=== PATIENT | female | born 1935 | race Caucasian/White ===

== ENCOUNTER 2016-12-13 10:31 | Inpatient (IN) | payer OTHER ==
[2016-12-13 10:45] VITALS: BMI 16.1
--- NOTE | 2016-12-13 10:49 | PDOC ---
History of Present Illness - General Chief Complaint: Shortness of Breath Stated Complaint: RESPIRATORY (PCP SENT) Time Seen by Provider: 12/13/16 10:48 - History of Present Illness Initial Comments: 81 year old female with PMH of HTN, HLD, chronic UTI, and emphysema (on 3L NC nightly for the pat 2 years) presenting with two weeks of worsening SOB and occasional confusion. Patient was in the intake for PFTs earlier today when she had a measured pulse ox of 82 on RA. She was not endorsing any SOB at the time but was sent to the ED for further workup after placing her on 2 L NC with return of saturation to 97%. She admits to a previous desat to 80s at her primary care visit a few weeks back as well. She has a chronic cough that is occasionally productive of yellow sputum and has not changed in quality recently. Per her daughter at bedside, she has also been more confused as of late. Denies fevers, chills, nausea, vomiting, diarrhea, or other sick symptoms. 12/13/16 12:44 Past History - Past Medical History Allergies/Adverse Reactions: Allergies Allergy/AdvReac Type Severity Reaction Status Date / Time levofloxacin [From Levaquin] Allergy Verified 12/13/16 10:45 prednisone AdvReac Verified 12/13/16 10:45 Home Medications: Ambulatory Orders Albuterol Sulfate [Proair Respiclick] 90 mcg IH BID 12/13/16 Aspirin [ASA -] 81 mg PO DAILY 12/13/16 Budesonide/Formeterol Fumarate [SYMBICORT 160/4.5mcg -] 1 inh PO BID 12/13/16 Calcium Carbonate/Vitamin D3 [Calcium 500-Vit D3 600 Tablet] 1 each PO DAILY Escitalopram Oxalate [Lexapro -] 15 mg PO DAILY 12/13/16 Hydrochlorothiazide [Hctz -] 12.5 mg PO BID 12/13/16 Ibandronate Sodium 150 mg PO MONTHLY 12/13/16 Magnesium 250 mg PO DAILY 12/13/16 Montelukast Na [Singulair -] 10 mg PO DAILY 12/13/16 Multivit-Min/Iron Fum/Folic AC [Ukxne-Qpqeekj-Thhphjdb Tablet] 1 tab PO DAILY Cancer: Yes (cervical 1973) COPD: Yes (emphysema) HTN: Yes - Surgical History Abdominal Surgery: (urinary track sx) - Suicide/Smoking/Psychosocial Hx Smoking History: Current every day smoker Number of Cigarettes Smoked Daily: 5 Information on smoking cessation initiated: Yes 'Breaking Loose' booklet given: 12/13/16 Hx Alcohol Use: No Drug/Substance Use Hx: No Substance Use Type: None Review of Systems - Review of Systems Constitutional: No: Chills, Diaphoresis, Fever HEENTM: No: Blurred Vision, Recent change in vision Respiratory: No: Cough, Orthopnea, Shortness of Breath Cardiac (ROS): No: Chest Pain ABD/GI: No: Diarrhea, Nausea, Poor Appetite : No: Dysuria, Discharge, Frequency Musculoskeletal: No: Back Pain Integumentary: No: Bruising, Change in Color Neurological: No: Headache, Numbness, Paresthesia *Physical Exam - Vital Signs Last Vital Signs Temp Pulse Resp BP Pulse Ox 98.2 F 80 19 133/74 82 L 12/13/16 10:42 12/13/16 10:42 12/13/16 10:42 12/13/16 10:42 12/13/16 10:42 - Physical Exam General Appearance: Yes: Nourished, Appropriately Dressed. No: Apparent Distress HEENT: positive: EOMI, Normal ENT Inspection, Normal Voice Neck: positive: Trachea midline, Normal Thyroid, Supple. negative: Tender, Rigid Respiratory/Chest: positive: Wheezing. negative: Chest Tender, Lungs Clear, Normal Breath Sounds, Respiratory Distress, Accessory Muscle Use Cardiovascular: positive: Regular Rhythm, Regular Rate, S1, S2, Murmur, Systolic Murmur (Midsystolic murmur) Gastrointestinal/Abdominal: positive: Normal Bowel Sounds, Flat, Soft. 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 Given her 110 (elevated WBC, hyponatremia, and age) point PSI score we will admit the patient with IV antibiotic therapy including azithromycin and ceftriaxone for CAP. Her UA also returned positive for WBCs but she has history of chronic UTI. She is asymptomatic for UTI but will be treated with ceftriaxone for her PNA. 12/13/16 14:30 *DC/Admit/Observation/Transfer Diagnosis at time of Disposition: Hypoxia Pneumonia Qualifiers: Pneumonia type: due to unspecified organism Laterality: left Lung location: lower lobe of lung Qualified Code(s): J18.1 - Lobar pneumonia, unspecified organism; J18.1 - Lobar pneumonia, unspecified organism; J18.1 - Lobar pneumonia , unspecified organism Urinary tract infection Qualifiers: Urinary tract infection type: site unspecified Hematuria presence: without hematuria Qualified Code(s): N39.0 - Urinary tract infection, site not specified ; N39.0 - Urinary tract infection, site not specified - Discharge Dispostion Disposition: HOME Admit: Yes - Referrals Referrals: Jay Salcedo [Primary Care Provider] -
[2016-12-13] MEDS ORDERED: ALBUTEROL SO4 2.5/IPRATROPIUM 0.5 INH SOL 3 ML VIAL.NEB. NEB ONE ×2 (11:24→11:34)
[2016-12-13 11:32] LABS: MCH 30.5 pg (25.7-33.7); MCHC 34.3 g/dl (32.0-36.0); MEAN CELL VOLUME 89.1 fl (80-96); MEAN PLT VOLUME 6.1 fl (7.5-11.1); PLATELET COUNT 255 K/MM3 (134-434); RDW 13.3 % (11.6-15.6); WHITE BLOOD COUNT 12.6 K/mm3 (4.0-10.0)
[2016-12-13 11:40] LABS: VENOUS PH 7.38 (7.32-7.42)
[2016-12-13 11:41] LABS: VENOUS BLOOD GAS HCO3 39.7 meq/L (19-25)
[2016-12-13 11:53] LABS: ALBUMIN 3.3 g/dl (3.4-5.0); ANION GAP 10 (8-16); CALCIUM 8.8 mg/dL (8.5-10.1); CO2 36 mmol/L (21-32); CREATININE 0.4 mg/dL (0.55-1.02); GLUCOSE,RANDOM 96 mg/dL (74-106); SGOT/AST 16 U/L (15-37); SGPT/ALT 21 U/L (12-78)
[2016-12-13 11:57] LABS: ALK PHOS 52 U/L (45-117); BILIRUBIN,TOTAL 0.6 mg/dL (0.2-1.0); CPK 40 IU/L (26-192); TOT PROT 6.9 g/dl (6.4-8.2); TROPONIN I < 0.02 ng/ml (0.00-0.05)
[2016-12-13 12:18] LABS: URINE APPEARANCE CLOUDY; URINE BILIRUBIN NEGATIVE (NEGATIVE); URINE BLOOD 1+ (NEGATIVE); URINE COLOR YELLOW; URINE GLUCOSE (UA) NEGATIVE (NEGATIVE); URINE KETONE NEGATIVE (NEGATIVE); URINE NITRITE NEGATIVE (NEGATIVE); URINE PROTEIN NEGATIVE (NEGATIVE); URINE UROBILINOGEN NEGATIVE mg/dL (0.2-1.0)
[2016-12-13 12:22] LABS: URINE MUCUS RARE; URINE RBC 1 /hpf (0-3); URINE WBC 143 /hpf (3-5)
[2016-12-13] MEDS ORDERED: AZITHROMYCIN IVPB 500 MG in DEXTROSE 5%-WATER - 250 ML IVPB ONE (12:47)
[2016-12-13] MEDS ORDERED: CEFTRIAXONE 50 ML ONE (12:49)
[2016-12-13] MEDS ORDERED: AZITHROMYCIN IVPB 250 ML IVPB ONE (12:49)
--- NOTE | 2016-12-13 12:53 | PDOC ---
Attending Attestation - Resident Resident Name: Jefe Dukes - ED Attending Attestation I have performed the following: I have examined & evaluated the patient, The case was reviewed & discussed with the resident, I agree w/resident's findings & plan, Exceptions are as noted - HPI HPI: 12/13/16 12:53 81 F with h/o HTN, emphysema on 2L home O2 at night, presenting to ER with SOB and hypoxia. Pt was at her pulm clinic appointment today for PFTs when she was found to be hypoxic to the 70s. Pt reports worsening SOB over the past several weeks. She denies orthopnea but states that she will occasionally have episodes of difficulty catching her breath. Pt denies F/C but endorses chronic nonproductive cough. She denies chest pain but reports L upper back pain. Pt states that she only uses oxygen at night time and not during the day. However, she was told by her PMD that she may need to start using daytime O2 as well. Pt denies leg swelling, denies calf pain, denies recent immobilization/travel, no h/o DVT/PE. - Physicial Exam PE: 12/13/16 13:00 "GENERAL: Awake, alert, and fully oriented, in no acute distress HEAD: No signs of trauma EYES: PERRLA, EOMI, sclera anicteric, conjunctiva clear ENT: Auricles normal inspection, hearing grossly normal, nares patent, oropharynx clear without exudates. Moist mucosa NECK: Nontender, no stepoffs, Normal ROM, supple, no lymphadenopathy, JVD, or masses LUNGS: LLL wheezes, no rales or rhonchi HEART: Regular rate and rhythm, normal S1 and S2, no murmurs, rubs or gallops ABDOMEN: Soft, nontender, normoactive bowel sounds. No guarding, no rebound. No masses EXTREMITIES: Normal range of motion, no edema. No clubbing or cyanosis. No cords, erythema, or tenderness NEUROLOGICAL: Cranial nerves II through XII intact. 5/5 strength and sensation in all extremities, Normal speech, normal gait SKIN: Warm, Dry, normal turgor, no rashes or lesions noted. " - Medical Decision Making 12/13/16 13:00 81 F with hypoxia and SOB. Exam concerning for LLL PNA. Possible worsening of pt 's chronic emphysema. No clinical signs/symptoms of DVT. EKG nonischemic and pt with no chest pain, making ACS unlikely. - Labs, trop - CXR 12/13/16 19:00 CXR shows PNA. Pt covered for CAP with ceftriaxone/azithro. Admit to hospitalist.
--- NOTE | 2016-12-13 14:52 | EKG ---
Test Reason : Blood Pressure : / mmHG Vent. Rate : 086 BPM Atrial Rate : 086 BPM P-R Int : 164 ms QRS Dur : 078 ms QT Int : 352 ms P-R-T Axes : 075 098 076 degrees QTc Int : 421 ms NORMAL SINUS RHYTHM LEFT ATRIAL ENLARGEMENT ANTEROLATERAL INFARCT , AGE UNDETERMINED ABNORMAL ECG WHEN COMPARED WITH ECG OF 21-MAY-2007 04:42, NO SIGNIFICANT CHANGE WAS FOUND Confirmed by ESTELLE SPRING MD ([id number]) on 12/13/2016 2:51:52 PM Referred By: Confirmed By:ESTELLE SPRING MD
--- NOTE | 2016-12-13 18:24 | HP ---
Admitting History and Physical - Primary Care Physician PCP: Merry Santiago - Admission History of Present Illness: 81 F with h/o HTN, emphysema on 2L home O2 at night, presenting to ER with SOB and hypoxia. Pt was at her pulm clinic appointment today for PFTs when she was found to be hypoxic to the 70s. Pt reports worsening SOB over the past several weeks. She denies orthopnea but states that she will occasionally have episodes of difficulty catching her breath. Pt states that she only uses oxygen at night time and not during the day. However, she was told by her PMD that she may need to start using daytime O2 as well. - Past Medical History Cardiovascular: Yes: HTN Pulmonary: Yes: COPD - Smoking History Smoking history: Current every day smoker Aproximately how many cigarettes per day: 5 - Alcohol/Substance Use Hx Alcohol Use: No Home Medications - Allergies Allergies/Adverse Reactions: Allergies Allergy/AdvReac Type Severity Reaction Status Date / Time levofloxacin [From Levaquin] Allergy Verified 12/13/16 10:45 prednisone AdvReac Verified 12/13/16 10:45 - Home Medications Home Medications: Ambulatory Orders Albuterol Sulfate [Proair Respiclick] 90 mcg IH BID 12/13/16 Aspirin [ASA -] 81 mg PO DAILY 12/13/16 Budesonide/Formeterol Fumarate [SYMBICORT 160/4.5mcg -] 1 inh PO BID 12/13/16 Calcium Carbonate/Vitamin D3 [Calcium 500-Vit D3 600 Tablet] 1 each PO DAILY Escitalopram Oxalate [Lexapro -] 15 mg PO DAILY 12/13/16 Hydrochlorothiazide [Hctz -] 12.5 mg PO BID 12/13/16 Magnesium 1 tab PO DAILY 12/13/16 Montelukast Na [Singulair -] 10 mg PO DAILY 12/13/16 Multivit-Min/Iron Fum/Folic AC [Recba-Ubccmsc-Zgpsevko Tablet] 1 tab PO DAILY Ramipril 2.5 mg PO DAILY 12/14/16 Amoxicillin/Potassium Clav [Augmentin 875-125 Tablet] 1 each PO BID #14 tablet 12/16/16 Physical Examination Vital Signs: Vital Signs Temperature 98.0 F 12/13/16 16:24 Pulse Rate 86 12/13/16 16:24 Respiratory Rate 16 12/13/16 16:24 Blood Pressure 91/54 12/13/16 16:24 O2 Sat by Pulse Oximetry (%) 91 L 12/13/16 16:24 Constitutional: Yes: No Distress HENT: Yes: Atraumatic Neck: Yes: Supple Cardiovascular: Yes: Regular Rate and Rhythm Respiratory: Yes: Rhonchi Gastrointestinal: Yes: Normal Bowel Sounds Extremities: Yes: WNL Neurological: Yes: Alert, Oriented Problem List - Problems (1) Hypoxia Assessment/Plan: on oxygen nc Code(s): R09.02 - HYPOXEMIA (2) PNA (pneumonia) Assessment/Plan: on iv abx Code(s): J18.9 - PNEUMONIA, UNSPECIFIED ORGANISM Qualifiers: Pneumonia type: due to unspecified organism Laterality: left Lung location: lower lobe of lung Qualified Code(s): J18.1 - Lobar pneumonia, unspecified organism; J18.1 - Lobar pneumonia, unspecified organism; J18.1 - Lobar pneumonia, unspecified organism (3) UTI (urinary tract infection) Assessment/Plan: uc pending on abx Code(s): N39.0 - URINARY TRACT INFECTION, SITE NOT SPECIFIED Qualifiers: Urinary tract infection type: site unspecified Hematuria presence: without hematuria Qualified Code(s): N39.0 - Urinary tract infection, site not specified; N39.0 - Urinary tract infection, site not specified; R31.9 - Hematuria, unspecified; R31.9 - Hematuria, unspecified (4) COPD (chronic obstructive pulmonary disease) Assessment/Plan: active smoker on home O2 duo neb Code(s): J44.9 - CHRONIC OBSTRUCTIVE PULMONARY DISEASE, UNSPECIFIED Assessment/Plan Laboratory Tests 12/13/16 12/13/16 12/13/16 11:24 11:24 11:24 WBC 12.6 H RBC 4.28 Hgb 13.1 Hct 38.1 MCV 89.1 MCH 30.5 MCHC 34.3 RDW 13.3 Plt Count 255 MPV 6.1 L VBG pH POC VBG pCO2 POC VBG pO2 Mixed VBG HCO3 Sodium 128 L Potassium 3.9 Chloride 82 L Carbon Dioxide 36 H Anion Gap 10 BUN 14 Creatinine 0.4 L Creat Clearance w eGFR > 60 Random Glucose 96 Calcium 8.8 Total Bilirubin 0.6 AST 16 ALT 21 Alkaline Phosphatase 52 Creatine Kinase 40 Cancelled Troponin I < 0.02 Cancelled B-Natriuretic Peptide 342.23 Cancelled Total Protein 6.9 Albumin 3.3 L Urine Color Urine Appearance Urine pH Ur Specific [place] Urine Protein Urine Glucose (UA) Urine Ketones Urine Blood Urine Nitrite Urine Bilirubin Urine Urobilinogen Ur Leukocyte Esterase Urine RBC Urine WBC Ur Epithelial Cells Urine Mucus 12/13/16 12/13/16 11:35 12:09 WBC RBC Hgb Hct MCV MCH MCHC RDW Plt Count MPV VBG pH 7.38 POC VBG pCO2 69.1 H* POC VBG pO2 25.0 L Mixed VBG HCO3 39.7 H Sodium Potassium Chloride Carbon Dioxide Anion Gap BUN Creatinine Creat Clearance w eGFR Random Glucose Calcium Total Bilirubin AST ALT Alkaline Phosphatase Creatine Kinase Troponin I B-Natriuretic Peptide Total Protein Albumin Urine Color Yellow Urine Appearance Cloudy Urine pH 7.0 Ur Specific [place] 1.015 Urine Protein Negative Urine Glucose (UA) Negative Urine Ketones Negative Urine Blood 1+ H Urine Nitrite Negative Urine Bilirubin Negative Urine Urobilinogen Negative Ur Leukocyte Esterase 3+ H Urine RBC 1 Urine WBC 143 Ur Epithelial Cells Rare Urine Mucus Rare Active Medications Generic Name Dose Route Start Last Admin Trade Name Freq PRN Reason Stop Dose Admin Acetaminophen 650 mg 12/13/16 18:35 Tylenol - PO Q6H PRN FEVER OR PAIN Aspirin 81 mg 12/14/16 10:00 Asa - PO DAILY [facility] Budesonide/Formoterol Fumarate 1 puff 12/13/16 22:00 Symbicort 160/4.5mcg - IH BID [facility] Escitalopram Oxalate 15 mg 12/14/16 10:00 Lexapro - PO DAILY [facility] Hydrochlorothiazide 12.5 mg 12/13/16 22:00 Hctz - PO BID [facility] Azithromycin 500 mg/ Dextrose 250 mls @ 250 mls/hr 12/14/16 10:00 IVPB DAILY [facility] CEFTRIAXONE 1 G/50 ML PREMIX 50 mls @ 200 mls/hr 12/14/16 10:00 Ceftriaxone 1 Gm-D5w Bag IVPB 12/14/16 11:59 DAILY [facility] Sodium Chloride 1,000 mls @ 75 mls/hr 12/13/16 19:15 12/13/16 19:11 Normal Saline - IV 75 mls/hr ASDIR [facility] Administration Montelukast Sodium 10 mg 12/14/16 10:00 Singulair - PO DAILY [facility] Multivitamins/Minerals/Vitamin C 1 tab 12/14/16 10:00 Tab-A-Vit - PO DAILY [facility] Non-Formulary Medication 90 mcg 12/13/16 22:00 Albuterol Sulfate [Proair Respiclick] IH BID [facility]
[2016-12-13] MEDS ORDERED: ACETAMINOPHEN 325 MG TABLET (FP) PO PRN (18:35)
[2016-12-13] MEDS: SODIUM CHLORIDE 1,000 ML IV SCH (19:11)
[2016-12-13 19:56] LABS: URINE LEUK ESTERASE 3+ (NEGATIVE)
[2016-12-13] MEDS: BUDESONIDE/FORMETEROL FUMARATE 160/4.5 mcg INHALER IH SCH (21:38)
[2016-12-13] MEDS: HYDROCHLOROTHIAZIDE 12.5 MG CAPSULE (FP) PO SCH (21:47)
[2016-12-13] MEDS ORDERED: ALBUTEROL SULFATE 90 MCG IH PRN (22:00)
[2016-12-14] MEDS ORDERED: PIPERACILLIN/TAZOB 3.375 GM 50 ML IVPB SCH (02:00)
[2016-12-14] MEDS: PIPERACILLIN/TAZOB 3.375 GM 50 ML IVPB SCH ×3 (02:23→17:33)
[2016-12-14 06:44] LABS: BASOPHIL 0.3 % (0-2.0); EOSINOPHIL 1.2 % (0-4.5); MCH 30.2 pg (25.7-33.7); MCHC 33.7 g/dl (32.0-36.0); MEAN CELL VOLUME 89.8 fl (80-96); MEAN PLT VOLUME 6.4 fl (7.5-11.1); NEUTROPHILS 62.1 % (42.8-82.8); PLATELET COUNT 258 K/MM3 (134-434); RDW 13.2 % (11.6-15.6); WHITE BLOOD COUNT 7.9 K/mm3 (4.0-10.0)
[2016-12-14] MEDS ORDERED: PT OWN MED DRAWER 7, Y5N ONE ×3 (06:44→21:49)
[2016-12-14 07:16] LABS: ALBUMIN 3.1 g/dl (3.4-5.0); ALK PHOS 53 U/L (45-117); ANION GAP 9 (8-16); BILIRUBIN,TOTAL 0.6 mg/dL (0.2-1.0); CALCIUM 8.4 mg/dL (8.5-10.1); CO2 37 mmol/L (21-32); CREATININE 0.4 mg/dL (0.55-1.02); GLUCOSE,RANDOM 87 mg/dL (74-106); SGOT/AST 15 U/L (15-37); SGPT/ALT 19 U/L (12-78); TOT PROT 6.4 g/dl (6.4-8.2)
[2016-12-14] MEDS: SODIUM CHLORIDE 1,000 ML IV SCH (08:24)
[2016-12-14] MEDS ORDERED: CEFTRIAXONE 1 G/50 ML PREMIX 50 ML IVPB SCH (10:00)
[2016-12-14] MEDS ORDERED: MONTELUKAST NA 10 MG TABLET PO SCH (10:00)
[2016-12-14] MEDS: AZITHROMYCIN IVPB 500 MG in DEXTROSE 5%-WATER - 250 ML IVPB SCH (10:23)
[2016-12-14] MEDS: ESCITALOPRAM OXALATE 10 MG TABLET (FP) PO SCH (10:23)
[2016-12-14] MEDS: ASPIRIN 81 MG CHEWABLE TABLETS PO SCH (10:23)
[2016-12-14] MEDS: HYDROCHLOROTHIAZIDE 12.5 MG CAPSULE (FP) PO SCH ×2 (10:23→21:51)
[2016-12-14] MEDS: MULTIVITAMINS (DAILY MVI) TABLET (FP) PO SCH (10:23)
[2016-12-14] MEDS: BUDESONIDE/FORMETEROL FUMARATE 160/4.5 mcg INHALER IH SCH ×2 (10:30→21:50)
[2016-12-14] MEDS: POLYETHYLENE GLYCOL 3350 119 GM BTL PO SCH (13:14)
--- NOTE | 2016-12-14 14:53 | PN ---
Progress Note, Physician History of Present Illness: doing well - Current Medication List Current Medications: Active Medications Acetaminophen (Tylenol -) 650 mg PO Q6H PRN PRN Reason: FEVER OR PAIN Aspirin (Asa -) 81 mg PO DAILY [facility] Last Admin: 12/14/16 10:23 Dose: 81 mg Budesonide/Formoterol Fumarate (Symbicort 160/4.5mcg -) 1 puff IH BID [facility] Last Admin: 12/14/16 10:30 Dose: 1 puff Escitalopram Oxalate (Lexapro -) 15 mg PO DAILY [facility] Last Admin: 12/14/16 10:23 Dose: 15 mg Hydrochlorothiazide (Hctz -) 12.5 mg PO BID [facility] Last Admin: 12/14/16 10:23 Dose: 12.5 mg Azithromycin 500 mg/ Dextrose 250 mls @ 250 mls/hr IVPB DAILY [facility] Last Admin: 12/14/16 10:23 Dose: 250 mls/hr Sodium Chloride (Normal Saline -) 1,000 mls @ 75 mls/hr IV ASDIR [facility] Last Admin: 12/14/16 08:24 Dose: 75 mls/hr Piperacillin/Tazobactam/Dextrose (Zosyn 3.375gm Ivpb (Premix)) 50 mls @ 100 mls /hr IVPB Q8H-IV [facility] PRN Reason: Protocol Last Admin: 12/14/16 10:23 Dose: 100 mls/hr Montelukast Sodium (Singulair -) 10 mg PO [facility] Multivitamins/Minerals/Vitamin C (Tab-A-Vit -) 1 tab PO DAILY [facility] Last Admin: 12/14/16 10:23 Dose: 1 tab Pt's Own Med ( Albuterol Sulfate [ Proair Respiclick] 90 Mcg) 90 mcg IH Q4H PRN Last Admin: 12/14/16 08:23 Dose: 90 mcg Polyethylene Glycol (Miralax (For Daily Use) -) 17 gm PO DAILY [facility] Last Admin: 12/14/16 13:14 Dose: 17 gm Ramipril (Altace -) 2.5 mg PO DAILY [facility] - Objective Vital Signs: Vital Signs Temperature 97.9 F 12/14/16 08:00 Pulse Rate 78 12/14/16 08:00 Respiratory Rate 18 12/14/16 08:00 Blood Pressure 157/83 12/14/16 08:00 O2 Sat by Pulse Oximetry (%) 98 12/14/16 09:00 Constitutional: Yes: No Distress HENT: Yes: Atraumatic Neck: Yes: Supple Cardiovascular: Yes: Regular Rate and Rhythm Respiratory: Yes: CTA Bilaterally, Rhonchi Gastrointestinal: Yes: Normal Bowel Sounds Extremities: Yes: WNL Neurological: Yes: Alert, Oriented Labs: CBC, BMP 12/14/16 05:40 12/14/16 05:40 Problem List - Problems (1) Hypoxia Assessment/Plan: on oxygen nc Code(s): R09.02 - HYPOXEMIA (2) PNA (pneumonia) Assessment/Plan: on iv abx Code(s): J18.9 - PNEUMONIA, UNSPECIFIED ORGANISM Qualifiers: Pneumonia type: due to unspecified organism Laterality: left Lung location: lower lobe of lung Qualified Code(s): J18.1 - Lobar pneumonia, unspecified organism; J18.1 - Lobar pneumonia, unspecified organism; J18.1 - Lobar pneumonia, unspecified organism (3) UTI (urinary tract infection) Assessment/Plan: pending will repeat as contaminated Code(s): N39.0 - URINARY TRACT INFECTION, SITE NOT SPECIFIED Qualifiers: Urinary tract infection type: site unspecified Hematuria presence: without hematuria Qualified Code(s): N39.0 - Urinary tract infection, site not specified; N39.0 - Urinary tract infection, site not specified; R31.9 - Hematuria, unspecified; R31.9 - Hematuria, unspecified
--- NOTE | 2016-12-14 16:01 | CON.PULM ---
Consult Consult Specialty:: PULMONARY Referred by:: PMD Reason for Consultation:: SOB/COUGH/SPUTUM/HYPOXEMIA - History of Present Illness Chief Complaint: SOB History of Present Illness: 81 year old female with PMH of HTN, HLD, chronic UTI, and emphysema (on 3L NC nightly for the pat 2 years) presenting with two weeks of worsening SOB and occasional confusion. Patient was in the intake for PFTs earlier today when she had a measured pulse ox of 82 on RA. She was not endorsing any SOB at the time but was sent to the ED for further workup after placing her on 2 L NC with return of saturation to 97%. She admits to a previous desat to 80s at her primary care visit a few weeks back as well. She has a chronic cough that is occasionally productive of yellow sputum and has not changed in quality recently. Per her daughter at bedside, she has also been more confused as of late. Denies fevers, chills, nausea, vomiting, diarrhea, or other sick symptoms. 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 No: AFIB Pulmonary: Yes: COPD, O2 Dependent. No: Previously Intubated Gastrointestinal: No: Ascites Hepatobiliary: No: Cirrhosis Renal/: No: Renal Failure ...: No Heme/Onc: No: Anemia Infectious Disease: No: AIDS Psych: No: Addictions Musculoskeletal: No: Bursitis Rheumatology: No: Fibromyalgia ENT: No: Allergic Rhinitis Endocrine: No: Diabetes Mellitus - Alcohol/Substance Use Hx Alcohol Use: No - Smoking History Smoking history: Current every day smoker Aproximately how many cigarettes per day: 5 Home Medications - Allergies Allergies/Adverse Reactions: Allergies Allergy/AdvReac Type Severity Reaction Status Date / Time levofloxacin [From Levaquin] Allergy Verified 12/13/16 10:45 prednisone AdvReac Verified 12/13/16 10:45 - Home Medications Home Medications: Ambulatory Orders Albuterol Sulfate [Proair Respiclick] 90 mcg IH BID 12/13/16 Aspirin [ASA -] 81 mg PO DAILY 12/13/16 Budesonide/Formeterol Fumarate [SYMBICORT 160/4.5mcg -] 1 inh PO BID 12/13/16 Calcium Carbonate/Vitamin D3 [Calcium 500-Vit D3 600 Tablet] 1 each PO DAILY Escitalopram Oxalate [Lexapro -] 15 mg PO DAILY 12/13/16 Hydrochlorothiazide [Hctz -] 12.5 mg PO BID 12/13/16 Magnesium 1 tab PO DAILY 12/13/16 Montelukast Na [Singulair -] 10 mg PO DAILY 12/13/16 Multivit-Min/Iron Fum/Folic AC [Kptcc-Tncidfz-Qcnkeakx Tablet] 1 tab PO DAILY Ramipril 2.5 mg PO DAILY 12/14/16 Family Disease History - Family Disease History Family History: Unremarkable Review of Systems - Review of Systems Cardiovascular: reports: No Symptoms Respiratory: reports: Cough, Exercise Intolerance, SOB, SOB on Exertion. denies : Hemoptysis, Orthopnea, Wheezing Gastrointestinal: reports: No Symptoms Physical Exam Vital Sings: Vital Signs Temperature 98.4 F 12/14/16 15:39 Pulse Rate 79 12/14/16 15:39 Respiratory Rate 18 12/14/16 15:39 Blood Pressure 126/58 12/14/16 15:39 O2 Sat by Pulse Oximetry (%) 98 12/14/16 09:00 Constitutional: Yes: Calm Eyes: Yes: EOM Intact HENT: Yes: Normocephalic Neck: Yes: Trachea Midline Cardiovascular: Yes: S1, S2 Gastrointestinal: Yes: Soft Edema: No Neurological: Yes: Alert Labs: CBC, BMP 12/14/16 05:40 12/14/16 05:40 REST REVIEWED Imaging - Results Chest X-ray: Report Reviewed, Image Reviewed Problem List - Problems (1) Hypoxia Code(s): R09.02 - HYPOXEMIA (2) PNA (pneumonia) Code(s): J18.9 - PNEUMONIA, UNSPECIFIED ORGANISM Qualifiers: Pneumonia type: due to unspecified organism Laterality: left Lung location: lower lobe of lung Qualified Code(s): J18.1 - Lobar pneumonia, unspecified organism; J18.1 - Lobar pneumonia, unspecified organism; J18.1 - Lobar pneumonia, unspecified organism (3) UTI (urinary tract infection) Code(s): N39.0 - URINARY TRACT INFECTION, SITE NOT SPECIFIED Qualifiers: Urinary tract infection type: site unspecified Hematuria presence: without hematuria Qualified Code(s): N39.0 - Urinary tract infection, site not specified; N39.0 - Urinary tract infection, site not specified; R31.9 - Hematuria, unspecified; R31.9 - Hematuria, unspecified Assessment/Plan A/E COPD CHRONIC O2 USE ACTIVE SMOKER ICS/LABA/ISAAC/LAMA/ANTIBIOTICS/O2/DALIRESP AVOID SYSTEMIC STEROIDS DUE TO PREVIOUS ANXIETY-DEPRESSIVE EPISODE REQUIRING HOSPITALIZATION WILL FOLLOW Nydia ESCOBAR MD
--- NOTE | 2016-12-14 17:11 | CON.ID ---
Consult Consult Specialty:: infectious diseases Reason for Consultation:: copd exaceberation,pneumonia - History of Present Illness Chief Complaint: sob History of Present Illness: 81 year old female with PMH of HTN, HLD, chronic UTI, and emphysema on nasal cannula presenting with two weeks of worsening SOB and occasional confusion. She came in for PFTs earlier today when she had a measured pulse ox of 82 on RA. was sent to the ED for further workup after placing her on 2 L NC with return of saturation to 97%. according to her daughter her desating has been going for quite some time and she mentions that since summer she has seen her mother detoriate her night oxygen use has been constant for quite a few years she is thin as is her body status according to the patient he color of sputum has changed from yellow to greenish to yellow patient has a known history of mvp - History Source History Provided By: Patient, Family Member Limitations to Obtaining History: Other (forgetfulness) - Past Medical History [employer]: No: Alzheimer's Cardio/Vascular: Yes: HTN. No: AFIB Pulmonary: Yes: COPD, O2 Dependent. No: Previously Intubated Gastrointestinal: No: Ascites Hepatobiliary: No: Cirrhosis Renal/: No: Renal Failure ...: No Infectious Disease: No: AIDS Psych: No: Addictions Musculoskeletal: No: Bursitis Rheumatology: No: Fibromyalgia ENT: No: Allergic Rhinitis Endocrine: No: Diabetes Mellitus - Alcohol/Substance Use Hx Alcohol Use: No - Smoking History Smoking history: Current every day smoker Aproximately how many cigarettes per day: 5 Home Medications - Allergies Allergies/Adverse Reactions: Allergies Allergy/AdvReac Type Severity Reaction Status Date / Time levofloxacin [From Levaquin] Allergy Verified 12/13/16 10:45 prednisone AdvReac Verified 12/13/16 10:45 - Home Medications Home Medications: Ambulatory Orders Albuterol Sulfate [Proair Respiclick] 90 mcg IH BID 12/13/16 Aspirin [ASA -] 81 mg PO DAILY 12/13/16 Budesonide/Formeterol Fumarate [SYMBICORT 160/4.5mcg -] 1 inh PO BID 12/13/16 Calcium Carbonate/Vitamin D3 [Calcium 500-Vit D3 600 Tablet] 1 each PO DAILY Escitalopram Oxalate [Lexapro -] 15 mg PO DAILY 12/13/16 Hydrochlorothiazide [Hctz -] 12.5 mg PO BID 12/13/16 Magnesium 1 tab PO DAILY 12/13/16 Montelukast Na [Singulair -] 10 mg PO DAILY 12/13/16 Multivit-Min/Iron Fum/Folic AC [Jlatn-Vrnybbv-Vwugbzpm Tablet] 1 tab PO DAILY Ramipril 2.5 mg PO DAILY 12/14/16 Review of Systems - Review of Systems Constitutional: reports: No Symptoms Eyes: reports: No Symptoms HENT: reports: No Symptoms Neck: reports: No Symptoms Cardiovascular: reports: No Symptoms Respiratory: reports: Cough, SOB, Other Gastrointestinal: reports: No Symptoms Genitourinary: reports: No Symptoms Musculoskeletal: reports: No Symptoms Integumentary: reports: No Symptoms Neurological: reports: No Symptoms Endocrine: reports: No Symptoms Hematology/Lymphatic: reports: No Symptoms Psychiatric: reports: No Symptoms Physical Exam Vital Signs: Vital Signs Temperature 98.4 F 12/14/16 15:39 Pulse Rate 79 12/14/16 15:39 Respiratory Rate 18 12/14/16 15:39 Blood Pressure 126/58 12/14/16 15:39 O2 Sat by Pulse Oximetry (%) 98 12/14/16 09:00 Constitutional: Yes: Thin Eyes: Yes: Conjunctiva Clear HENT: Yes: Atraumatic Neck: Yes: Supple, Trachea Midline Cardiovascular: Yes: Regular Rate and Rhythm Respiratory: Yes: On Nasal O2, Poor Air Entry, Other (decreased air entry at the bases) Gastrointestinal: Yes: Normal Bowel Sounds, Soft Musculoskeletal: Yes: WNL Extremities: Yes: WNL Neurological: Yes: Alert, Oriented Psychiatric: Yes: Alert, Oriented Labs: CBC, BMP 12/14/16 05:40 12/14/16 05:40 Imaging - Results Chest X-ray: Report Reviewed, Image Reviewed Assessment/Plan Problem List - Problems (1) Hypoxia Code(s): R09.02 - HYPOXEMIA (2) PNA (pneumonia) Code(s): J18.9 - PNEUMONIA, UNSPECIFIED ORGANISM Qualifiers: Pneumonia type: due to unspecified organism Laterality: left Lung location: lower lobe of lung Qualified Code(s): J18.1 - Lobar pneumonia, unspecified organism; J18.1 - Lobar pneumonia, unspecified organism; J18.1 - Lobar pneumonia, unspecified organism (3) UTI (urinary tract infection) Code(s): N39.0 - URINARY TRACT INFECTION, SITE NOT SPECIFIED Qualifiers: Urinary tract infection type: site unspecified Hematuria presence: without hematuria Qualified Code(s): N39.0 - Urinary tract infection, site not specified; N39.0 - Urinary tract infection, site not specified; R31.9 - Hematuria, unspecified; R31.9 - Hematuria, unspecified plan will continue zosyn nutrition incentive rosina pul rest as per primary sputum culture
[2016-12-14] MEDS: TIOTROPIUM BROMIDE 18 MCG/INH (DEVICE W/ 5 CAPSULES) IH SCH (18:45)
[2016-12-14] MEDS: MONTELUKAST NA 10 MG TABLET PO SCH (21:51)
[2016-12-15] MEDS: ALBUTEROL SO4 0.083% IH SOL 2.5 MG/3 ML VIAL.NEB. NEB SCH ×3 (00:03→22:20)
[2016-12-15] MEDS: PIPERACILLIN/TAZOB 3.375 GM 50 ML IVPB SCH ×3 (02:18→19:00)
[2016-12-15] MEDS ORDERED: PT OWN MED DRAWER 7, Y5N ONE ×4 (10:41→21:50)
[2016-12-15] MEDS: AZITHROMYCIN IVPB 500 MG in DEXTROSE 5%-WATER - 250 ML IVPB SCH (10:46)
[2016-12-15] MEDS: HYDROCHLOROTHIAZIDE 12.5 MG CAPSULE (FP) PO SCH ×2 (11:23→21:39)
[2016-12-15] MEDS: RAMIPRIL 2.5 MG CAPSULE (FP) PO SCH (11:23)
[2016-12-15] MEDS: ESCITALOPRAM OXALATE 10 MG TABLET (FP) PO SCH (11:23)
[2016-12-15] MEDS: MULTIVITAMINS (DAILY MVI) TABLET (FP) PO SCH (11:23)
[2016-12-15] MEDS: ROFLUMILAST 500 MCG TABLET PO SCH (11:24)
[2016-12-15] MEDS: ASPIRIN 81 MG CHEWABLE TABLETS PO SCH (11:24)
[2016-12-15] MEDS: BUDESONIDE/FORMETEROL FUMARATE 160/4.5 mcg INHALER IH SCH ×2 (11:25→21:39)
[2016-12-15] MEDS: TIOTROPIUM BROMIDE 18 MCG/INH (DEVICE W/ 5 CAPSULES) IH SCH (11:25)
[2016-12-15] MEDS: POLYETHYLENE GLYCOL 3350 119 GM BTL PO SCH (11:25)
--- NOTE | 2016-12-15 13:01 | PN ---
Progress Note (short form) - Note Progress Note: PULMONARY VSS/AFEBRILE ANICTERIC DIMINISHED B/L BREATH SOUNDS S1S2 BS+ NO EDEMA LABS/MEDS/NOTES/IMAGES/MICRO REVIEWED (1) Hypoxia Code(s): R09.02 - HYPOXEMIA (2) PNA (pneumonia) Code(s): J18.9 - PNEUMONIA, UNSPECIFIED ORGANISM Qualifiers: Pneumonia type: due to unspecified organism Laterality: left Lung location: lower lobe of lung Qualified Code(s): J18.1 - Lobar pneumonia, unspecified organism; J18.1 - Lobar pneumonia, unspecified organism; J18.1 - Lobar pneumonia, unspecified organism (3) UTI (urinary tract infection) Code(s): N39.0 - URINARY TRACT INFECTION, SITE NOT SPECIFIED Qualifiers: Urinary tract infection type: site unspecified Hematuria presence: without hematuria Qualified Code(s): N39.0 - Urinary tract infection, site not specified; N39.0 - Urinary tract infection, site not specified; R31.9 - Hematuria, unspecified; R31.9 - Hematuria, unspecified A/E COPD LEFT LOWEWR LOBE INFILTRATE CHRONIC O2 USE ACTIVE SMOKER ICS/LABA/ISAAC/LAMA/ANTIBIOTICS/O2/DALIRESP AVOID SYSTEMIC STEROIDS DUE TO PREVIOUS ANXIETY-DEPRESSIVE EPISODE REQUIRING HOSPITALIZATION WILL ORDER CT CHEST/ECHO Nydia ESCOBAR MD Problem List - Problems (1) Hypoxia Code(s): R09.02 - HYPOXEMIA (2) PNA (pneumonia) Code(s): J18.9 - PNEUMONIA, UNSPECIFIED ORGANISM Qualifiers: Pneumonia type: due to unspecified organism Laterality: left Lung location: lower lobe of lung Qualified Code(s): J18.1 - Lobar pneumonia, unspecified organism; J18.1 - Lobar pneumonia, unspecified organism; J18.1 - Lobar pneumonia, unspecified organism (3) UTI (urinary tract infection) Code(s): N39.0 - URINARY TRACT INFECTION, SITE NOT SPECIFIED Qualifiers: Urinary tract infection type: site unspecified Hematuria presence: without hematuria Qualified Code(s): N39.0 - Urinary tract infection, site not specified; N39.0 - Urinary tract infection, site not specified; R31.9 - Hematuria, unspecified; R31.9 - Hematuria, unspecified
--- NOTE | 2016-12-15 16:44 | PN ---
Progress Note, Physician History of Present Illness: feeling better family in room discussed with them - Current Medication List Current Medications: Active Medications Acetaminophen (Tylenol -) 650 mg PO Q6H PRN PRN Reason: FEVER OR PAIN Albuterol Sulfate (Ventolin 0.083% Nebulizer Soln -) 1 amp NEB Q8H [facility] Last Admin: 12/15/16 13:50 Dose: Not Given Aspirin (Asa -) 81 mg PO DAILY [facility] Last Admin: 12/15/16 11:24 Dose: 81 mg Budesonide/Formoterol Fumarate (Symbicort 160/4.5mcg -) 1 puff IH BID [facility] Last Admin: 12/15/16 11:25 Dose: 1 puff Escitalopram Oxalate (Lexapro -) 15 mg PO DAILY [facility] Last Admin: 12/15/16 11:23 Dose: 15 mg Hydrochlorothiazide (Hctz -) 12.5 mg PO BID [facility] Last Admin: 12/15/16 11:23 Dose: 12.5 mg Azithromycin 500 mg/ Dextrose 250 mls @ 250 mls/hr IVPB DAILY [facility] Last Admin: 12/15/16 10:46 Dose: 250 mls/hr Piperacillin/Tazobactam/Dextrose (Zosyn 3.375gm Ivpb (Premix)) 50 mls @ 100 mls /hr IVPB Q8H-IV [facility] PRN Reason: Protocol Last Admin: 12/15/16 11:26 Dose: 100 mls/hr Montelukast Sodium (Singulair -) 10 mg PO HS [facility] Last Admin: 12/14/16 21:51 Dose: 10 mg Multivitamins/Minerals/Vitamin C (Tab-A-Vit -) 1 tab PO DAILY [facility] Last Admin: 12/15/16 11:23 Dose: 1 tab Pt's Own Med ( Albuterol Sulfate [ Proair Respiclick] 90 Mcg) 90 mcg IH Q4H PRN Last Admin: 12/14/16 08:23 Dose: 90 mcg Polyethylene Glycol (Miralax (For Daily Use) -) 17 gm PO DAILY [facility] Last Admin: 12/15/16 11:25 Dose: 17 gm Ramipril (Altace -) 2.5 mg PO DAILY [facility] Last Admin: 12/15/16 11:23 Dose: 2.5 mg Roflumilast (Daliresp -) 500 mcg PO DAILY [facility] Last Admin: 12/15/16 11:24 Dose: 500 mcg Tiotropium [place] (Spiriva -) 1 puff IH DAILY [facility] Last Admin: 12/15/16 11:25 Dose: 1 puff - Objective Vital Signs: Vital Signs Temperature 97.5 F L 12/15/16 15:32 Pulse Rate 77 12/15/16 15:32 Respiratory Rate 20 12/15/16 06:00 Blood Pressure 115/65 12/15/16 15:32 O2 Sat by Pulse Oximetry (%) 96 12/15/16 09:00 Constitutional: Yes: No Distress, Calm, Thin Cardiovascular: Yes: Regular Rate and Rhythm Respiratory: Yes: On Nasal O2, Rhonchi, Other (poor entry on both lower lobes) Gastrointestinal: Yes: Normal Bowel Sounds, Soft Musculoskeletal: Yes: WNL Extremities: Yes: WNL Neurological: Yes: Alert, Oriented Psychiatric: Yes: Alert Labs: CBC, BMP 12/14/16 05:40 12/14/16 05:40 - ....Imaging Cat Scan: Report Reviewed, Image Reviewed Assessment/Plan Problem List - Problems (1) Hypoxia Code(s): R09.02 - HYPOXEMIA (2) PNA (pneumonia) Code(s): J18.9 - PNEUMONIA, UNSPECIFIED ORGANISM Qualifiers: Pneumonia type: due to unspecified organism Laterality: left Lung location: lower lobe of lung Qualified Code(s): J18.1 - Lobar pneumonia, unspecified organism; J18.1 - Lobar pneumonia, unspecified organism; J18.1 - Lobar pneumonia, unspecified organism (3) UTI (urinary tract infection) Code(s): N39.0 - URINARY TRACT INFECTION, SITE NOT SPECIFIED Qualifiers: Urinary tract infection type: site unspecified Hematuria presence: without hematuria Qualified Code(s): N39.0 - Urinary tract infection, site not specified; N39.0 - Urinary tract infection, site not specified; R31.9 - Hematuria, unspecified; R31.9 - Hematuria, unspecified plan continue abx await for sputum cx await for all other cx rest as per pul/primary incentive rosina
--- NOTE | 2016-12-15 17:38 | PN ---
Progress Note, Physician History of Present Illness: doing well - Current Medication List Current Medications: Active Medications Acetaminophen (Tylenol -) 650 mg PO Q6H PRN PRN Reason: FEVER OR PAIN Albuterol Sulfate (Ventolin 0.083% Nebulizer Soln -) 1 amp NEB Q8H [facility] Last Admin: 12/15/16 13:50 Dose: Not Given Aspirin (Asa -) 81 mg PO DAILY [facility] Last Admin: 12/15/16 11:24 Dose: 81 mg Budesonide/Formoterol Fumarate (Symbicort 160/4.5mcg -) 1 puff IH BID [facility] Last Admin: 12/15/16 11:25 Dose: 1 puff Escitalopram Oxalate (Lexapro -) 15 mg PO DAILY [facility] Last Admin: 12/15/16 11:23 Dose: 15 mg Hydrochlorothiazide (Hctz -) 12.5 mg PO BID [facility] Last Admin: 12/15/16 11:23 Dose: 12.5 mg Azithromycin 500 mg/ Dextrose 250 mls @ 250 mls/hr IVPB DAILY [facility] Last Admin: 12/15/16 10:46 Dose: 250 mls/hr Piperacillin/Tazobactam/Dextrose (Zosyn 3.375gm Ivpb (Premix)) 50 mls @ 100 mls /hr IVPB Q8H-IV [facility] PRN Reason: Protocol Last Admin: 12/15/16 11:26 Dose: 100 mls/hr Montelukast Sodium (Singulair -) 10 mg PO HS [facility] Last Admin: 12/14/16 21:51 Dose: 10 mg Multivitamins/Minerals/Vitamin C (Tab-A-Vit -) 1 tab PO DAILY [facility] Last Admin: 12/15/16 11:23 Dose: 1 tab Pt's Own Med ( Albuterol Sulfate [ Proair Respiclick] 90 Mcg) 90 mcg IH Q4H PR[facility] Last Admin: 12/14/16 08:23 Dose: 90 mcg Polyethylene Glycol (Miralax (For Daily Use) -) 17 gm PO DAILY [facility] Last Admin: 12/15/16 11:25 Dose: 17 gm Ramipril (Altace -) 2.5 mg PO DAILY [facility] Last Admin: 12/15/16 11:23 Dose: 2.5 mg Roflumilast (Daliresp -) 500 mcg PO DAILY [facility] Last Admin: 12/15/16 11:24 Dose: 500 mcg Tiotropium [place] (Spiriva -) 1 puff IH DAILY [facility] Last Admin: 12/15/16 11:25 Dose: 1 puff - Objective Vital Signs: Vital Signs Temperature 97.5 F L 12/15/16 15:32 Pulse Rate 77 12/15/16 15:32 Respiratory Rate 20 12/15/16 06:00 Blood Pressure 115/65 12/15/16 15:32 O2 Sat by Pulse Oximetry (%) 96 12/15/16 09:00 HENT: Yes: WNL Cardiovascular: Yes: Regular Rate and Rhythm Respiratory: Yes: CTA Bilaterally Gastrointestinal: Yes: Normal Bowel Sounds Extremities: Yes: WNL Neurological: Yes: Alert, Oriented Labs: CBC, BMP 12/14/16 05:40 12/14/16 05:40 Problem List - Problems (1) Hypoxia Assessment/Plan: on oxygen nc Code(s): R09.02 - HYPOXEMIA (2) PNA (pneumonia) Assessment/Plan: on iv abx Code(s): J18.9 - PNEUMONIA, UNSPECIFIED ORGANISM Qualifiers: Pneumonia type: due to unspecified organism Laterality: left Lung location: lower lobe of lung Qualified Code(s): J18.1 - Lobar pneumonia, unspecified organism; J18.1 - Lobar pneumonia, unspecified organism; J18.1 - Lobar pneumonia, unspecified organism (3) UTI (urinary tract infection) Assessment/Plan: pending Code(s): N39.0 - URINARY TRACT INFECTION, SITE NOT SPECIFIED Qualifiers: Urinary tract infection type: site unspecified Hematuria presence: without hematuria Qualified Code(s): N39.0 - Urinary tract infection, site not specified; N39.0 - Urinary tract infection, site not specified; R31.9 - Hematuria, unspecified; R31.9 - Hematuria, unspecified Assessment/Plan
[2016-12-15] MEDS: MONTELUKAST NA 10 MG TABLET PO SCH (21:39)
[2016-12-15] MEDS: NICOTINE 21 MG/24 HOURS TOPICAL PATCH TD SCH (21:40)
[2016-12-16] MEDS: PIPERACILLIN/TAZOB 3.375 GM 50 ML IVPB SCH ×3 (02:38→17:26)
[2016-12-16] MEDS: ALBUTEROL SO4 0.083% IH SOL 2.5 MG/3 ML VIAL.NEB. NEB SCH ×2 (06:05→14:01)
[2016-12-16 08:51] LABS: FREE T4 1.34 ng/dl (0.76-1.46); THYROID STIMULATING HORMONE 1.06 uIU/ml (0.358-3.74)
[2016-12-16] MEDS ORDERED: PT OWN MED DRAWER 7, Y5N ONE (09:39)
[2016-12-16] MEDS: ROFLUMILAST 500 MCG TABLET PO SCH (09:44)
[2016-12-16] MEDS: RAMIPRIL 2.5 MG CAPSULE (FP) PO SCH (09:44)
[2016-12-16] MEDS: ESCITALOPRAM OXALATE 10 MG TABLET (FP) PO SCH (09:44)
[2016-12-16] MEDS: TIOTROPIUM BROMIDE 18 MCG/INH (DEVICE W/ 5 CAPSULES) IH SCH (09:44)
[2016-12-16] MEDS: MULTIVITAMINS (DAILY MVI) TABLET (FP) PO SCH (09:44)
[2016-12-16] MEDS: HYDROCHLOROTHIAZIDE 12.5 MG CAPSULE (FP) PO SCH (09:45)
[2016-12-16] MEDS: BUDESONIDE/FORMETEROL FUMARATE 160/4.5 mcg INHALER IH SCH (09:46)
[2016-12-16] MEDS: NICOTINE 21 MG/24 HOURS TOPICAL PATCH TD SCH (09:46)
[2016-12-16] MEDS: ASPIRIN 81 MG CHEWABLE TABLETS PO SCH (09:46)
[2016-12-16] MEDS: POLYETHYLENE GLYCOL 3350 119 GM BTL PO SCH (09:47)
[2016-12-16] MEDS: AZITHROMYCIN IVPB 500 MG in DEXTROSE 5%-WATER - 250 ML IVPB SCH (10:54)
--- NOTE | 2016-12-16 13:02 | PN ---
Progress Note, Physician History of Present Illness: pulmonary alert,oob-chair comfortable,-resp distress - Current Medication List Current Medications: Active Medications Acetaminophen (Tylenol -) 650 mg PO Q6H PRN PRN Reason: FEVER OR PAIN Albuterol Sulfate (Ventolin 0.083% Nebulizer Soln -) 1 amp NEB TIDR [facility] Last Admin: 12/16/16 06:05 Dose: Not Given Aspirin (Asa -) 81 mg PO DAILY [facility] Last Admin: 12/16/16 09:46 Dose: 81 mg Budesonide/Formoterol Fumarate (Symbicort 160/4.5mcg -) 1 puff IH BID [facility] Last Admin: 12/16/16 09:46 Dose: 1 puff Escitalopram Oxalate (Lexapro -) 15 mg PO DAILY [facility] Last Admin: 12/16/16 09:44 Dose: 15 mg Hydrochlorothiazide (Hctz -) 12.5 mg PO BID [facility] Last Admin: 12/16/16 09:45 Dose: 12.5 mg Azithromycin 500 mg/ Dextrose 250 mls @ 250 mls/hr IVPB DAILY [facility] Last Admin: 12/16/16 10:54 Dose: 250 mls/hr Piperacillin/Tazobactam/Dextrose (Zosyn 3.375gm Ivpb (Premix)) 50 mls @ 100 mls /hr IVPB Q8H-IV [facility] PRN Reason: Protocol Last Admin: 12/16/16 09:46 Dose: 100 mls/hr Montelukast Sodium (Singulair -) 10 mg PO HS [facility] Last Admin: 12/15/16 21:39 Dose: 10 mg Multivitamins/Minerals/Vitamin C (Tab-A-Vit -) 1 tab PO DAILY [facility] Last Admin: 12/16/16 09:44 Dose: 1 tab Nicotine (Nicoderm Patch -) 21 mg TD DAILY [facility] Last Admin: 12/16/16 09:46 Dose: 21 mg Pt's Own Med ( Albuterol Sulfate [ Proair Respiclick] 90 Mcg) 90 mcg IH Q4H PRN Last Admin: 12/14/16 08:23 Dose: 90 mcg Polyethylene Glycol (Miralax (For Daily Use) -) 17 gm PO DAILY [facility] Last Admin: 12/16/16 09:47 Dose: Not Given Ramipril (Altace -) 2.5 mg PO DAILY [facility] Last Admin: 12/16/16 09:44 Dose: 2.5 mg Roflumilast (Daliresp -) 500 mcg PO DAILY [facility] Last Admin: 12/16/16 09:44 Dose: 500 mcg Tiotropium [place] [employer] (Spiriva -) 1 puff IH DAILY [facility] Last Admin: 12/16/16 09:44 Dose: 1 puff - Objective Vital Signs: Vital Signs Temperature 97.5 F L 12/16/16 08:00 Pulse Rate 90 12/16/16 08:00 Respiratory Rate 20 12/16/16 08:00 Blood Pressure 106/45 12/16/16 08:00 O2 Sat by Pulse Oximetry (%) 96 12/16/16 09:00 Constitutional: Yes: Calm, Thin Eyes: Yes: WNL HENT: Yes: WNL Neck: Yes: WNL Cardiovascular: Yes: Regular Rate and Rhythm, S1, S2 Respiratory: Yes: Diminished Gastrointestinal: Yes: Normal Bowel Sounds, Soft Extremities: Yes: WNL Edema: No Labs: CBC, BMP - ....Imaging Cat Scan: Report Reviewed, Image Reviewed Assessment/Plan A/E COPD LEFT LOWEWR LOBE INFILTRATE CHRONIC O2 USE ACTIVE SMOKER LLL ATELECTASIS ICS/LABA/ISAAC/LAMA/ANTIBIOTICS/O2/DALIRESP F/U CT CHEST OUTPATIENT DR MONGE Problem List - Problems (1) Hypoxia Code(s): R09.02 - HYPOXEMIA (2) PNA (pneumonia) Code(s): J18.9 - PNEUMONIA, UNSPECIFIED ORGANISM Qualifiers: Pneumonia type: due to unspecified organism Laterality: left Lung location: lower lobe of lung Qualified Code(s): J18.1 - Lobar pneumonia, unspecified organism; J18.1 - Lobar pneumonia, unspecified organism; J18.1 - Lobar pneumonia, unspecified organism (3) UTI (urinary tract infection) Code(s): N39.0 - URINARY TRACT INFECTION, SITE NOT SPECIFIED Qualifiers: Urinary tract infection type: site unspecified Hematuria presence: without hematuria Qualified Code(s): N39.0 - Urinary tract infection, site not specified; N39.0 - Urinary tract infection, site not specified; R31.9 - Hematuria, unspecified; R31.9 - Hematuria, unspecified
--- NOTE | 2016-12-16 15:56 | PN ---
Progress Note, Physician History of Present Illness: starting to feel much better doing well daughter in the room - Current Medication List Current Medications: Active Medications Acetaminophen (Tylenol -) 650 mg PO Q6H PRN PRN Reason: FEVER OR PAIN Albuterol Sulfate (Ventolin 0.083% Nebulizer Soln -) 1 amp NEB TIDR [facility] Last Admin: 12/16/16 14:01 Dose: Not Given Aspirin (Asa -) 81 mg PO DAILY [facility] Last Admin: 12/16/16 09:46 Dose: 81 mg Budesonide/Formoterol Fumarate (Symbicort 160/4.5mcg -) 1 puff IH BID [facility] Last Admin: 12/16/16 09:46 Dose: 1 puff Escitalopram Oxalate (Lexapro -) 15 mg PO DAILY [facility] Last Admin: 12/16/16 09:44 Dose: 15 mg Hydrochlorothiazide (Hctz -) 12.5 mg PO BID [facility] Last Admin: 12/16/16 09:45 Dose: 12.5 mg Azithromycin 500 mg/ Dextrose 250 mls @ 250 mls/hr IVPB DAILY [facility] Last Admin: 12/16/16 10:54 Dose: 250 mls/hr Piperacillin/Tazobactam/Dextrose (Zosyn 3.375gm Ivpb (Premix)) 50 mls @ 100 mls /hr IVPB Q8H-IV [facility] PRN Reason: Protocol Last Admin: 12/16/16 09:46 Dose: 100 mls/hr Montelukast Sodium (Singulair -) 10 mg PO HS [facility] Last Admin: 12/15/16 21:39 Dose: 10 mg Multivitamins/Minerals/Vitamin C (Tab-A-Vit -) 1 tab PO DAILY [facility] Last Admin: 12/16/16 09:44 Dose: 1 tab Nicotine (Nicoderm Patch -) 21 mg TD DAILY [facility] Last Admin: 12/16/16 09:46 Dose: 21 mg Pt's Own Med ( Albuterol Sulfate [ Proair Respiclick] 90 Mcg) 90 mcg IH Q4H PRN Last Admin: 12/14/16 08:23 Dose: 90 mcg Polyethylene Glycol (Miralax (For Daily Use) -) 17 gm PO DAILY [facility] Last Admin: 12/16/16 09:47 Dose: Not Given Ramipril (Altace -) 2.5 mg PO DAILY [facility] Last Admin: 12/16/16 09:44 Dose: 2.5 mg Roflumilast (Daliresp -) 500 mcg PO DAILY [facility] Last Admin: 12/16/16 09:44 Dose: 500 mcg Tiotropium [place] (Spiriva -) 1 puff IH DAILY [facility] Last Admin: 12/16/16 09:44 Dose: 1 puff - Objective Vital Signs: Vital Signs Temperature 97.5 F L 12/16/16 08:00 Pulse Rate 90 12/16/16 08:00 Respiratory Rate 20 12/16/16 08:00 Blood Pressure 106/45 12/16/16 08:00 O2 Sat by Pulse Oximetry (%) 96 12/16/16 09:00 Constitutional: Yes: No Distress, Calm, Thin Cardiovascular: Yes: Regular Rate and Rhythm Respiratory: Yes: Regular, CTA Bilaterally Gastrointestinal: Yes: Normal Bowel Sounds, Soft Musculoskeletal: Yes: WNL Extremities: Yes: WNL Neurological: Yes: Alert, Oriented Psychiatric: Yes: Alert, Oriented Labs: CBC, BMP 12/14/16 05:40 12/14/16 05:40 Assessment/Plan Problem List - Problems (1) Hypoxia Code(s): R09.02 - HYPOXEMIA (2) PNA (pneumonia) Code(s): J18.9 - PNEUMONIA, UNSPECIFIED ORGANISM Qualifiers: Pneumonia type: due to unspecified organism Laterality: left Lung location: lower lobe of lung Qualified Code(s): J18.1 - Lobar pneumonia, unspecified organism; J18.1 - Lobar pneumonia, unspecified organism; J18.1 - Lobar pneumonia, unspecified organism (3) UTI (urinary tract infection) Code(s): N39.0 - URINARY TRACT INFECTION, SITE NOT SPECIFIED Qualifiers: Urinary tract infection type: site unspecified Hematuria presence: without hematuria Qualified Code(s): N39.0 - Urinary tract infection, site not specified; N39.0 - Urinary tract infection, site not specified; R31.9 - Hematuria, unspecified; R31.9 - Hematuria, unspecified plan continue abx sputum cx noted can switch to oral augmentin 875 mg twice a day for 7 more days on discharge continue incentive rosina rest as per primary
[2016-12-16 16:12] VITALS: BP 100/60; TEMP 97.9
--- NOTE | 2016-12-16 16:33 | DS ---
Physical Examination Vital Signs: Vital Signs Temperature 97.9 F 12/16/16 16:11 Pulse Rate 83 12/16/16 16:11 Respiratory Rate 20 12/16/16 16:11 Blood Pressure 100/60 12/16/16 16:11 O2 Sat by Pulse Oximetry (%) 96 12/16/16 09:00 Constitutional: Yes: Calm HENT: Yes: Atraumatic Neck: Yes: Supple Cardiovascular: Yes: Regular Rate and Rhythm Respiratory: Yes: CTA Bilaterally Gastrointestinal: Yes: Normal Bowel Sounds Extremities: Yes: WNL Neurological: Yes: Alert, Oriented Labs: CBC, BMP 12/14/16 05:40 12/14/16 05:40 Discharge Summary Reason For Visit: HYPOXIA,PNUMONIA Current Active Problems Hypoxia (Acute) PNA (pneumonia) (Acute) UTI (urinary tract infection) (Acute) - Instructions Diet, Activity, Other Instructions: follow up pmd/ pulmonary 1 week Referrals: Bunny Bartholomew MD [Staff Physician] - Jay Salcedo [Primary Care Provider] - - Home Medications Comprehensive Discharge Medication List: Ambulatory Orders Albuterol Sulfate [Proair Respiclick] 90 mcg IH BID 12/13/16 Aspirin [ASA -] 81 mg PO DAILY 12/13/16 Budesonide/Formeterol Fumarate [SYMBICORT 160/4.5mcg -] 1 inh PO BID 12/13/16 Calcium Carbonate/Vitamin D3 [Calcium 500-Vit D3 600 Tablet] 1 each PO DAILY Escitalopram Oxalate [Lexapro -] 15 mg PO DAILY 12/13/16 Hydrochlorothiazide [Hctz -] 12.5 mg PO BID 12/13/16 Magnesium 1 tab PO DAILY 12/13/16 Montelukast Na [Singulair -] 10 mg PO DAILY 12/13/16 Multivit-Min/Iron Fum/Folic AC [Xnmyt-Hvstmca-Nxwwvrxw Tablet] 1 tab PO DAILY Ramipril 2.5 mg PO DAILY 12/14/16 Amoxicillin/Potassium Clav [Augmentin 875-125 Tablet] 1 each PO BID #14 tablet 12/16/16 dc home pt is on home O2 copd/emphysema wants togo home abx ordered family will bring oxygen tank for transportation
[2016-12-16 18:43] VITALS: PULSE 79
== END 2016-12-16 19:54 | disposition home or self-care (01) | DRG 190 ==
LOC: JER 10:31 → JERBED 13:13 → J6S 19:25
PROVIDERS: ADMIT Internal Medicine; ATTEND Internal Medicine
DX: J44.0 Chronic obstructive pulmonary disease with (acute) lower respiratory infection (principal); J18.9 Pneumonia, unspecified organism; N39.0 Urinary tract infection, site not specified; J98.11 Atelectasis; J44.1 Chronic obstructive pulmonary disease with (acute) exacerbation; R09.02 Hypoxemia; F17.210 Nicotine dependence, cigarettes, uncomplicated; I10 Essential (primary) hypertension; E78.5 Hyperlipidemia, unspecified; R06.02 Shortness of breath
CPT/HCPCS: 36415; 71020-TC; 71250-TC; 80053; 81003; 81015; 82550; 82803; 83036; 83880; 84439; 84443; 84481; 84484; 85025; 85027; 87070; 87077; 87086; 87205; 93005; 93010; 93306-TC; 94010; 94640; 94761; 99284-25

== ENCOUNTER 2017-07-07 11:56 | Inpatient (IN) | payer OTHER ==
--- NOTE | 2017-07-07 12:41 | PDOC ---
History of Present Illness - General History Source: Patient Exam Limitations: No Limitations - History of Present Illness Initial Comments: 07/07/17 13:22 The patient is an 82 year old female with a significant PMH of emphysema (on 3L home O2 nightly), HTN, hyperlipidemia, and chronic UTIs who presents to the emergency department with shortness of breath and palpitations begin with associated palpitations over baseline this morning and checked her finger SPO2 and found it to be lower than usual. She reports checking her O2 sat because of her symptoms and at the request of her daughter who has directed her to intermittently check her levels. The patient reports calling her daughter who prompted her to go to the ER. At presentation, the patients O2 sat was 79 on room air. The patient notes she uses her home O2 primarily at night and as needed during the day. She also notes some RLE swelling and intermittent cough. The patient denies chest pain, headache and dizziness. Denies fever, chills, nausea, vomit, diarrhea and constipation. Denies dysuria, frequency, urgency and hematuria. Allergies: NKA Past surgical history: Urinary tract surgery. Social history: Current everyday smoker. No reported alcohol or drug use. PCP: Dr. Rodney Pulmonology: Dr. Bartholomew <Ranulfo Mancini - Last Filed: 07/07/17 15:43> - General History Source: Patient Exam Limitations: No Limitations <Bessie Porter - Last Filed: 07/07/17 18:32> - General Stated Complaint: WEAKNESS Time Seen by Provider: 07/07/17 12:35 Past History <Ranulfo Mancini - Last Filed: 07/07/17 15:43> - Past Medical History Cancer: Yes (cervical 1973) COPD: Yes (emphysema) HTN: Yes - Surgical History Abdominal Surgery: (urinary track sx) - Suicide/Smoking/Psychosocial Hx Smoking History: Current every day smoker Number of Cigarettes Smoked Daily: 5 'Breaking Loose' booklet given: 12/13/16 Hx Alcohol Use: No Drug/Substance Use Hx: No Substance Use Type: None <Bessie Porter - Last Filed: 07/07/17 18:32> - Past Medical History Allergies/Adverse Reactions: Allergies Allergy/AdvReac Type Severity Reaction Status Date / Time levofloxacin [From Levaquin] Allergy Verified 12/13/16 10:45 prednisone AdvReac Verified 12/13/16 10:45 Home Medications: Ambulatory Orders Albuterol Sulfate [Proair Respiclick] 90 mcg IH BID 12/13/16 Aspirin [ASA -] 81 mg PO Q2D 12/13/16 Budesonide/Formeterol Fumarate [SYMBICORT 160/4.5mcg -] 1 inh PO BID 12/13/16 Calcium Carbonate/Vitamin D3 [Calcium 500-Vit D3 600 Tablet] 1 each PO DAILY Escitalopram Oxalate [Lexapro -] 15 mg PO DAILY 12/13/16 Hydrochlorothiazide [Hctz -] 12.5 mg PO BID 12/13/16 Magnesium 1 tab PO TID 12/13/16 Montelukast Na [Singulair -] 10 mg PO DAILY 12/13/16 Multivit-Min/Iron Fum/Folic AC [Mkupn-Xstiyle-Drgvfwjx Tablet] 1 tab PO DAILY Ramipril 2.5 mg PO DAILY 12/14/16 Nicotine Patch [Nicoderm Patch -] 21 mg TD DAILY #14 patch 12/16/16 Roflumilast [Daliresp -] 500 mcg PO DAILY #30 tablet 12/16/16 Tiotropium [place] [Spiriva] 1 inh IH DAILY #1 inh 12/16/16 Roflumilast [Daliresp] 500 mcg PO DAILY 07/07/17 Tiotropium [place] [Spiriva] 1 inh IH DAILY 07/07/17 Review of Systems - Review of Systems Able to Perform ROS?: Yes Comments:: 07/07/17 13:23 GENERAL/CONSTITUTIONAL: No fever or chills. No weakness. HEAD, EYES, EARS, NOSE AND THROAT: No change in vision. No ear pain or discharge. No sore throat. CARDIOVASCULAR: (+) Palpitations. No chest pain or shortness of breath. RESPIRATORY: (+) Shortness of breath. No wheezing or hemoptysis. GASTROINTESTINAL: No nausea, vomiting, diarrhea or constipation. GENITOURINARY: No dysuria, frequency, or change in urination. MUSCULOSKELETAL: No joint or muscle swelling or pain. No neck or back pain. SKIN: No rash NEUROLOGIC: No headache, vertigo, loss of consciousness, or change in strength/ sensation. ENDOCRINE: No increased thirst. No abnormal weight change. HEMATOLOGIC/LYMPHATIC: No anemia, easy bleeding, or history of blood clots. ALLERGIC/IMMUNOLOGIC: No hives or skin allergy. <Ranulfo Mancini - Last Filed: 07/07/17 15:43> *Physical Exam - Vital Signs Last Vital Signs Temp Pulse Resp BP Pulse Ox 98.0 F 91 H 18 156/94 79 L 07/07/17 11:56 07/07/17 11:56 07/07/17 11:56 07/07/17 11:56 07/07/17 11:56 - Physical Exam Comments: 07/07/17 14:22 GENERAL: (+) Cachectic. Awake, alert, in no acute distress HEAD: No signs of trauma EYES: PERRLA, EOMI, sclera anicteric, conjunctiva clear ENT: Auricles normal inspection, hearing grossly normal, nares patent, oropharynx clear without exudates. Moist mucosa NECK: Normal ROM, supple, no lymphadenopathy, JVD, or masses LUNGS: Breath sounds equal, clear to auscultation bilaterally. No wheezes, and no crackles HEART: (+) Tachycardia. Regular rhythm, normal S1 and S2, no murmurs, rubs or gallops ABDOMEN: Soft, nontender, normoactive bowel sounds. No guarding, no rebound. No masses EXTREMITIES: (+) RLE edema. Normal range of motion. No clubbing or cyanosis. No cords, erythema, or tenderness NEUROLOGICAL: Cranial nerves II through XII grossly intact. Normal speech. SKIN: Warm, Dry, normal turgor, no rashes or lesions noted. <Ranulfo Mancini - Last Filed: 07/07/17 15:43> ED Treatment Course - LABORATORY CBC & Chemistry Diagram: 07/07/17 12:44 07/07/17 12:44 <Ranulfo Mancini - Last Filed: 07/07/17 15:43> - LABORATORY CBC & Chemistry Diagram: 07/07/17 12:44 07/07/17 12:44 <Bessie Porter - Last Filed: 07/07/17 18:32> Medical Decision Making - Medical Decision Making 07/07/17 14:14 Ms Casillas is an 82-year-old female presents emergency department with a complaint of palpitations, generalized weakness. She has a history of COPD, uses O2 at night, history of hypertension. Patient states she was in her usual state of health. She felt somehow palpitations today, generalized weakness, and a feeling that she needed to check her pulse ox. When she did so, she noted that her pulse oximetry was low She denies chest pain She does report having an intermittent cough Exam: Pt is cachectic tachycardia, no murmur Lungs are clear to auscultation No abd tenderness RLE edema DD: Arrhythmia, PE, hyperthyroidism, dehydration Will do: Labs, CT, IV hydration Duplex Laboratory Tests 07/07/17 07/07/17 07/07/17 12:44 12:44 12:44 WBC 7.9 Hgb 13.0 Hct 39.2 Plt Count 248 INR 1.06 Sodium 131 L Potassium 4.1 Chloride 87 L Carbon Dioxide 36 H Anion Gap 8 BUN 9 Creatinine 0.5 L Random Glucose 83 Creatine Kinase 49 Troponin I < 0.02 B-Natriuretic Peptide 667.35 H TSH 07/07/17 13:29 WBC Hgb Hct Plt Count INR Sodium Potassium Chloride Carbon Dioxide Anion Gap BUN Creatinine Random Glucose Creatine Kinase Troponin I B-Natriuretic Peptide TSH 0.60 07/07/17 18:31 CTA negative for PE Will place on telemetry No wheezing noted, pt will not be given nebs (also, HR is elevated) Clinical impression: palpitations, initial presentation Severe COPD, initial presentation <Bessie Porter - Last Filed: 07/07/17 18:32> *DC/Admit/Observation/Transfer - Attestations Scribe Attestion: 07/07/17 13:23 Documentation prepared by Ranulfo Mancini, acting as medical cash poster for Bessie Porter MD. <Ranulfo Mancini - Last Filed: 07/07/17 15:43> - Discharge Dispostion Decision to Admit order: Yes <Bessie Porter - Last Filed: 07/07/17 18:32> Diagnosis at time of Disposition: Palpitations COPD (chronic obstructive pulmonary disease) Qualifiers: COPD type: unspecified COPD Qualified Code(s): J44.9 - Chronic obstructive pulmonary disease, unspecified - Discharge Dispostion Condition at time of disposition: Stable
[2017-07-07] MEDS ORDERED: SODIUM CHLORIDE 1,000 ML IV STA (13:04)
[2017-07-07 13:33] LABS: BASO % 0.2 % (0-2.0); EOS % 2.1 % (0-4.5); HEMATOCRIT 39.2 % (32.4-45.2); LYMPH % 22.2 % (8-40); MCH 29.5 pg (25.7-33.7); MCHC 33.3 g/dl (32.0-36.0); MEAN CELL VOLUME 88.5 fl (80-96); MEAN PLT VOLUME 6.3 fl (7.5-11.1); MONO % 7.7 % (3.8-10.2); NEUT % 67.8 % (42.8-82.8); PLATELET COUNT 248 K/MM3 (134-434); RBC 4.43 M/mm3 (3.60-5.2); RDW 13.9 % (11.6-15.6); WHITE BLOOD COUNT 7.9 K/mm3 (4.0-10.0)
[2017-07-07 13:53] LABS: INR 1.06 (0.82-1.09)
[2017-07-07 14:00] LABS: ALBUMIN 3.6 g/dl (3.4-5.0); ANION GAP 8 (8-16); BILIRUBIN,TOTAL 0.6 mg/dL (0.2-1.0); BLOOD UREA NITROGEN 9 mg/dL (7-18); CHLORIDE 87 mmol/L (98-107); CO2 36 mmol/L (21-32); CREATININE 0.5 mg/dL (0.55-1.02); GLUCOSE,RANDOM 83 mg/dL (74-106); POTASSIUM 4.1 mmol/L (3.5-5.1); SGOT/AST 22 U/L (15-37); SGPT/ALT 21 U/L (12-78); SODIUM 131 mmol/L (136-145); TOT PROT 7.3 g/dl (6.4-8.2)
[2017-07-07 14:02] LABS: ALK PHOS 55 U/L (45-117); N-TERMINAL BNP 667.35 pg/ml (5-450)
--- NOTE | 2017-07-07 14:02 | EKG ---
Test Reason : Blood Pressure : / mmHG Vent. Rate : 095 BPM Atrial Rate : 095 BPM P-R Int : 160 ms QRS Dur : 072 ms QT Int : 346 ms P-R-T Axes : 073 093 072 degrees QTc Int : 434 ms POOR DATA QUALITY, INTERPRETATION MAY BE ADVERSELY AFFECTED NORMAL SINUS RHYTHM WITH SINUS ARRHYTHMIA POSSIBLE LEFT ATRIAL ENLARGEMENT RIGHTWARD AXIS T WAVE ABNORMALITY, CONSIDER ANTERIOR ISCHEMIA ABNORMAL ECG WHEN COMPARED WITH ECG OF 13-DEC-2016 11:26, NO SIGNIFICANT CHANGE WAS FOUND Confirmed by JUAN DO MD ([id number]) on 07/07/2017 2:01:47 PM Referred By: Confirmed By:JUAN DO MD
--- NOTE | 2017-07-07 18:06 | HP ---
CHIEF COMPLAINT: shortness of breath, palpitations, generalized weakness PCP: Dr. Rodney, PCP Dr. Gillis, pulmonary Dr. Mack, cardiology HISTORY OF PRESENT ILLNESS: Patient is an 82 year old female with a significant past medical history of COPD , emphysema (home oxygen dependent), bronchitis, chronic UTIs, hysterectomy, cataract surgery, ureteral repair, mild cognitive impairment, hypertension, orthostatic hypotension and hyperlipidemia. Patient presents to the ED today with c/o of shortness of breath and palpitations that started earlier this morning. Patient is home oxygen dependent and wears 3 liters of nasal cannula at night and as needed during the day. In the ED her oxygen saturation on room air was noted to be 79% and she was placed on 3 liters of nasal cannula. A vascular study is negative for a DVT. Chest CTA negative for PE but findings consistent with emphysema, chronic bronchitis and bilateral hydronephrosis. EKG shows sinus rhythm with sinus arrhythmias. On exam patient appears to have shortness of breath at rest. She denies chest pain, denies nausea or vomiting. Upon auscultation, her heart rate is noted to be irregular, lungs diminished but without wheezing. ER course was notable for: (1) CT/Chest CTA - No evidence of PE, centribular empysema which is at least moderate, chronic bronchitis. Kidneys with bilateral hydronephrosis. Partial imaging of a 0.9x0.2cm left renal cortical focus is seen possibly representing a non obstructing calculus (versus contrast material) abd/pelvis CT eval suggested (2) BNP 667, NA 131, Chl 87, carbon dx 36 (3) EKG sinus rhythm with sinus arrhythmias. (4) hyponatremia Recent Travel: n/a PAST MEDICAL HISTORY: emphysema (home oxygen dependent), bronchitis, chronic UTIs, hypertension and hyperlipidemia. PAST SURGICAL HISTORY: Social History: Smoking: remotely in the past, former smoker from 19 years of age and just quit recently Alcohol: none Drugs: none Family History: Mother at 93 of natural causes, father diet at 70 from heart disease Allergies levofloxacin [From Levaquin] Allergy (Verified 12/13/16 10:45) prednisone Adverse Reaction (Verified 12/13/16 10:45) panic attack HOME MEDICATIONS: Home Medications Medication Instructions Recorded Albuterol Sulfate [Proair 90 mcg IH BID 12/13/16 Respiclick] Aspirin [ASA -] 81 mg PO Q2D 12/13/16 Budesonide/Formeterol Fumarate 1 inh PO BID 12/13/16 [SYMBICORT 160/4.5mcg -] Calcium Carbonate/Vitamin D3 1 each PO DAILY 12/13/16 [Calcium 500-Vit D3 600 Tablet] Escitalopram Oxalate [Lexapro -] 15 mg PO DAILY 12/13/16 Hydrochlorothiazide [Hctz -] 12.5 mg PO BID 12/13/16 Magnesium 1 tab PO TID 12/13/16 Montelukast Na [Singulair -] 10 mg PO DAILY 12/13/16 Multivit-Min/Iron Fum/Folic AC 1 tab PO DAILY 12/13/16 [Iqmlb-Kzhdfja-Rsbgejcl Tablet] Ramipril 2.5 mg PO DAILY 12/14/16 Nicotine Patch [Nicoderm Patch -] 21 mg TD DAILY #14 patch 12/16/16 Roflumilast [Daliresp -] 500 mcg PO DAILY #30 tablet 12/16/16 Tiotropium [place] [Spiriva] 1 inh IH DAILY #1 inh 12/16/16 Roflumilast [Daliresp] 500 mcg PO DAILY 07/07/17 Tiotropium [place] [Spiriva] 1 inh IH DAILY 07/07/17 PHYSICAL EXAMINATION Vital Signs - 24 hr 07/07/17 11:56 Temperature 98.0 F Pulse Rate 91 H Respiratory 18 Rate Blood Pressure 156/94 O2 Sat by Pulse 79 L Oximetry (%) GENERAL: Awake, alert, and fully oriented, in no acute distress. HEAD: Normal with no signs of trauma. EYES: Pupils equal, round and reactive to light, extraocular movements intact, sclera anicteric, conjunctiva clear. No lid lag. EARS, NOSE, THROAT: Ears normal, nares patent, oropharynx clear without exudates. Moist mucous membranes. NECK: Normal range of motion, supple without lymphadenopathy, JVD, or masses. LUNGS: Breath sounds equal, clear to auscultation bilaterally. No wheezes, and no crackles. No accessory muscle use. HEART: Regular rate and rhythm, normal S1 and S2 without murmur, rub or gallop. ABDOMEN: Soft, nontender, not distended, normoactive bowel sounds, no guarding, no rebound, no masses. No hepatomegaly or splenomegaly. MUSCULOSKELETAL: Normal range of motion at all joints. No bony deformities or tenderness. No CVA tenderness. UPPER EXTREMITIES: 2+ pulses, warm, well-perfused. No cyanosis. No clubbing. No peripheral edema. LOWER EXTREMITIES:RLE non pitting edema NEUROLOGICAL: Cranial nerves II-XII intact. Normal speech. Normal gait. PSYCHIATRIC: Cooperative. Good eye contact. Appropriate mood and affect. SKIN: Warm, dry, normal turgor, no rashes or lesions noted, normal capillary refill. Laboratory Results - last 24 hr 07/07/17 07/07/17 07/07/17 12:44 12:44 12:44 WBC 7.9 RBC 4.43 Hgb 13.0 Hct 39.2 MCV 88.5 MCH 29.5 MCHC 33.3 RDW 13.9 Plt Count 248 MPV 6.3 L Neutrophils % 67.8 Lymphocytes % 22.2 Monocytes % 7.7 Eosinophils % 2.1 Basophils % 0.2 PT with INR 12.00 INR 1.06 Sodium 131 L Potassium 4.1 Chloride 87 L Carbon Dioxide 36 H Anion Gap 8 BUN 9 Creatinine 0.5 L Creat Clearance w eGFR > 60 Random Glucose 83 Calcium 9.0 Total Bilirubin 0.6 AST 22 ALT 21 Alkaline Phosphatase 55 Creatine Kinase 49 Troponin I < 0.02 B-Natriuretic Peptide 667.35 H Total Protein 7.3 Albumin 3.6 TSH 07/07/17 13:29 WBC RBC Hgb Hct MCV MCH MCHC RDW Plt Count MPV Neutrophils % Lymphocytes % Monocytes % Eosinophils % Basophils % PT with INR INR Sodium Potassium Chloride Carbon Dioxide Anion Gap BUN Creatinine Creat Clearance w eGFR Random Glucose Calcium Total Bilirubin AST ALT Alkaline Phosphatase Creatine Kinase Troponin I B-Natriuretic Peptide Total Protein Albumin TSH 0.60 ASSESSMENT/PLAN: Patient is an 82 year old female with a significant past medical history of COPD , emphysema (home oxygen dependent), bronchitis, chronic UTIs, hysterectomy, cataract surgery, ureteral repair, mild cognitive impairment, hypertension, orthostatic hypotension and hyperlipidemia. Patient presents to the ED today with c/o of shortness of breath and palpitations that started earlier this morning. Patient is home oxygen dependent and wears 3 liters of nasal cannula at night and as needed during the day. In the ED her oxygen saturation on room air was noted to be 79% and she was placed on 3 liters of nasal cannula. A vascular study is negative for a DVT. Chest CTA negative for PE but findings consistent with emphysema, chronic bronchitis and bilateral hydronephrosis. EKG shows sinus rhythm with sinus arrhythmias. On exam patient appears to have shortness of breath at rest. She denies chest pain, denies nausea or vomiting. Upon auscultation, her heart rate is noted to be irregular, lungs diminished but without wheezing. Imaging: CT/Chest CTA - No evidence of PE, centribular empysema which is at least moderate, chronic bronchitis. Kidneys with bilateral hydronephrosis. Partial imaging of a 0.9x0.2cm left renal cortical focus is seen possibly representing a non obstructing calculus (versus contrast material) abd/pelvis CT eval suggested Pulm: Hypoxia, COPD exacerbation Home oxygen dependent Hx of COPD, former smoker Negative for DVT, Negative for PE per CTA Albuterol prn No wheezing, but has dyspnea at rest Maintain oxygen above 90%, continuous pulse ox Pulmonary consulted CV: Cardiac arrythmia EKG shows sinus rhythm with sinus arrhythmia Noted to have irregular heart rate Monitor on tele Rule out ACS Trend troponins Echo ordered Cardiology consulted Hypertension, chronic on HCTZ Renal: Kidneys with bilateral hydronephrosis per CTA Monitor intake and output Consider renal consult Muscular/skeletal: Cachexia, chronic BMI 15 Presents as thin and frail, appears dehydrated Hyponatremia Monitor intake and output Gently hydrate overnight RD consult for dietary needs Monitor electrolytes F.E.N. Fluids: NS @ 50cc/hr Electrolytes: monitor Nutrition; low salt Prophy: DVT: SCDs GI: deferred. Disposition: full code Visit type - Emergency Visit Emergency Visit: Yes ED Registration Date: 07/07/17 Care time: The patient presented to the Emergency Department on the above date and was hospitalized for further evaluation of their emergent condition. - New Patient This patient is new to me today: Yes Date on this admission: 07/07/17 - Critical Care Critical Care patient: No Hospitalist Screening - Colonoscopy Questionnaire Colonoscopy Questionnaire: Colonoscopy Questionnaire - Patient: 50 - 75 years old and never had a screening colonoscopy: Unknown History of colon or rectal polyps, or CA: Unknown History of IBD, Crohn's disease or UC: Unknown History of abdominal radiation therapy as a child: Unknown - Relative: 1 with colon or rectal CA, or polyps at age 60 or younger: Unknown Colon or rectal CA diagnosed at age 45 or younger: Unknown Multiple relatives with colon or rectal CA: Unknown - Outcome: Screening Result: Negative Screen
[2017-07-07] MEDS ORDERED: SODIUM CHLORIDE FOR INHALATION 3 ML VIAL.NEB IH PRN (19:15)
[2017-07-07 21:29] VITALS: BMI 15.5
[2017-07-07] MEDS ORDERED: HYDROCHLOROTHIAZIDE 12.5 MG CAPSULE (FP) PO SCH (22:00)
[2017-07-07] MEDS ORDERED: SODIUM CHLORIDE 1,000 ML IV SCH (22:00)
[2017-07-07] MEDS: ATORVASTATIN CA 20 MG TABLET (FP) PO SCH (22:13)
[2017-07-07] MEDS: MONTELUKAST NA 10 MG TABLET PO SCH (23:22)
[2017-07-07] MEDS: BUDESONIDE/FORMETEROL FUMARATE 160/4.5 mcg INHALER IH SCH (23:22)
[2017-07-07] MEDS: TIOTROPIUM BROMIDE 18 MCG CAPSULES IH SCH (23:46)
[2017-07-07 23:51] LABS: URINE APPEARANCE SLCLOUDY; URINE BILIRUBIN NEGATIVE (<2.0 mg/dL); URINE BLOOD NEGATIVE (NEGATIVE); URINE COLOR LTYELLOW; URINE GLUCOSE (UA) NEGATIVE (NEGATIVE); URINE KETONE TRACE (NEGATIVE); URINE NITRITE NEGATIVE (NEGATIVE); URINE PROTEIN NEGATIVE (NEGATIVE); URINE UROBILINOGEN NEGATIVE mg/dL (0.2-1.0)
[2017-07-07 23:53] LABS: URINE LEUK ESTERASE 3+ (NEGATIVE)
[2017-07-07 23:54] LABS: EPI CELLS RARE /HPF (FEW); URINE MUCUS RARE
[2017-07-08] MEDS: ALBUTEROL SO4 2.5/IPRATROPIUM 0.5 INH SOL 3 ML VIAL.NEB. NEB PRN (07:57)
[2017-07-08 09:43] LABS: BASO % 0.6 % (0-2.0); EOS % 6.6 % (0-4.5); HEMATOCRIT 34.3 % (32.4-45.2); HEMOGLOBIN 11.9 GM/dL (10.7-15.3); LYMPH % 29.8 % (8-40); MCH 30.6 pg (25.7-33.7); MCHC 34.7 g/dl (32.0-36.0); MEAN CELL VOLUME 88.2 fl (80-96); MEAN PLT VOLUME 6.4 fl (7.5-11.1); MONO % 9.8 % (3.8-10.2); NEUT % 53.2 % (42.8-82.8); PLATELET COUNT 229 K/MM3 (134-434); RBC 3.88 M/mm3 (3.60-5.2); RDW 13.7 % (11.6-15.6); WHITE BLOOD COUNT 6.2 K/mm3 (4.0-10.0)
--- NOTE | 2017-07-08 09:50 | PN ---
Progress Note (short form) - Note Progress Note: Dr. uTcker to document today. Periods of sudden tachycardia and low Pulse Ox readings at home. Also cognitive impairment.
[2017-07-08] MEDS ORDERED: TIOTROPIUM BROMIDE 18 MCG CAPSULES IH SCH (10:00)
[2017-07-08] MEDS ORDERED: RAMIPRIL 2.5 MG CAPSULE (FP) PO SCH (10:00)
[2017-07-08] MEDS ORDERED: MONTELUKAST NA 10 MG TABLET PO SCH (10:00)
[2017-07-08] MEDS ORDERED: HYDROCHLOROTHIAZIDE 12.5 MG CAPSULE (FP) PO SCH (10:00)
[2017-07-08] MEDS: TIOTROPIUM BROMIDE 18 MCG CAPSULES IH SCH (10:13)
[2017-07-08] MEDS: ESCITALOPRAM OXALATE 10 MG TABLET (FP) PO SCH (10:13)
[2017-07-08] MEDS: BUDESONIDE/FORMETEROL FUMARATE 160/4.5 mcg INHALER IH SCH ×2 (10:14→21:20)
[2017-07-08 10:51] LABS: ALBUMIN 3.1 g/dl (3.4-5.0); ANION GAP 7 (8-16); BLOOD UREA NITROGEN 9 mg/dL (7-18); CALCIUM 8.3 mg/dL (8.5-10.1); CHLORIDE 92 mmol/L (98-107); CHOLESTEROL 140 mg/dL (50-200); CO2 33 mmol/L (21-32); CREATININE 0.5 mg/dL (0.55-1.02); GLUCOSE,RANDOM 74 mg/dL (74-106); MAGNESIUM 1.9 mg/dL (1.8-2.4); POTASSIUM 3.8 mmol/L (3.5-5.1); SGOT/AST 19 U/L (15-37); SODIUM 132 mmol/L (136-145); TOT PROT 6.4 g/dl (6.4-8.2)
[2017-07-08 10:57] LABS: ALK PHOS 48 U/L (45-117); BILIRUBIN,TOTAL 0.6 mg/dL (0.2-1.0); HDL CHOLESTEROL 78 mg/dL (40-60); LDL CHOLESTEROL (ONLY SJRH) 60 mg/dL (5-100); SGPT/ALT 18 U/L (12-78); TRIGLYCERIDES 50 mg/dL (35-160)
[2017-07-08] MEDS ORDERED: METOPROLOL TARTRATE 5 MG/5 ML VIAL IVPUSH PRN (11:19)
--- NOTE | 2017-07-08 11:20 | PN ---
Progress Note, Physician Chief Complaint: Ms Casillas says she is feeling better today, says she is feeling back to normal. No cp, sob, n/v. Daughter at bedside and also says looks back to normal. - Current Medication List Current Medications: Active Medications Albuterol/Ipratropium (Duoneb -) 1 amp NEB Q6H PRN PRN Reason: SHORTNESS OF BREATH Last Admin: 07/08/17 07:57 Dose: 1 amp Aspirin (Asa -) 81 mg PO Q2D [facility] Atorvastatin Calcium (Lipitor -) 20 mg PO HS [facility] Last Admin: 07/07/17 22:13 Dose: 20 mg Budesonide/Formoterol Fumarate (Symbicort 160/4.5mcg -) 1 puff IH BID [facility] Last Admin: 07/08/17 10:14 Dose: 1 puff Escitalopram Oxalate (Lexapro -) 15 mg PO DAILY [facility] Last Admin: 07/08/17 10:13 Dose: 15 mg Hydrochlorothiazide (Hctz -) 12.5 mg PO DAILY [facility] Last Admin: 07/08/17 10:14 Dose: 12.5 mg Montelukast Sodium (Singulair -) 10 mg PO HS [facility] Last Admin: 07/07/17 23:22 Dose: 10 mg Sodium Chloride (Normal Saline For Inhalation -) 3 ml IH Q6H PRN PRN Reason: ASTHMA Tiotropium [place] (Spiriva -) 1 puff IH DAILY [facility] Last Admin: 07/08/17 10:13 Dose: 1 puff - Objective Vital Signs: Vital Signs Temperature 36.6 C 07/08/17 08:06 Pulse Rate 93 H 07/08/17 08:06 Respiratory Rate 16 07/08/17 08:06 Blood Pressure 129/64 07/08/17 08:06 O2 Sat by Pulse Oximetry (%) 96 07/08/17 08:00 Constitutional: Yes: No Distress, Calm, Thin Cardiovascular: Yes: Regular Rate and Rhythm. No: Gallop, Murmur, Rub Respiratory: Yes: Regular, CTA Bilaterally, On Nasal O2. No: Rales, Rhonchi, Wheezes Gastrointestinal: Yes: Normal Bowel Sounds, Soft. No: Distention, Tenderness Extremities: Yes: WNL Edema: No Labs: CBC, BMP 07/08/17 09:30 07/08/17 09:30 INR, PTT INR 1.06 (0.82-1.09) 07/07/17 12:44 Problem List - Problems (1) COPD (chronic obstructive pulmonary disease) Assessment/Plan: -patient with COPD -presents with hypoxia, corrected with oxygen -does not appear to be COPD exacerbation -? if progression of COPD and needs chronic oxygen -pulmonary consult -continue spiriva, duonebs, and singulair Code(s): J44.9 - CHRONIC OBSTRUCTIVE PULMONARY DISEASE, UNSPECIFIED Qualifiers: COPD type: unspecified COPD Qualified Code(s): J44.9 - Chronic obstructive pulmonary disease, unspecified (2) Hypoxia Assessment/Plan: -corrected with oxygen supplementation -pulmonary evaluating -may need to wear oxygen continuously instead of just at night Code(s): R09.02 - HYPOXEMIA (3) Palpitations Assessment/Plan: -suspect secondary to hypoxia -monitor on telemetry -cardiology consulted Code(s): R00.2 - PALPITATIONS (4) HLD (hyperlipidemia) Assessment/Plan: -continue statin Code(s): E78.5 - HYPERLIPIDEMIA, UNSPECIFIED (5) HTN (hypertension) Assessment/Plan: -continue HCTZ -monitor Code(s): I10 - ESSENTIAL (PRIMARY) HYPERTENSION
[2017-07-08] MEDS ORDERED: PT OWN MED DRAWER 7, Y5N ONE ×2 (14:25→20:31)
--- NOTE | 2017-07-08 14:25 | CON.PULM ---
Consult Consult Specialty:: PULMONARY Referred by:: SUSANNE Reason for Consultation:: SOB - History of Present Illness Chief Complaint: SOB History of Present Illness: Patient is an 82 year old female with a significant past medical history of COPD , emphysema (home oxygen dependent), bronchitis, chronic UTIs, hysterectomy, cataract surgery, ureteral repair, mild cognitive impairment, hypertension, orthostatic hypotension and hyperlipidemia. Patient presents to the ED with c/ o of shortness of breath and palpitations. Patient is home oxygen dependent and wears 3 liters of nasal cannula at night and as needed during the day. She continues to smoke 2-3 cigarettes per day. In the ED her oxygen saturation on room air was noted to be 79% and she was placed on 3 liters of nasal cannula. A vascular study is negative for a DVT. Chest CTA negative for PE but findings consistent with emphysema, chronic bronchitis and bilateral hydronephrosis. EKG shows sinus rhythm with sinus arrhythmias. - History Source History Provided By: Patient, Medical Record Limitations to Obtaining History: Clinical Condition - Past Medical History RESAWYER: Yes: Dementia Cardio/Vascular: Yes: HTN Pulmonary: Yes: COPD - Alcohol/Substance Use Hx Alcohol Use: No - Smoking History Smoking history: Former smoker Have you smoked in the past 12 months: No Aproximately how many cigarettes per day: 5 If you are a former smoker, when did you quit?: 2017 - Social History Place of : [facility] History of Recent Travel: No Home Medications - Allergies Allergies/Adverse Reactions: Allergies Allergy/AdvReac Type Severity Reaction Status Date / Time levofloxacin [From Levaquin] Allergy Verified 12/13/16 10:45 prednisone AdvReac Verified 12/13/16 10:45 - Home Medications Home Medications: Ambulatory Orders Albuterol Sulfate [Proair Respiclick] 90 mcg IH BID 12/13/16 Aspirin [ASA -] 81 mg PO Q2D 12/13/16 Budesonide/Formeterol Fumarate [SYMBICORT 160/4.5mcg -] 1 inh PO BID 12/13/16 Calcium Carbonate/Vitamin D3 [Calcium 500-Vit D3 600 Tablet] 1 each PO DAILY Escitalopram Oxalate [Lexapro -] 15 mg PO DAILY 12/13/16 Hydrochlorothiazide [Hctz -] 12.5 mg PO DAILY 12/13/16 Magnesium 1 tab PO TID 12/13/16 Montelukast Na [Singulair -] 10 mg PO HS 12/13/16 Multivit-Min/Iron Fum/Folic AC [Jxwhh-Phfqvya-Eyabqzpb Tablet] 1 tab PO DAILY Nicotine Patch [Nicoderm Patch -] 21 mg TD DAILY #14 patch 12/16/16 Roflumilast [Daliresp -] 500 mcg PO DAILY #30 tablet 12/16/16 Tiotropium [place] [Spiriva] 1 inh IH DAILY #1 inh 12/16/16 Atorvastatin Ca [Lipitor] 20 mg PO HS 07/07/17 Roflumilast [Daliresp] 500 mcg PO DAILY 07/07/17 Tiotropium [place] [Spiriva] 1 inh IH DAILY 07/07/17 Family Disease History - Family Disease History Family History: Unremarkable Review of Systems - Review of Systems Constitutional: denies: Fever Eyes: denies: Blurred Vision HENT: denies: Difficult Swallowing Neck: denies: Decreased ROM Cardiovascular: reports: Shortness of Breath. denies: Chest Pain Respiratory: reports: Cough, Exercise Intolerance, SOB, SOB on Exertion. denies : Hemoptysis, Wheezing Gastrointestinal: denies: Abdominal Pain Genitourinary: denies: Burning Physical Exam Vital Sings: Vital Signs Temperature 97.9 F 07/08/17 08:06 Pulse Rate 93 H 07/08/17 08:06 Respiratory Rate 16 07/08/17 08:06 Blood Pressure 129/64 07/08/17 08:06 O2 Sat by Pulse Oximetry (%) 96 07/08/17 08:00 Constitutional: Yes: Calm Eyes: Yes: EOM Intact HENT: Yes: Normocephalic Neck: Yes: Trachea Midline Cardiovascular: Yes: Regular Rate and Rhythm, S1, S2 Respiratory: Yes: Diminished Gastrointestinal: Yes: Normal Bowel Sounds, Abdomen, Obese Edema: LLE: 1+, RLE: 1+ Psychiatric: Yes: Alert Labs: CBC, BMP 07/08/17 09:30 07/08/17 09:30 REST REVIEWED Imaging - Results Chest X-ray: Report Reviewed, Image Reviewed Cat Scan: Report Reviewed, Image Reviewed Other: Report Reviewed (ECHO) Problem List - Problems (1) COPD (chronic obstructive pulmonary disease) Code(s): J44.9 - CHRONIC OBSTRUCTIVE PULMONARY DISEASE, UNSPECIFIED Qualifiers: COPD type: unspecified COPD Qualified Code(s): J44.9 - Chronic obstructive pulmonary disease, unspecified (2) HLD (hyperlipidemia) Code(s): E78.5 - HYPERLIPIDEMIA, UNSPECIFIED (3) HTN (hypertension) Code(s): I10 - ESSENTIAL (PRIMARY) HYPERTENSION (4) Palpitations Code(s): R00.2 - PALPITATIONS (5) Hypoxia Code(s): R09.02 - HYPOXEMIA Assessment/Plan 02 TO KEEP SAT GREATER THAN 90% ISAAC/LABA/ICS/JAZMYN/ IV STEROIDS/HOLD ANTIBIOTICS FOR NOW ENCOURAGE SMOKING CESATION DVT/PUD PROPHYLAXSIS WILL FOLLOW yNdia ESCOBAR MD
--- NOTE | 2017-07-08 14:43 | CON.CARD ---
Cardiology Consult (text) - Consultation Consultation Note: CC: tachycardia/svt 82 yo former smoker (recently quit) with PMH of emphysema (on 3L home O2 nightly), HTN, hyperlipidemia, orthostatic hypotension, and mild cognitive impairment who p/w palpitations/tachycardia in setting of hypoxia. Per pmd notes, daughter called office to inform pmd that while her mother was off oxygen her saturation decreased to 80 and her HR increased to 170 with assoc palps. Hr decreased to < 100 once back on oxygen with normal saturation. Due to how high her HR had increased, pmd was concerned she had acute SVT or other atrial arrhythmia and recommended she be evaluated at the emergency room. Patient reports that for the past month or so, her O2 sat is intermittently low when on room air. Previously she has been able to have normal oxygen saturation on room air. In may, office bp's were low in the 90's with associated intermittent lightheadedness. her hctz was decreased to daily dosing instead of bid. per report she wast taking hctz for LE edema. Patient states that lightheadedness resolved on the lower hctz dose and the LE edema did not worsen. (Overall improved recently). However, no sig improvement in sbp's. s/p IVF at 75 cc/hr yesterday. no cp, orthopnea, pnd, presyncope, bleeding. no f/c/s, congestion. n/v/d, decreased po intake, rash, h/a, visual disturbances. Has not had recurrence of palps today. Dr. 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 Family History: Mother at 93 of natural causes, father at 70 from heart disease ros: per hpi Ambulatory Orders Albuterol Sulfate [Proair Respiclick] 90 mcg IH BID 12/13/16 Aspirin [ASA -] 81 mg PO Q2D 12/13/16 Budesonide/Formeterol Fumarate [SYMBICORT 160/4.5mcg -] 1 inh PO BID 12/13/16 Calcium Carbonate/Vitamin D3 [Calcium 500-Vit D3 600 Tablet] 1 each PO DAILY Escitalopram Oxalate [Lexapro -] 15 mg PO DAILY 12/13/16 Hydrochlorothiazide [Hctz -] 12.5 mg PO DAILY 12/13/16 Magnesium 1 tab PO TID 12/13/16 Montelukast Na [Singulair -] 10 mg PO HS 12/13/16 Multivit-Min/Iron Fum/Folic AC [Ybokk-Epoznrp-Zkowtiaa Tablet] 1 tab PO DAILY Nicotine Patch [Nicoderm Patch -] 21 mg TD DAILY #14 patch 12/16/16 Roflumilast [Daliresp -] 500 mcg PO DAILY #30 tablet 12/16/16 Tiotropium [place] [Spiriva] 1 inh IH DAILY #1 inh 12/16/16 Atorvastatin Ca [Lipitor] 20 mg PO HS 07/07/17 Roflumilast [Daliresp] 500 mcg PO DAILY 07/07/17 Tiotropium [place] [Spiriva] 1 inh IH DAILY 07/07/17 Per office records, is also on ramipril 2.5 mg/day Current Medications Albuterol/Ipratropium (Duoneb -) 1 amp NEB Q6H PRN PRN Reason: SHORTNESS OF BREATH Last Admin: 07/08/17 07:57 Dose: 1 amp Aspirin (Asa -) 81 mg PO Q2D [facility] Atorvastatin Calcium (Lipitor -) 20 mg PO HS [facility] Last Admin: 07/07/17 22:13 Dose: 20 mg Budesonide/Formoterol Fumarate (Symbicort 160/4.5mcg -) 1 puff IH BID [facility] Last Admin: 07/08/17 10:14 Dose: 1 puff Escitalopram Oxalate (Lexapro -) 15 mg PO DAILY [facility] Last Admin: 07/08/17 10:13 Dose: 15 mg Hydrochlorothiazide (Hctz -) 12.5 mg PO DAILY [facility] Last Admin: 07/08/17 10:14 Dose: 12.5 mg Metoprolol Tartrate (Lopressor Injection -) 5 mg IVPUSH Q4H PRN PRN Reason: TACHYCARDIA Montelukast Sodium (Singulair -) 10 mg PO HS [facility] Last Admin: 07/07/17 23:22 Dose: 10 mg Sodium Chloride (Normal Saline For Inhalation -) 3 ml IH Q6H PRN PRN Reason: ASTHMA Vital Signs - 24 hr 07/07/17 07/07/17 07/07/17 18:00 19:54 19:59 Temperature 98.0 F Pulse Rate 92 H 92 H Pulse Rate [ 90 Apical] Respiratory 16 Rate Blood Pressure Blood Pressure 100/49 [Left Arm] O2 Sat by Pulse 94 L 94 L 94 L Oximetry (%) 07/07/17 07/08/17 07/08/17 20:15 02:00 06:00 Temperature 97.6 F 97.5 F L 98.1 F Pulse Rate 89 88 93 H Pulse Rate [ Apical] Respiratory 20 20 20 Rate Blood Pressure 97/68 142/86 140/83 Blood Pressure [Left Arm] O2 Sat by Pulse 95 Oximetry (%) 07/08/17 07/08/17 08:00 08:06 Temperature 97.9 F Pulse Rate 93 H Pulse Rate [ Apical] Respiratory 16 16 Rate Blood Pressure 129/64 Blood Pressure [Left Arm] O2 Sat by Pulse 96 Oximetry (%) Intake & Output 07/06/17 07/07/17 07/08/17 07/09/17 07:59 07:59 07:59 07:59 Intake Total 675 305 Balance 675 305 Weight 96 lb 6.4 oz 96 lb nad, calm, thin jvd flat, neck supple diminished air mov't, trace rales, nl effort rrr nl s1, s2 no mrg + bs soft nt nd, no hsm ext with trace-1+ soft edema diminished dp/pt aaox3 no jaundice, diaphoresis CBC, BMP 07/08/17 09:30 07/08/17 09:30 Laboratory Tests 12/13/16 07/07/17 07/07/17 11:24 12:44 19:46 Magnesium Total Bilirubin AST ALT Alkaline Phosphatase Creatine Kinase 49 Troponin I < 0.02 < 0.02 B-Natriuretic Peptide 342.23 667.35 H Albumin Triglycerides Cholesterol Total LDL Cholesterol HDL Cholesterol TSH 07/07/17 07/08/17 07/08/17 21:30 06:00 09:30 Magnesium 1.9 Total Bilirubin 0.6 AST 19 ALT 18 Alkaline Phosphatase 48 Creatine Kinase Troponin I < 0.02 B-Natriuretic Peptide Albumin 3.1 L Triglycerides 50 Cholesterol 140 Total LDL Cholesterol 60 HDL Cholesterol 78 H TSH 0.92 EKG 06/2017: baseline artifact. sr, 95 bpm. LAE. ?anterolateral q's, poor r wave progression. anterior twi. similar to priors. tele: frequent brief runs of svt (atach vs. avrt) echo 06/2017: Nl lv fn.(size not mentioned) Nl rv size/fn. mod mr. CT/Chest CTA images and report reviewed - No PE. Interval dev'p of a 4x3x2 cm subpleural opacity (infiltrate vs. atelectasis, less likely neoplasm) in posterior RUL. Dilated pulmonary artery. Moderate centribular empysema. Mucosal secretions adherent to simental of trachea consistent with chronic bronchitis. small rt pleural effusion with assoc compressive atelectasis. Kidneys with bilateral hydronephrosis. Partial imaging of a 0.9x0.2cm left renal cortical focus is seen possibly representing a non obstructing calculus ( versus contrast material) vascular study is negative for a DVT, bilaterally. ASSESSMENT/PLAN 82 yo former smoker (recently quit) with PMH of emphysema (on 3L home O2 nightly), HTN, hyperlipidemia, orthostatic hypotension, and mild cognitive impairment who p/w palpitations/tachycardia in setting of hypoxia. tachycardia in setting of hypoxia, intermittent runs of SVT on tele. - likely exacerbated by hypoxia in setting of removing oxygen. patient O2 dependent, but uses prn during the day. - no PE/DVT on imaging. tsh wnl, k, mg close to goal of > 4.0 and > 2.0 respectively. - echo with mod mr. CE's neg x 3. EKG without acute ischemic changes. No signs of ACS. - check orthostatic vitals. - patient with new subpleural RUL opacity. discussed with pmd, currently no signs of infection, con't to monitor. Eval/mgm't of opacity per pmd/pulm. - Frequent runs of brief SVT on tele. Will stop hctz and start low dose diltiazem for suppression. lyte repletion prn. con't tele. HTN/LE edema - sbp's recently running low. Med changes as above. - Can replace HCTZ for LE edema with manual compression using compression stockings or GEORGE wraps. hyponatremia - appears to be chronic based on prior inpatient labs. - monitor for improvement off of hctz.
[2017-07-08] MEDS: MONTELUKAST NA 10 MG TABLET PO SCH (21:19)
[2017-07-08] MEDS: ATORVASTATIN CA 20 MG TABLET (FP) PO SCH (21:19)
[2017-07-08] MEDS ORDERED: POTASSIUM CHLORIDE TABS 10 MEQ TABLET.ER (FP) PO ONE (21:22)
[2017-07-08] MEDS ORDERED: MAGNESIUM OXIDE 400 MG TABLET (FP) PO ONE (21:22)
[2017-07-09 07:03] LABS: BASO % 0.3 % (0-2.0); EOS % 6.6 % (0-4.5); HEMATOCRIT 36.9 % (32.4-45.2); HEMOGLOBIN 12.7 GM/dL (10.7-15.3); LYMPH % 35.5 % (8-40); MCH 30.6 pg (25.7-33.7); MCHC 34.4 g/dl (32.0-36.0); MEAN CELL VOLUME 88.9 fl (80-96); MEAN PLT VOLUME 6.4 fl (7.5-11.1); MONO % 10.7 % (3.8-10.2); NEUT % 46.9 % (42.8-82.8); PLATELET COUNT 238 K/MM3 (134-434); RBC 4.15 M/mm3 (3.60-5.2); RDW 14.1 % (11.6-15.6); WHITE BLOOD COUNT 6.9 K/mm3 (4.0-10.0)
[2017-07-09 07:51] LABS: CHLORIDE 95 mmol/L (98-107); POTASSIUM 4.7 mmol/L (3.5-5.1); SODIUM 134 mmol/L (136-145)
[2017-07-09 08:05] LABS: ANION GAP 4 (8-16); BLOOD UREA NITROGEN 11 mg/dL (7-18); CALCIUM 8.4 mg/dL (8.5-10.1); CO2 35 mmol/L (21-32); CREATININE 0.5 mg/dL (0.55-1.02); GLUCOSE,RANDOM 81 mg/dL (74-106); MAGNESIUM 2.1 mg/dL (1.8-2.4); PHOSPHOROUS 3.3 mg/dL (2.5-4.9)
[2017-07-09] MEDS ORDERED: PT OWN MED DRAWER 7, Y5N ONE (08:36)
[2017-07-09] MEDS: ASPIRIN 81 MG CHEWABLE TABLETS PO SCH (09:30)
[2017-07-09] MEDS: ROFLUMILAST 500 MCG TABLET PO SCH (09:31)
[2017-07-09] MEDS: ESCITALOPRAM OXALATE 10 MG TABLET (FP) PO SCH (09:31)
[2017-07-09] MEDS: BUDESONIDE/FORMETEROL FUMARATE 160/4.5 mcg INHALER IH SCH ×2 (09:32→21:26)
[2017-07-09] MEDS: ALBUTEROL SO4 2.5/IPRATROPIUM 0.5 INH SOL 3 ML VIAL.NEB. NEB SCH ×2 (10:35→21:27)
--- NOTE | 2017-07-09 11:42 | PN ---
Progress Note, Physician History of Present Illness: Events at 9AM noted, TEle showed tachycardia Given additional dose of DIlt Now feels well - Current Medication List Current Medications: Active Medications Albuterol/Ipratropium (Duoneb -) 1 amp NEB Q6H PRN PRN Reason: SHORTNESS OF BREATH Last Admin: 07/08/17 07:57 Dose: 1 amp Albuterol/Ipratropium (Duoneb -) 1 amp NEB BID [facility] Last Admin: 07/09/17 10:35 Dose: 1 amp Aspirin (Asa -) 81 mg PO Q2D [facility] Last Admin: 07/09/17 09:30 Dose: 81 mg Atorvastatin Calcium (Lipitor -) 20 mg PO HS [facility] Last Admin: 07/08/17 21:19 Dose: 20 mg Budesonide/Formoterol Fumarate (Symbicort 160/4.5mcg -) 1 puff IH BID [facility] Last Admin: 07/09/17 09:32 Dose: 1 puff Diltiazem HCl (Cardizem Cd -) 120 mg PO DAILY [facility] Last Admin: 07/09/17 05:40 Dose: 120 mg Escitalopram Oxalate (Lexapro -) 15 mg PO DAILY [facility] Last Admin: 07/09/17 09:31 Dose: 15 mg Metoprolol Tartrate (Lopressor Injection -) 5 mg IVPUSH Q4H PRN PRN Reason: TACHYCARDIA Montelukast Sodium (Singulair -) 10 mg PO HS [facility] Last Admin: 07/08/17 21:19 Dose: 10 mg Roflumilast (Daliresp -) 500 mcg PO DAILY [facility] Last Admin: 07/09/17 09:31 Dose: 500 mcg Sodium Chloride (Normal Saline For Inhalation -) 3 ml IH Q6H PRN PRN Reason: ASTHMA - Objective Vital Signs: Vital Signs Temperature 97.8 F 07/09/17 07:40 Pulse Rate 94 H 07/09/17 07:40 Respiratory Rate 18 07/09/17 07:40 Blood Pressure 139/77 07/09/17 07:40 O2 Sat by Pulse Oximetry (%) 98 07/09/17 07:40 Constitutional: Yes: No Distress, Calm Eyes: Yes: WNL HENT: Yes: WNL Neck: Yes: WNL Cardiovascular: Yes: Regular Rate and Rhythm Respiratory: Yes: CTA Bilaterally Musculoskeletal: Yes: WNL Extremities: Yes: WNL Edema: LLE: Trace, RLE: Trace Labs: CBC, BMP 07/09/17 06:00 07/09/17 06:00 INR, PTT INR 1.06 (0.82-1.09) 07/07/17 12:44 Assessment/Plan 82 yo former smoker (recently quit) with PMH of emphysema (on 3L home O2 nightly), HTN, hyperlipidemia, orthostatic hypotension, and mild cognitive impairment who p/w palpitations/tachycardia in setting of hypoxia. tachycardia in setting of hypoxia, intermittent runs of SVT on tele. - likely exacerbated by hypoxia in setting of removing oxygen. patient O2 dependent, but uses prn during the day. - no PE/DVT on imaging. tsh wnl, k, mg close to goal of > 4.0 and > 2.0 respectively. - echo with mod mrToshia SILVA's neg x 3. EKG without acute ischemic changes. No signs of ACS. - check orthostatic vitals. - patient with new subpleural RUL opacity. discussed with pmd, currently no signs of infection, con't to monitor. Eval/mgm't of opacity per pmd/pulm. - Frequent runs of brief SVT on tele. 07/09: Started on Cardizem 120mg. Will monitor for PSVT suppresion. HTN/LE edema - sbp's recently running low. Med changes as above. - Can replace HCTZ for LE edema -Ordered SCD hyponatremia - appears to be chronic based on prior inpatient labs. - monitor for improvement off of hctz.
--- NOTE | 2017-07-09 11:50 | PN ---
Progress Note, Physician History of Present Illness: Patient feeling better with oxygen, but had tachycardia while lying in bed this morning. Now patient walking with assistance to solarium. Does seem to get more congested in chest lately (phlegm) - Current Medication List Current Medications: Active Medications Albuterol/Ipratropium (Duoneb -) 1 amp NEB Q6H PRN PRN Reason: SHORTNESS OF BREATH Last Admin: 07/08/17 07:57 Dose: 1 amp Albuterol/Ipratropium (Duoneb -) 1 amp NEB BID [facility] Last Admin: 07/09/17 10:35 Dose: 1 amp Aspirin (Asa -) 81 mg PO Q2D [facility] Last Admin: 07/09/17 09:30 Dose: 81 mg Atorvastatin Calcium (Lipitor -) 20 mg PO HS [facility] Last Admin: 07/08/17 21:19 Dose: 20 mg Budesonide/Formoterol Fumarate (Symbicort 160/4.5mcg -) 1 puff IH BID [facility] Last Admin: 07/09/17 09:32 Dose: 1 puff Diltiazem HCl (Cardizem Cd -) 120 mg PO DAILY [facility] Last Admin: 07/09/17 05:40 Dose: 120 mg Escitalopram Oxalate (Lexapro -) 15 mg PO DAILY [facility] Last Admin: 07/09/17 09:31 Dose: 15 mg Metoprolol Tartrate (Lopressor Injection -) 5 mg IVPUSH Q4H PRN PRN Reason: TACHYCARDIA Montelukast Sodium (Singulair -) 10 mg PO [facility] Last Admin: 07/08/17 21:19 Dose: 10 mg Roflumilast (Daliresp -) 500 mcg PO DAILY [facility] Last Admin: 07/09/17 09:31 Dose: 500 mcg Sodium Chloride (Normal Saline For Inhalation -) 3 ml IH Q6H PRN PRN Reason: ASTHMA - Objective Vital Signs: Vital Signs Temperature 97.8 F 07/09/17 07:40 Pulse Rate 94 H 07/09/17 07:40 Respiratory Rate 18 07/09/17 07:40 Blood Pressure 139/77 07/09/17 07:40 O2 Sat by Pulse Oximetry (%) 98 07/09/17 07:40 Constitutional: Yes: No Distress, Calm Eyes: Yes: Conjunctiva Clear, EOM Intact, PERRL HENT: Yes: Atraumatic, Normocephalic Neck: Yes: Supple, Trachea Midline Cardiovascular: Yes: Regular Rate and Rhythm, S1, S2. No: Murmur Respiratory: Yes: Regular, Rhonchi (bilateral bases) Gastrointestinal: Yes: Normal Bowel Sounds, Soft. No: Distention, Tenderness Edema: No Labs: CBC, BMP 07/09/17 06:00 07/09/17 06:00 INR, PTT INR 1.06 (0.82-1.09) 07/07/17 12:44 Assessment/Plan Current Active Problems COPD (chronic obstructive pulmonary disease) (Acute) HLD (hyperlipidemia) (Acute) HTN (hypertension) (Acute) Palpitations (Acute) -will start standing Duoneb (only prn currently) BID and observe for improvement
--- NOTE | 2017-07-09 12:33 | PN ---
Progress Note (short form) - Note Progress Note: PULMONARY APPEARS STABLE DAUGHTER PRESENT VSS/AFEB ANICTERIC DIMINISHED BREATH SOUNDS B/L S1S2 BS+ NO EDEMA LABS/CT CHEST/MEDS/NOTES REVIEWED (1) COPD (chronic obstructive pulmonary disease) Code(s): J44.9 - CHRONIC OBSTRUCTIVE PULMONARY DISEASE, UNSPECIFIED Qualifiers: COPD type: unspecified COPD Qualified Code(s): J44.9 - Chronic obstructive pulmonary disease, unspecified (2) HLD (hyperlipidemia) Code(s): E78.5 - HYPERLIPIDEMIA, UNSPECIFIED (3) HTN (hypertension) Code(s): I10 - ESSENTIAL (PRIMARY) HYPERTENSION (4) Palpitations Code(s): R00.2 - PALPITATIONS (5) Hypoxia Code(s): R09.02 - HYPOXEMIA Assessment/Plan 02 TO KEEP SAT GREATER THAN 90% ISAAC/LABA/ICS/JAZMYN/ IV STEROIDS/HOLD ANTIBIOTICS FOR NOW ENCOURAGE SMOKING CESATION DVT/PUD PROPHYLAXSIS WILL NEED F/U CT CHEST OUTPATIENT FOR RUL PLEURAL BASED DENSITY Nydia ESCOBAR MD Problem List - Problems (1) COPD (chronic obstructive pulmonary disease) Code(s): J44.9 - CHRONIC OBSTRUCTIVE PULMONARY DISEASE, UNSPECIFIED Qualifiers: COPD type: unspecified COPD Qualified Code(s): J44.9 - Chronic obstructive pulmonary disease, unspecified (2) HLD (hyperlipidemia) Code(s): E78.5 - HYPERLIPIDEMIA, UNSPECIFIED (3) HTN (hypertension) Code(s): I10 - ESSENTIAL (PRIMARY) HYPERTENSION (4) Palpitations Code(s): R00.2 - PALPITATIONS (5) Hypoxia Code(s): R09.02 - HYPOXEMIA
[2017-07-09] MEDS: ATORVASTATIN CA 20 MG TABLET (FP) PO SCH (21:26)
[2017-07-09] MEDS: MONTELUKAST NA 10 MG TABLET PO SCH (21:26)
[2017-07-10 06:54] LABS: BASO % 0.2 % (0-2.0); EOS % 5.4 % (0-4.5); HEMATOCRIT 34.1 % (32.4-45.2); HEMOGLOBIN 11.8 GM/dL (10.7-15.3); LYMPH % 30.3 % (8-40); MCH 30.9 pg (25.7-33.7); MCHC 34.6 g/dl (32.0-36.0); MEAN CELL VOLUME 89.1 fl (80-96); MEAN PLT VOLUME 6.4 fl (7.5-11.1); MONO % 9.9 % (3.8-10.2); NEUT % 54.2 % (42.8-82.8); PLATELET COUNT 212 K/MM3 (134-434); RBC 3.82 M/mm3 (3.60-5.2); RDW 13.9 % (11.6-15.6); WHITE BLOOD COUNT 5.9 K/mm3 (4.0-10.0)
[2017-07-10 07:12] LABS: CHLORIDE 94 mmol/L (98-107); POTASSIUM 4.5 mmol/L (3.5-5.1); SODIUM 134 mmol/L (136-145)
[2017-07-10 07:27] LABS: ALBUMIN 3.1 g/dl (3.4-5.0); ALK PHOS 47 U/L (45-117); ANION GAP 3 (8-16); BILIRUBIN,TOTAL 0.6 mg/dL (0.2-1.0); BLOOD UREA NITROGEN 11 mg/dL (7-18); CALCIUM 8.2 mg/dL (8.5-10.1); CO2 37 mmol/L (21-32); CREATININE 0.4 mg/dL (0.55-1.02); GLUCOSE,RANDOM 89 mg/dL (74-106); SGOT/AST 16 U/L (15-37); SGPT/ALT 18 U/L (12-78); TOT PROT 6.4 g/dl (6.4-8.2)
[2017-07-10] MEDS: ROFLUMILAST 500 MCG TABLET PO SCH (09:06)
[2017-07-10] MEDS: ESCITALOPRAM OXALATE 10 MG TABLET (FP) PO SCH (09:06)
[2017-07-10] MEDS: BUDESONIDE/FORMETEROL FUMARATE 160/4.5 mcg INHALER IH SCH ×2 (09:07→21:32)
[2017-07-10] MEDS: ALBUTEROL SO4 2.5/IPRATROPIUM 0.5 INH SOL 3 ML VIAL.NEB. NEB SCH ×2 (10:03→21:21)
--- NOTE | 2017-07-10 10:51 | PN ---
Progress Note, Physician History of Present Illness: Feeling improved today Remains on O2 Tele reviewed: No SVT, fastest was 90s with PVCs - Current Medication List Current Medications: Active Medications Albuterol/Ipratropium (Duoneb -) 1 amp NEB Q6H PRN PRN Reason: SHORTNESS OF BREATH Last Admin: 07/08/17 07:57 Dose: 1 amp Albuterol/Ipratropium (Duoneb -) 1 amp NEB BID [facility] Last Admin: 07/10/17 10:03 Dose: 1 amp Aspirin (Asa -) 81 mg PO Q2D [facility] Last Admin: 07/09/17 09:30 Dose: 81 mg Atorvastatin Calcium (Lipitor -) 20 mg PO HS [facility] Last Admin: 07/09/17 21:26 Dose: 20 mg Budesonide/Formoterol Fumarate (Symbicort 160/4.5mcg -) 1 puff IH BID [facility] Last Admin: 07/10/17 09:07 Dose: 1 puff Diltiazem HCl (Cardizem Cd -) 120 mg PO DAILY [facility] Last Admin: 07/10/17 09:06 Dose: 120 mg Escitalopram Oxalate (Lexapro -) 15 mg PO DAILY [facility] Last Admin: 07/10/17 09:06 Dose: 15 mg Metoprolol Tartrate (Lopressor Injection -) 5 mg IVPUSH Q4H PRN PRN Reason: TACHYCARDIA Montelukast Sodium (Singulair -) 10 mg PO HS [facility] Last Admin: 07/09/17 21:26 Dose: 10 mg Roflumilast (Daliresp -) 500 mcg PO DAILY [facility] Last Admin: 07/10/17 09:06 Dose: 500 mcg Sodium Chloride (Normal Saline For Inhalation -) 3 ml IH Q6H PRN PRN Reason: ASTHMA - Objective Vital Signs: Vital Signs Temperature 97.5 F L 07/10/17 07:35 Pulse Rate 79 07/10/17 07:35 Respiratory Rate 20 07/10/17 07:39 Blood Pressure 127/66 07/10/17 07:35 O2 Sat by Pulse Oximetry (%) 96 07/10/17 07:39 Constitutional: Yes: No Distress, Calm Eyes: Yes: WNL HENT: Yes: WNL Neck: Yes: Supple Cardiovascular: Yes: Regular Rate and Rhythm Respiratory: Yes: Rales Gastrointestinal: Yes: Normal Bowel Sounds Genitourinary: Yes: WNL Musculoskeletal: Yes: WNL Edema: LLE: Trace, RLE: Trace Labs: CBC, BMP 07/10/17 06:00 07/10/17 06:00 INR, PTT INR 1.06 (0.82-1.09) 07/07/17 12:44 Assessment/Plan 82 yo former smoker (recently quit) with PMH of emphysema (on 3L home O2 nightly), HTN, hyperlipidemia, orthostatic hypotension, and mild cognitive impairment who p/w palpitations/tachycardia in setting of hypoxia. tachycardia in setting of hypoxia, intermittent runs of SVT on tele. - likely exacerbated by hypoxia in setting of removing oxygen. patient O2 dependent, but uses prn during the day. - no PE/DVT on imaging. tsh wnl, k, mg close to goal of > 4.0 and > 2.0 respectively. - echo with mod mr. CE's neg x 3. EKG without acute ischemic changes. No signs of ACS. - check orthostatic vitals. - patient with new subpleural RUL opacity. discussed with pmd, currently no signs of infection, con't to monitor. Eval/mgm't of opacity per pmd/pulm. - Frequent runs of brief SVT on tele. 07/09: Started on Cardizem 120mg. Will monitor for PSVT suppresion. 07/10: Tolerating Cardizem 120mg. Continue for now. Has crackles in bilateral bases. echo 06/2017: Nl lv fn.(size not mentioned) Nl rv size/fn. mod mr. Will check BNP level to guide diuresis. HTN/LE edema - sbp's recently running low. Med changes as above. - Can replace HCTZ for LE edema -07/09: Ordered SCD hyponatremia - appears to be chronic based on prior inpatient labs. - monitor for improvement off of hctz. 07/10: Na improving at 134
--- NOTE | 2017-07-10 11:34 | PN ---
Progress Note, Physician History of Present Illness: Patient without shortness of breath today. Notes discomfort in feet (heel pain from lying in bed). No SVT overnight. - Current Medication List Current Medications: Active Medications Albuterol/Ipratropium (Duoneb -) 1 amp NEB Q6H PRN PRN Reason: SHORTNESS OF BREATH Last Admin: 07/08/17 07:57 Dose: 1 amp Albuterol/Ipratropium (Duoneb -) 1 amp NEB BID [facility] Last Admin: 07/10/17 10:03 Dose: 1 amp Aspirin (Asa -) 81 mg PO Q2D [facility] Last Admin: 07/09/17 09:30 Dose: 81 mg Atorvastatin Calcium (Lipitor -) 20 mg PO HS [facility] Last Admin: 07/09/17 21:26 Dose: 20 mg Budesonide/Formoterol Fumarate (Symbicort 160/4.5mcg -) 1 puff IH BID [facility] Last Admin: 07/10/17 09:07 Dose: 1 puff Diltiazem HCl (Cardizem Cd -) 120 mg PO DAILY [facility] Last Admin: 07/10/17 09:06 Dose: 120 mg Escitalopram Oxalate (Lexapro -) 15 mg PO DAILY [facility] Last Admin: 07/10/17 09:06 Dose: 15 mg Metoprolol Tartrate (Lopressor Injection -) 5 mg IVPUSH Q4H PRN PRN Reason: TACHYCARDIA Montelukast Sodium (Singulair -) 10 mg PO HS [facility] Last Admin: 07/09/17 21:26 Dose: 10 mg Roflumilast (Daliresp -) 500 mcg PO DAILY [facility] Last Admin: 07/10/17 09:06 Dose: 500 mcg Sodium Chloride (Normal Saline For Inhalation -) 3 ml IH Q6H PRN PRN Reason: ASTHMA - Objective Vital Signs: Vital Signs Temperature 97.5 F L 07/10/17 07:35 Pulse Rate 79 07/10/17 07:35 Respiratory Rate 20 07/10/17 07:39 Blood Pressure 127/66 07/10/17 07:35 O2 Sat by Pulse Oximetry (%) 96 07/10/17 07:39 Constitutional: Yes: No Distress, Calm Eyes: Yes: Conjunctiva Clear, EOM Intact HENT: Yes: Atraumatic, Normocephalic Neck: Yes: Supple, Trachea Midline Cardiovascular: Yes: Regular Rate and Rhythm, S1, S2. No: Murmur Respiratory: Yes: Regular, CTA Bilaterally. No: Rales, Rhonchi, Wheezes Gastrointestinal: Yes: Normal Bowel Sounds, Soft. No: Distention, Tenderness Edema: No Neurological: Yes: Alert Labs: CBC, BMP 07/10/17 06:00 07/10/17 06:00 INR, PTT INR 1.06 (0.82-1.09) 07/07/17 12:44 Assessment/Plan Current Active Problems COPD (chronic obstructive pulmonary disease) (Acute) HLD (hyperlipidemia) (Acute) HTN (hypertension) (Acute) Palpitations (Acute)/ SVT -cont current treatment -podiatry consult
[2017-07-10] MEDS: MONTELUKAST NA 10 MG TABLET PO SCH (21:32)
[2017-07-10] MEDS: ATORVASTATIN CA 20 MG TABLET (FP) PO SCH (21:32)
[2017-07-11] MEDS: ALBUTEROL SO4 2.5/IPRATROPIUM 0.5 INH SOL 3 ML VIAL.NEB. NEB PRN (06:28)
[2017-07-11 06:50] LABS: BASO % 0.3 % (0-2.0); EOS % 4.5 % (0-4.5); HEMATOCRIT 35.4 % (32.4-45.2); LYMPH % 21.6 % (8-40); MCH 30.3 pg (25.7-33.7); MCHC 33.8 g/dl (32.0-36.0); MEAN CELL VOLUME 89.6 fl (80-96); MEAN PLT VOLUME 6.4 fl (7.5-11.1); MONO % 8.8 % (3.8-10.2); NEUT % 64.8 % (42.8-82.8); PLATELET COUNT 221 K/MM3 (134-434); RBC 3.95 M/mm3 (3.60-5.2); RDW 14.3 % (11.6-15.6); WHITE BLOOD COUNT 7.7 K/mm3 (4.0-10.0)
[2017-07-11 07:13] LABS: CHLORIDE 96 mmol/L (98-107); POTASSIUM 4.5 mmol/L (3.5-5.1); SODIUM 135 mmol/L (136-145)
[2017-07-11 07:31] LABS: ALBUMIN 3.1 g/dl (3.4-5.0); ALK PHOS 46 U/L (45-117); ANION GAP 4 (8-16); BILIRUBIN,TOTAL 0.5 mg/dL (0.2-1.0); BLOOD UREA NITROGEN 16 mg/dL (7-18); CALCIUM 8.5 mg/dL (8.5-10.1); CO2 35 mmol/L (21-32); CREATININE 0.4 mg/dL (0.55-1.02); GLUCOSE,RANDOM 94 mg/dL (74-106); N-TERMINAL BNP 218.51 pg/ml (5-450); SGOT/AST 16 U/L (15-37); SGPT/ALT 19 U/L (12-78); TOT PROT 6.4 g/dl (6.4-8.2)
[2017-07-11] MEDS ORDERED: PT OWN MED DRAWER 7, Y5N ONE (08:59)
[2017-07-11] MEDS: ROFLUMILAST 500 MCG TABLET PO SCH (09:30)
[2017-07-11] MEDS: ESCITALOPRAM OXALATE 10 MG TABLET (FP) PO SCH (09:30)
[2017-07-11] MEDS: ASPIRIN 81 MG CHEWABLE TABLETS PO SCH (09:30)
[2017-07-11] MEDS: BUDESONIDE/FORMETEROL FUMARATE 160/4.5 mcg INHALER IH SCH ×2 (09:32→21:11)
[2017-07-11] MEDS ORDERED: SODIUM CHLORIDE NASAL SPRAY 44 ML BOTTLE NS PRN (09:59)
--- NOTE | 2017-07-11 10:00 | PN ---
Progress Note (short form) - Note Progress Note: Dr. Tucker to document today. Daughter worried about orthostatic changes now that she is on Cardizem for SVT and BYP trending lower; will add PT
[2017-07-11] MEDS: ALBUTEROL SO4 2.5/IPRATROPIUM 0.5 INH SOL 3 ML VIAL.NEB. NEB SCH ×2 (10:12→21:37)
--- NOTE | 2017-07-11 11:09 | PN ---
Progress Note, Physician History of Present Illness: PULMONARY ALERT,FEELING JOHN,LESS DYSPNEIC - Current Medication List Current Medications: Active Medications Albuterol/Ipratropium (Duoneb -) 1 amp NEB Q6H PRN PRN Reason: SHORTNESS OF BREATH Last Admin: 07/11/17 06:28 Dose: 1 amp Albuterol/Ipratropium (Duoneb -) 1 amp NEB BID [facility] Last Admin: 07/11/17 10:12 Dose: 1 amp Aspirin (Asa -) 81 mg PO Q2D [facility] Last Admin: 07/11/17 09:30 Dose: 81 mg Atorvastatin Calcium (Lipitor -) 20 mg PO HS [facility] Last Admin: 07/10/17 21:32 Dose: 20 mg Budesonide/Formoterol Fumarate (Symbicort 160/4.5mcg -) 1 puff IH BID [facility] Last Admin: 07/11/17 09:32 Dose: 1 puff Diltiazem HCl (Cardizem Cd -) 120 mg PO DAILY [facility] Last Admin: 07/11/17 09:30 Dose: 120 mg Escitalopram Oxalate (Lexapro -) 15 mg PO DAILY [facility] Last Admin: 07/11/17 09:30 Dose: 15 mg Metoprolol Tartrate (Lopressor Injection -) 5 mg IVPUSH Q4H PRN PRN Reason: TACHYCARDIA Montelukast Sodium (Singulair -) 10 mg PO HS [facility] Last Admin: 07/10/17 21:32 Dose: 10 mg Roflumilast (Daliresp -) 500 mcg PO DAILY [facility] Last Admin: 07/11/17 09:30 Dose: 500 mcg Sodium Chloride (Normal Saline For Inhalation -) 3 ml IH Q6H PRN PRN Reason: ASTHMA Sodium Chloride ([place] Nasal [place] -) 2 spray NS TID PRN PRN Reason: NASAL CONGESTION - Objective Vital Signs: Vital Signs Temperature 97.6 F 07/11/17 01:52 Pulse Rate 95 H 07/11/17 06:24 Respiratory Rate 20 07/11/17 06:24 Blood Pressure 149/74 07/11/17 06:24 O2 Sat by Pulse Oximetry (%) 95 07/10/17 22:00 Constitutional: Yes: Calm, Thin Eyes: Yes: WNL HENT: Yes: WNL Neck: Yes: WNL Cardiovascular: Yes: Regular Rate and Rhythm, S1, S2 Respiratory: Yes: Diminished Gastrointestinal: Yes: Normal Bowel Sounds, Soft Extremities: Yes: WNL Edema: No Labs: CBC, BMP 07/11/17 06:25 07/11/17 06:25 INR, PTT INR 1.06 (0.82-1.09) 07/07/17 12:44 Assessment/Plan (1) COPD (chronic obstructive pulmonary disease) Code(s): J44.9 - CHRONIC OBSTRUCTIVE PULMONARY DISEASE, UNSPECIFIED Qualifiers: COPD type: unspecified COPD Qualified Code(s): J44.9 - Chronic obstructive pulmonary disease, unspecified (2) HLD (hyperlipidemia) Code(s): E78.5 - HYPERLIPIDEMIA, UNSPECIFIED (3) HTN (hypertension) Code(s): I10 - ESSENTIAL (PRIMARY) HYPERTENSION (4) Palpitations Code(s): R00.2 - PALPITATIONS (5) Hypoxia Code(s): R09.02 - HYPOXEMIA Assessment/Plan 02 TO KEEP SAT GREATER THAN 90% ISAAC/LABA/ICS/JAZMYN/ IV STEROIDS ENCOURAGE SMOKING CESATION DVT/PUD PROPHYLAXSIS F/U CT CHEST OUTPATIENT FOR RUL PLEURAL BASED DENSITY CONSIDER OUTPATIENT PULMONARY REHAB POST DISCHARGE DR MONGE Problem List - Problems (1) COPD (chronic obstructive pulmonary disease) Code(s): J44.9 - CHRONIC OBSTRUCTIVE PULMONARY DISEASE, UNSPECIFIED Qualifiers: COPD type: unspecified COPD Qualified Code(s): J44.9 - Chronic obstructive pulmonary disease, unspecified (2) HLD (hyperlipidemia) Code(s): E78.5 - HYPERLIPIDEMIA, UNSPECIFIED (3) HTN (hypertension) Code(s): I10 - ESSENTIAL (PRIMARY) HYPERTENSION (4) Palpitations Code(s): R00.2 - PALPITATIONS (5) Hypoxia Code(s): R09.02 - HYPOXEMIA
--- NOTE | 2017-07-11 11:47 | CONSULT ---
Consult - text type - Consultation Consultation Note: Podiatry Consultation: Pleasant 82 year old F admitted for rapid heart rate, SOB, podiatry consultation requested for trimming of toe nails. Denies F/V/N/C/SOB/CP. Afebrile, VSS. PMHx: COPD, emphysema (home oxygen dependent), bronchitis, chronic UTIs, hysterectomy, cataract surgery, ureteral repair, mild cognitive impairment, hypertension, orthostatic hypotension and hyperlipidemia Meds: noted ALL: levaquin, PDN ASHLEY: Pedal pulses palpable, TG wnl, CFT brisk to all toes. Nails are elongated, discolored, brittle, thickened with subungual debris x 10. NO nail bed ulcers, no signs of active infection. Imp: 82 year old F with onychomycosis x 10 1. Manual debridement of mycotic nails x 10 with nail nipper. Patient tolerated procedure well. 2. Appropriate foot hygiene discussed. 3. Can f/u in wound healing center for routine care. [phone] Floresita Bartlett DPM
[2017-07-11] MEDS: POLYETHYLENE GLYCOL 3350 119 GM BTL PO SCH (12:34)
--- NOTE | 2017-07-11 13:19 | PN ---
Progress Note, Physician Chief Complaint: Ms Casillas had an episode where she was incredibly short of breath this morning. It resolved after she had a breathing treatment. No cp, sob, n/v. - Current Medication List Current Medications: Active Medications Albuterol/Ipratropium (Duoneb -) 1 amp NEB Q6H PRN PRN Reason: SHORTNESS OF BREATH Last Admin: 07/11/17 06:28 Dose: 1 amp Albuterol/Ipratropium (Duoneb -) 1 amp NEB BID [facility] Last Admin: 07/11/17 10:12 Dose: 1 amp Aspirin (Asa -) 81 mg PO Q2D [facility] Last Admin: 07/11/17 09:30 Dose: 81 mg Atorvastatin Calcium (Lipitor -) 20 mg PO HS [facility] Last Admin: 07/10/17 21:32 Dose: 20 mg Budesonide/Formoterol Fumarate (Symbicort 160/4.5mcg -) 1 puff IH BID [facility] Last Admin: 07/11/17 09:32 Dose: 1 puff Diltiazem HCl (Cardizem Cd -) 120 mg PO DAILY [facility] Last Admin: 07/11/17 09:30 Dose: 120 mg Escitalopram Oxalate (Lexapro -) 15 mg PO DAILY [facility] Last Admin: 07/11/17 09:30 Dose: 15 mg Metoprolol Tartrate (Lopressor Injection -) 5 mg IVPUSH Q4H PRN PRN Reason: TACHYCARDIA Montelukast Sodium (Singulair -) 10 mg PO HS [facility] Last Admin: 07/10/17 21:32 Dose: 10 mg Polyethylene Glycol (Miralax (For Daily Use) -) 17 gm PO DAILY [facility] Last Admin: 07/11/17 12:34 Dose: 17 gm Roflumilast (Daliresp -) 500 mcg PO DAILY [facility] Last Admin: 07/11/17 09:30 Dose: 500 mcg Sodium Chloride (Normal Saline For Inhalation -) 3 ml IH Q6H PRN PRN Reason: ASTHMA Sodium Chloride ([place] Nasal [place] -) 2 spray NS TID PRN PRN Reason: NASAL CONGESTION - Objective Vital Signs: Vital Signs Temperature 36.6 C 07/11/17 10:00 Pulse Rate 98 H 07/11/17 10:00 Respiratory Rate 20 07/11/17 10:00 Blood Pressure 116/48 07/11/17 10:00 O2 Sat by Pulse Oximetry (%) 95 07/10/17 22:00 Constitutional: Yes: No Distress, Calm, Thin Cardiovascular: Yes: Pulse Irregular. No: Regular Rate and Rhythm, Tachycardia , Gallop, Murmur, Rub Respiratory: Yes: Regular, On Nasal O2, Wheezes (slight). No: CTA Bilaterally, Rales, Rhonchi Gastrointestinal: Yes: Normal Bowel Sounds, Soft. No: Distention, Tenderness Extremities: Yes: WNL Edema: No Labs: CBC, BMP 07/11/17 06:25 07/11/17 06:25 INR, PTT INR 1.06 (0.82-1.09) 07/07/17 12:44 Problem List - Problems (1) COPD (chronic obstructive pulmonary disease) Code(s): J44.9 - CHRONIC OBSTRUCTIVE PULMONARY DISEASE, UNSPECIFIED Qualifiers: COPD type: unspecified COPD Qualified Code(s): J44.9 - Chronic obstructive pulmonary disease, unspecified (2) Hypoxia Code(s): R09.02 - HYPOXEMIA (3) Palpitations Code(s): R00.2 - PALPITATIONS (4) HLD (hyperlipidemia) Code(s): E78.5 - HYPERLIPIDEMIA, UNSPECIFIED (5) HTN (hypertension) Code(s): I10 - ESSENTIAL (PRIMARY) HYPERTENSION Assessment/Plan (1) COPD (chronic obstructive pulmonary disease) Assessment/Plan: -much improved -however had episode of acute dyspnea this am -monitor today -continue current regimen -continuous home oxygen -possible discharge tomorrow Code(s): J44.9 - CHRONIC OBSTRUCTIVE PULMONARY DISEASE, UNSPECIFIED Qualifiers: COPD type: unspecified COPD Qualified Code(s): J44.9 - Chronic obstructive pulmonary disease, unspecified (2) Hypoxia Assessment/Plan: -as above Code(s): R09.02 - HYPOXEMIA (3) Palpitations Assessment/Plan: -cardiology following -continue diltiazem Code(s): R00.2 - PALPITATIONS (4) HLD (hyperlipidemia) Assessment/Plan: -continue statin Code(s): E78.5 - HYPERLIPIDEMIA, UNSPECIFIED (5) HTN (hypertension) Assessment/Plan: -controlled on diltiazem Code(s): I10 - ESSENTIAL (PRIMARY) HYPERTENSION (6) Hydronephrosis -noted on CT chest -will obtain renal ultrasound
--- NOTE | 2017-07-11 13:20 | PN ---
Progress Note (short form) - Note Progress Note: CC: tachycardia/svt S: feels well. no dizziness, cp, palps. sob at baseline. brief episode of sob this morning that resolved with neb tx. Current Medications Albuterol/Ipratropium (Duoneb -) 1 amp NEB Q6H PRN PRN Reason: SHORTNESS OF BREATH Last Admin: 07/11/17 06:28 Dose: 1 amp Albuterol/Ipratropium (Duoneb -) 1 amp NEB BID [facility] Last Admin: 07/11/17 10:12 Dose: 1 amp Aspirin (Asa -) 81 mg PO Q2D [facility] Last Admin: 07/11/17 09:30 Dose: 81 mg Atorvastatin Calcium (Lipitor -) 20 mg PO HS [facility] Last Admin: 07/10/17 21:32 Dose: 20 mg Budesonide/Formoterol Fumarate (Symbicort 160/4.5mcg -) 1 puff IH BID [facility] Last Admin: 07/11/17 09:32 Dose: 1 puff Diltiazem HCl (Cardizem Cd -) 120 mg PO DAILY [facility] Last Admin: 07/11/17 09:30 Dose: 120 mg Escitalopram Oxalate (Lexapro -) 15 mg PO DAILY [facility] Last Admin: 07/11/17 09:30 Dose: 15 mg Metoprolol Tartrate (Lopressor Injection -) 5 mg IVPUSH Q4H PRN PRN Reason: TACHYCARDIA Montelukast Sodium (Singulair -) 10 mg PO HS [facility] Last Admin: 07/10/17 21:32 Dose: 10 mg Polyethylene Glycol (Miralax (For Daily Use) -) 17 gm PO DAILY [facility] Last Admin: 07/11/17 12:34 Dose: 17 gm Roflumilast (Daliresp -) 500 mcg PO DAILY [facility] Last Admin: 07/11/17 09:30 Dose: 500 mcg Sodium Chloride (Normal Saline For Inhalation -) 3 ml IH Q6H PRN PRN Reason: ASTHMA Sodium Chloride ([place] Nasal [place] -) 2 spray NS TID PRN PRN Reason: NASAL CONGESTION Vital Signs - 24 hr 07/10/17 07/10/17 07/10/17 14:00 18:00 21:00 Temperature 98.2 F 98.2 F Pulse Rate 88 82 Respiratory 20 20 20 Rate Blood Pressure 105/50 116/51 O2 Sat by Pulse 96 Oximetry (%) 07/10/17 07/11/17 07/11/17 22:00 01:52 06:24 Temperature 97.7 F 97.6 F Pulse Rate 85 91 H 95 H Respiratory 20 20 20 Rate Blood Pressure 114/62 138/83 149/74 O2 Sat by Pulse 95 Oximetry (%) 07/11/17 10:00 Temperature 98 F Pulse Rate 98 H Respiratory 20 Rate Blood Pressure 116/48 O2 Sat by Pulse Oximetry (%) Intake & Output 07/09/17 07/10/17 07/11/17 07/12/17 07:59 07:59 07:59 07:59 Intake Total 315 30 210 Balance 315 30 210 Weight 96 lb nad, calm, thin jvd flat, neck supple diminished air mov't, trace rales, nl effort rrr nl s1, s2 no mrg + bs soft nt nd, no hsm ext with trace-1+ soft edema diminished dp/pt aaox3 no jaundice, diaphoresis CBC, BMP 07/11/17 06:25 07/11/17 06:25 Laboratory Tests 07/07/17 07/09/17 07/11/17 12:44 06:00 06:25 Magnesium 2.1 B-Natriuretic Peptide 667.35 H 218.51 EKG 06/2017: baseline artifact. sr, 95 bpm. LAE. ?anterolateral q's, poor r wave progression. anterior twi. similar to priors. tele: SR, pac's, pvc's echo 06/2017: Nl lv fn.(size not mentioned) Nl rv size/fn. mod mr. CT/Chest CTA images and report reviewed - No PE. Interval dev'p of a 4x3x2 cm subpleural opacity (infiltrate vs. atelectasis, less likely neoplasm) in posterior RUL. Dilated pulmonary artery. Moderate centribular empysema. Mucosal secretions adherent to simental of trachea consistent with chronic bronchitis. small rt pleural effusion with assoc compressive atelectasis. Kidneys with bilateral hydronephrosis. Partial imaging of a 0.9x0.2cm left renal cortical focus is seen possibly representing a non obstructing calculus ( versus contrast material) vascular study is negative for a DVT, bilaterally. 82 yo former smoker (recently quit) with PMH of emphysema (on 3L home O2 nightly), HTN, hyperlipidemia, orthostatic hypotension, and mild cognitive impairment who p/w palpitations/tachycardia in setting of hypoxia. tachycardia in setting of hypoxia, intermittent runs of SVT on tele. - likely exacerbated by hypoxia in setting of removing oxygen. patient O2 dependent, but uses prn during the day. - no PE/DVT on imaging. tsh wnl, k, mg close to goal of > 4.0 and > 2.0 respectively. - echo with mod mr. SILVA's neg x 3. EKG without acute ischemic changes. No signs of ACS. - check orthostatic vitals. - patient with new subpleural RUL opacity. discussed with pmd, currently no signs of infection, con't to monitor. Eval/mgm't of opacity per pmd/pulm. - Frequent runs of brief SVT on tele. 07/09: Started on Cardizem 120mg. Will monitor for PSVT suppresion. 07/10: Tolerating Cardizem 120mg. Continue for now. Has crackles in bilateral bases, likely 2/2 underlying lung disease. Reepat BNP normalized. - 07/11: repeat orthostatics negative. no dizziness/lightheadeness on current dilt dose and no recurrence of svt. con't current dose. HTN/LE edema - sbp's recently running low. Med changes as above. - Off HCTZ for LE edema, now on dilt for svt suppression. LE edema stable. -07/09-07/11: Ordered SCD hyponatremia - appears to be chronic based on prior inpatient labs. - monitor for improvement off of hctz. 07/10-07/11: Na improving
[2017-07-11] MEDS: MONTELUKAST NA 10 MG TABLET PO SCH (21:10)
[2017-07-11] MEDS: ATORVASTATIN CA 20 MG TABLET (FP) PO SCH (21:10)
[2017-07-12 08:03] LABS: BASO % 0.4 % (0-2.0); EOS % 5.3 % (0-4.5); HEMATOCRIT 36.1 % (32.4-45.2); HEMOGLOBIN 12.2 GM/dL (10.7-15.3); LYMPH % 27.5 % (8-40); MCHC 33.7 g/dl (32.0-36.0); MEAN PLT VOLUME 6.4 fl (7.5-11.1); MONO % 9.4 % (3.8-10.2); NEUT % 57.4 % (42.8-82.8); PLATELET COUNT 227 K/MM3 (134-434); RBC 4.05 M/mm3 (3.60-5.2); RDW 14.1 % (11.6-15.6); WHITE BLOOD COUNT 6.2 K/mm3 (4.0-10.0)
[2017-07-12 08:23] LABS: CHLORIDE 95 mmol/L (98-107); POTASSIUM 4.9 mmol/L (3.5-5.1); SODIUM 134 mmol/L (136-145)
[2017-07-12] MEDS: ALBUTEROL SO4 2.5/IPRATROPIUM 0.5 INH SOL 3 ML VIAL.NEB. NEB SCH (09:00)
[2017-07-12 09:14] LABS: ANION GAP 6 (8-16); BLOOD UREA NITROGEN 10 mg/dL (7-18); CALCIUM 8.5 mg/dL (8.5-10.1); CO2 33 mmol/L (21-32); CREATININE 0.4 mg/dL (0.55-1.02); GLUCOSE,RANDOM 87 mg/dL (74-106); MAGNESIUM 2.2 mg/dL (1.8-2.4); PHOSPHOROUS 3.2 mg/dL (2.5-4.9)
[2017-07-12] MEDS ORDERED: PT OWN MED DRAWER 7, Y5N ONE (09:24)
[2017-07-12] MEDS: BUDESONIDE/FORMETEROL FUMARATE 160/4.5 mcg INHALER IH SCH (10:14)
[2017-07-12] MEDS: ROFLUMILAST 500 MCG TABLET PO SCH (10:14)
[2017-07-12] MEDS: ESCITALOPRAM OXALATE 10 MG TABLET (FP) PO SCH (10:14)
[2017-07-12] MEDS: POLYETHYLENE GLYCOL 3350 119 GM BTL PO SCH (10:15)
--- NOTE | 2017-07-12 10:38 | PN ---
Progress Note, Physician History of Present Illness: PULMONARY ALERT,FEELING BETTER,COMFORTABLE,DYSPNEA IMPROVED,-CP,-COUGH - Current Medication List Current Medications: Active Medications Albuterol/Ipratropium (Duoneb -) 1 amp NEB Q6H PRN PRN Reason: SHORTNESS OF BREATH Last Admin: 07/11/17 06:28 Dose: 1 amp Albuterol/Ipratropium (Duoneb -) 1 amp NEB BID [facility] Last Admin: 07/12/17 09:00 Dose: 1 amp Aspirin (Asa -) 81 mg PO Q2D [facility] Last Admin: 07/11/17 09:30 Dose: 81 mg Atorvastatin Calcium (Lipitor -) 20 mg PO HS [facility] Last Admin: 07/11/17 21:10 Dose: 20 mg Budesonide/Formoterol Fumarate (Symbicort 160/4.5mcg -) 1 puff IH BID [facility] Last Admin: 07/12/17 10:14 Dose: 1 puff Diltiazem HCl (Cardizem Cd -) 120 mg PO DAILY [facility] Last Admin: 07/12/17 10:14 Dose: 120 mg Escitalopram Oxalate (Lexapro -) 15 mg PO DAILY [facility] Last Admin: 07/12/17 10:14 Dose: 15 mg Metoprolol Tartrate (Lopressor Injection -) 5 mg IVPUSH Q4H PRN PRN Reason: TACHYCARDIA Montelukast Sodium (Singulair -) 10 mg PO HS [facility] Last Admin: 07/11/17 21:10 Dose: 10 mg Polyethylene Glycol (Miralax (For Daily Use) -) 17 gm PO DAILY [facility] Last Admin: 07/12/17 10:15 Dose: Not Given Roflumilast (Daliresp -) 500 mcg PO DAILY [facility] Last Admin: 07/12/17 10:14 Dose: 500 mcg Sodium Chloride (Normal Saline For Inhalation -) 3 ml IH Q6H PRN PRN Reason: ASTHMA Sodium Chloride ([place] Nasal [place] -) 2 spray NS TID PRN PRN Reason: NASAL CONGESTION - Objective Vital Signs: Vital Signs Temperature 97.6 F 07/12/17 05:51 Pulse Rate 85 07/12/17 06:39 Respiratory Rate 18 07/12/17 05:51 Blood Pressure 139/69 07/12/17 06:39 O2 Sat by Pulse Oximetry (%) 92 L 07/11/17 20:14 Constitutional: Yes: Calm, Thin Eyes: Yes: WNL HENT: Yes: WNL Neck: Yes: WNL Cardiovascular: Yes: Regular Rate and Rhythm, S1, S2 Respiratory: Yes: Diminished Gastrointestinal: Yes: Normal Bowel Sounds, Soft Extremities: Yes: WNL Edema: No Labs: CBC, BMP 07/12/17 06:20 07/12/17 06:20 INR, PTT INR 1.06 (0.82-1.09) 07/07/17 12:44 Assessment/Plan (1) COPD (chronic obstructive pulmonary disease) Code(s): J44.9 - CHRONIC OBSTRUCTIVE PULMONARY DISEASE, UNSPECIFIED Qualifiers: COPD type: unspecified COPD Qualified Code(s): J44.9 - Chronic obstructive pulmonary disease, unspecified (2) HLD (hyperlipidemia) Code(s): E78.5 - HYPERLIPIDEMIA, UNSPECIFIED (3) HTN (hypertension) Code(s): I10 - ESSENTIAL (PRIMARY) HYPERTENSION (4) Palpitations Code(s): R00.2 - PALPITATIONS (5) Hypoxia Code(s): R09.02 - HYPOXEMIA Assessment/Plan 02 TO KEEP SAT GREATER THAN 90% ISAAC/LABA/ICS/JAZMYN/ DVT/PUD PROPHYLAXSIS F/U CT CHEST OUTPATIENT FOR RUL PLEURAL BASED DENSITY OUTPATIENT PULMONARY REHAB DR MONGE Problem List - Problems (1) COPD (chronic obstructive pulmonary disease) Code(s): J44.9 - CHRONIC OBSTRUCTIVE PULMONARY DISEASE, UNSPECIFIED Qualifiers: COPD type: unspecified COPD Qualified Code(s): J44.9 - Chronic obstructive pulmonary disease, unspecified (2) HLD (hyperlipidemia) Code(s): E78.5 - HYPERLIPIDEMIA, UNSPECIFIED (3) HTN (hypertension) Code(s): I10 - ESSENTIAL (PRIMARY) HYPERTENSION (4) Palpitations Code(s): R00.2 - PALPITATIONS (5) Hypoxia Code(s): R09.02 - HYPOXEMIA
--- NOTE | 2017-07-12 12:38 | CON.GU ---
Consult Consult Specialty:: Urology Reason for Consultation:: Hydronephrosis - History of Present Illness Chief Complaint: Hydronephrosis - History Source History Provided By: Significant Other, Medical Record - Past Medical History DIRECTOR OF MEDICAL EDUCATION: Yes: Dementia Cardio/Vascular: Yes: HTN Pulmonary: Yes: COPD - Alcohol/Substance Use Hx Alcohol Use: No - Smoking History Smoking history: Current every day smoker Have you smoked in the past 12 months: No Aproximately how many cigarettes per day: 5 If you are a former smoker, when did you quit?: 2017 - Social History History of Recent Travel: No Home Medications - Allergies Allergies/Adverse Reactions: Allergies Allergy/AdvReac Type Severity Reaction Status Date / Time levofloxacin [From Levaquin] Allergy Verified 12/13/16 10:45 prednisone AdvReac Verified 12/13/16 10:45 - Home Medications Home Medications: Ambulatory Orders Albuterol Sulfate [Proair Respiclick] 90 mcg IH BID 12/13/16 Aspirin [ASA -] 81 mg PO Q2D 12/13/16 Budesonide/Formeterol Fumarate [SYMBICORT 160/4.5mcg -] 1 inh PO BID 12/13/16 Calcium Carbonate/Vitamin D3 [Calcium 500-Vit D3 600 Tablet] 1 each PO DAILY Escitalopram Oxalate [Lexapro -] 15 mg PO DAILY 12/13/16 Hydrochlorothiazide [Hctz -] 12.5 mg PO DAILY 12/13/16 Magnesium 1 tab PO TID 12/13/16 Montelukast Na [Singulair -] 10 mg PO HS 12/13/16 Multivit-Min/Iron Fum/Folic AC [Kzfne-Rqrmqlt-Guhlukcr Tablet] 1 tab PO DAILY Nicotine Patch [Nicoderm Patch -] 21 mg TD DAILY #14 patch 12/16/16 Roflumilast [Daliresp -] 500 mcg PO DAILY #30 tablet 12/16/16 Tiotropium [place] [Spiriva] 1 inh IH DAILY #1 inh 12/16/16 Atorvastatin Ca [Lipitor] 20 mg PO HS 07/07/17 Roflumilast [Daliresp] 500 mcg PO DAILY 07/07/17 Tiotropium [place] [Spiriva] 1 inh IH DAILY 07/07/17 Physical Exam- Vital Signs: Vital Signs Temperature 98 F 07/12/17 10:00 Pulse Rate 88 07/12/17 10:00 Respiratory Rate 18 07/12/17 10:00 Blood Pressure 116/62 07/12/17 10:00 O2 Sat by Pulse Oximetry (%) 92 L 07/11/17 20:14 Labs: CBC, BMP 07/12/17 06:20 07/12/17 06:20 Imaging - Results Cat Scan: Report Reviewed Assessment/Plan 82 yo female improving overall condition w poss dilation of left renal pelvis CR nl urine clean Likely clinically insignifigant would perform CT urogram to R/O obstruction if clinically indicated
--- NOTE | 2017-07-12 12:51 | PN ---
Progress Note (short form) - Note Progress Note: Dr. bowie to document today.
--- NOTE | 2017-07-12 15:11 | PN ---
Progress Note (short form) - Note Progress Note: CC: tachycardia/svt S: feels well. no dizziness, cp, palps. sob at baseline. brief episode of sob this morning that resolved with neb tx. Current Medications Albuterol/Ipratropium (Duoneb -) 1 amp NEB Q6H PRN PRN Reason: SHORTNESS OF BREATH Last Admin: 07/11/17 06:28 Dose: 1 amp Albuterol/Ipratropium (Duoneb -) 1 amp NEB BID [facility] Last Admin: 07/12/17 09:00 Dose: 1 amp Aspirin (Asa -) 81 mg PO Q2D [facility] Last Admin: 07/11/17 09:30 Dose: 81 mg Atorvastatin Calcium (Lipitor -) 20 mg PO HS [facility] Last Admin: 07/11/17 21:10 Dose: 20 mg Budesonide/Formoterol Fumarate (Symbicort 160/4.5mcg -) 1 puff IH BID [facility] Last Admin: 07/12/17 10:14 Dose: 1 puff Diltiazem HCl (Cardizem Cd -) 120 mg PO DAILY [facility] Last Admin: 07/12/17 10:14 Dose: 120 mg Escitalopram Oxalate (Lexapro -) 15 mg PO DAILY [facility] Last Admin: 07/12/17 10:14 Dose: 15 mg Metoprolol Tartrate (Lopressor Injection -) 5 mg IVPUSH Q4H PRN PRN Reason: TACHYCARDIA Montelukast Sodium (Singulair -) 10 mg PO HS [facility] Last Admin: 07/11/17 21:10 Dose: 10 mg Polyethylene Glycol (Miralax (For Daily Use) -) 17 gm PO DAILY [facility] Last Admin: 07/12/17 10:15 Dose: Not Given Roflumilast (Daliresp -) 500 mcg PO DAILY [facility] Last Admin: 07/12/17 10:14 Dose: 500 mcg Sodium Chloride (Normal Saline For Inhalation -) 3 ml IH Q6H PRN PRN Reason: ASTHMA Sodium Chloride ([place] Nasal [place] -) 2 spray NS TID PRN PRN Reason: NASAL CONGESTION Vital Signs - 24 hr 07/11/17 07/11/17 07/11/17 17:00 20:13 20:14 Temperature 98.0 F 97.8 F Pulse Rate 79 80 Pulse Rate [ Left side Sitting] Pulse Rate [ Left side Standing] Pulse Rate [ Supine] Respiratory 18 18 Rate Blood Pressure 126/60 108/59 Blood Pressure [Left side Sitting] Blood Pressure [Left side Standing] Blood Pressure [Supine] O2 Sat by Pulse 92 L 92 L Oximetry (%) 07/12/17 07/12/17 07/12/17 02:23 05:51 06:39 Temperature 97.8 F 97.6 F Pulse Rate 81 87 Pulse Rate [ 85 Left side Sitting] Pulse Rate [ 89 Left side Standing] Pulse Rate [ 115 H Supine] Respiratory 20 18 Rate Blood Pressure 108/59 152/71 Blood Pressure 139/69 [Left side Sitting] Blood Pressure 123/70 [Left side Standing] Blood Pressure 137/88 [Supine] O2 Sat by Pulse Oximetry (%) 07/12/17 07/12/17 09:00 10:00 Temperature 98 F Pulse Rate 88 Pulse Rate [ Left side Sitting] Pulse Rate [ Left side Standing] Pulse Rate [ Supine] Respiratory 18 Rate Blood Pressure 116/62 Blood Pressure [Left side Sitting] Blood Pressure [Left side Standing] Blood Pressure [Supine] O2 Sat by Pulse 94 L 94 L Oximetry (%) Intake & Output 07/10/17 07/11/17 07/12/17 07/13/17 07:59 07:59 07:59 07:59 Intake Total 30 210 370 Balance 30 210 370 nad, calm, thin jvd flat, neck supple diminished air mov't, trace rales, nl effort rrr nl s1, s2 no mrg + bs soft nt nd, no hsm ext with trace-1+ soft edema diminished dp/pt aaox3 no jaundice, diaphoresis CBC, BMP 07/12/17 06:20 07/12/17 06:20 EKG 06/2017: baseline artifact. sr, 95 bpm. LAE. ?anterolateral q's, poor r wave progression. anterior twi. similar to priors. tele: SR, pac's, pvc's echo 06/2017: Nl lv fn.(size not mentioned) Nl rv size/fn. mod mr. CT/Chest CTA images and report reviewed - No PE. Interval dev'p of a 4x3x2 cm subpleural opacity (infiltrate vs. atelectasis, less likely neoplasm) in posterior RUL. Dilated pulmonary artery. Moderate centribular empysema. Mucosal secretions adherent to simental of trachea consistent with chronic bronchitis. small rt pleural effusion with assoc compressive atelectasis. Kidneys with bilateral hydronephrosis. Partial imaging of a 0.9x0.2cm left renal cortical focus is seen possibly representing a non obstructing calculus ( versus contrast material) vascular study is negative for a DVT, bilaterally. 82 yo former smoker (recently quit) with PMH of emphysema (on 3L home O2 nightly), HTN, hyperlipidemia, orthostatic hypotension, and mild cognitive impairment who p/w palpitations/tachycardia in setting of hypoxia. tachycardia in setting of hypoxia, intermittent runs of SVT on tele. - likely exacerbated by hypoxia in setting of removing oxygen. patient O2 dependent, but uses prn during the day. - no PE/DVT on imaging. tsh wnl, k, mg close to goal of > 4.0 and > 2.0 respectively. - echo with mod mr. SILVA's neg x 3. EKG without acute ischemic changes. No signs of ACS. - check orthostatic vitals. - patient with new subpleural RUL opacity. discussed with pmd, currently no signs of infection, con't to monitor. Eval/mgm't of opacity per pmd/pulm. - Frequent runs of brief SVT on tele. 07/09: Started on Cardizem 120mg. Will monitor for PSVT suppresion. 07/10: Tolerating Cardizem 120mg. Continue for now. Has crackles in bilateral bases, likely 2/2 underlying lung disease. Reepat BNP normalized. - 07/11: repeat orthostatics negative. no dizziness/lightheadeness on current dilt dose and no recurrence of svt. con't current dose. HTN/LE edema - sbp's recently running low. Med changes as above. - Off HCTZ for LE edema, now on dilt for svt suppression. LE edema stable. -07/09-07/11: Ordered SCD hyponatremia - appears to be chronic based on prior inpatient labs. - monitor for improvement off of hctz. 07/10-07/11: Na improving
--- NOTE | 2017-07-12 15:16 | DS ---
Physical Examination Vital Signs: Vital Signs Temperature 36.6 C 07/12/17 10:00 Pulse Rate 88 07/12/17 10:00 Respiratory Rate 18 07/12/17 10:00 Blood Pressure 116/62 07/12/17 10:00 O2 Sat by Pulse Oximetry (%) 94 L 07/12/17 10:00 Constitutional: Yes: Well Nourished, No Distress, Calm Cardiovascular: Yes: Regular Rate and Rhythm. No: Gallop, Murmur, Rub Respiratory: Yes: Regular, CTA Bilaterally. No: Rales, Rhonchi, Wheezes Gastrointestinal: Yes: Normal Bowel Sounds, Soft. No: Distention, Tenderness Extremities: Yes: WNL Edema: No Labs: CBC, BMP 07/12/17 06:20 07/12/17 06:20 Discharge Summary Reason For Visit: CHRONIC OBSTRUCTIVE PULMONARY DISEASE;PALPITATIONS Current Active Problems COPD (chronic obstructive pulmonary disease) (Acute) HLD (hyperlipidemia) (Acute) HTN (hypertension) (Acute) Palpitations (Acute) Hospital Course: (1) COPD (chronic obstructive pulmonary disease) Code(s): J44.9 - CHRONIC OBSTRUCTIVE PULMONARY DISEASE, UNSPECIFIED Qualifiers: COPD type: unspecified COPD Qualified Code(s): J44.9 - Chronic obstructive pulmonary disease, unspecified (2) Hypoxia Code(s): R09.02 - HYPOXEMIA (3) Palpitations Code(s): R00.2 - PALPITATIONS (4) HLD (hyperlipidemia) Code(s): E78.5 - HYPERLIPIDEMIA, UNSPECIFIED (5) HTN (hypertension) Code(s): I10 - ESSENTIAL (PRIMARY) HYPERTENSION (6) Hydronephrosis Ms Casillas is a pleasant 82 year old female who comes in with acute on chronic hypoxic respiratory failure secondary to progression of her COPD. She was found to have SVT and hypoxia. She was admitted to the hospital and placed on oxygen ( she wore oxygen at night at home but not during the day). She was seen by cardiology and pulmonary. She was not in COPD exacerbation but having progression of her disease causing the need for continuous oxygen. She was also changed from HCTZ to diltiazem for better control of her heart rate. She was noted to have hydronephrosis on her CT scan with PE protocol (which was negative ). She had a renal ultrasound that confirmed this. She was seen by urology and cleared. She is currently stable for discharge home with home VNS and continuous oxygen. She should follow up with outpatient pulmonary rehab. 34 minutes spent in preparation of this discharge. Condition: Stable - Instructions Diet, Activity, Other Instructions: Resume previous diet and activity. Home with oxygen, wear continuously. Referrals: Steven Rodney MD [Staff Physician] - Disposition: VNS/HOME HEALTH CARE - Home Medications Comprehensive Discharge Medication List: Ambulatory Orders Aspirin [ASA -] 81 mg PO Q2D 12/13/16 Budesonide/Formeterol Fumarate [SYMBICORT 160/4.5mcg -] 1 inh PO BID 12/13/16 Calcium Carbonate/Vitamin D3 [Calcium 500-Vit D3 600 Tablet] 1 each PO DAILY Escitalopram Oxalate [Lexapro -] 15 mg PO DAILY 12/13/16 Magnesium 1 tab PO TID 12/13/16 Montelukast Na [Singulair -] 10 mg PO HS 12/13/16 Multivit-Min/Iron Fum/Folic AC [Eloly-Fgtnwzf-Xitbcdxv Tablet] 1 tab PO DAILY Roflumilast [Daliresp -] 500 mcg PO DAILY #30 tablet 12/16/16 Tiotropium [place] [Spiriva] 1 inh IH DAILY #1 inh 12/16/16 Atorvastatin Ca [Lipitor] 20 mg PO HS 07/07/17 Roflumilast [Daliresp] 500 mcg PO DAILY 07/07/17 Tiotropium [place] [Spiriva] 1 inh IH DAILY 07/07/17 Albuterol 2.5/Ipratropium 0.5 [Duoneb -] 1 amp NEB Q6H PRN #30 amp 07/12/17 Diltiazem Cd [Cardizem Cd -] 120 mg PO DAILY #30 cap.cd.24h 07/12/17 Nebulizer and Compressor [[place] Choice Nebulizer] 1 each ASDIR #1 each 07/12
[2017-07-12 15:56] VITALS: BP 123/58; PULSE 84; TEMP 98.2
== END 2017-07-12 16:51 | disposition home health service (06) | DRG 189 ==
LOC: JER 11:56 → JERBED 18:33 → J4W 20:12
PROVIDERS: ADMIT Internal Medicine; ATTEND Internal Medicine
PROC: 3E0F7GC Introduction of Other Therapeutic Substance into Respiratory Tract, Via Natural or Artificial Opening (ICD-10-PCS; 2017-07-09)
PROC: 0HBRXZZ Excision of Toe Nail, External Approach (ICD-10-PCS; principal; 2017-07-11)
PROC: 0HBRXZZ Excision of Toe Nail, External Approach (ICD-10-PCS; 2017-07-11)
PROC: 0HBRXZZ Excision of Toe Nail, External Approach (ICD-10-PCS; 2017-07-11)
PROC: 0HBRXZZ Excision of Toe Nail, External Approach (ICD-10-PCS; 2017-07-11)
PROC: 0HBRXZZ Excision of Toe Nail, External Approach (ICD-10-PCS; 2017-07-11)
PROC: 0HBRXZZ Excision of Toe Nail, External Approach (ICD-10-PCS; 2017-07-11)
PROC: 0HBRXZZ Excision of Toe Nail, External Approach (ICD-10-PCS; 2017-07-11)
PROC: 0HBRXZZ Excision of Toe Nail, External Approach (ICD-10-PCS; 2017-07-11)
PROC: 0HBRXZZ Excision of Toe Nail, External Approach (ICD-10-PCS; 2017-07-11)
PROC: 0HBRXZZ Excision of Toe Nail, External Approach (ICD-10-PCS; 2017-07-11)
DX: J96.21 Acute and chronic respiratory failure with hypoxia (principal); E87.1 Hypo-osmolality and hyponatremia; N39.0 Urinary tract infection, site not specified; R64 Cachexia; Z68.1 Body mass index [BMI] 19.9 or less, adult; J98.11 Atelectasis; J90 Pleural effusion, not elsewhere classified; N13.2 Hydronephrosis with renal and ureteral calculous obstruction; I47.1 Supraventricular tachycardia; E78.5 Hyperlipidemia, unspecified; I10 Essential (primary) hypertension; R00.2 Palpitations; G31.84 Mild cognitive impairment of uncertain or unknown etiology; E86.0 Dehydration; B35.1 Tinea unguium; J44.9 Chronic obstructive pulmonary disease, unspecified; Z85.41 Personal history of malignant neoplasm of cervix uteri; Z87.891 Personal history of nicotine dependence; Z99.81 Dependence on supplemental oxygen
CPT/HCPCS: 36415; 71045-TC-FY; 71275-TC; 76775-TC; 80048; 80053; 80061; 81003; 81015; 82550; 83036; 83721; 83735; 83880; 84100; 84439; 84443; 84480; 84484; 85025; 85610; 87086; 93005; 93010; 93306-TC; 93970-TC; 94640; 97116-GP; 97161-GP; 99285-25; J7030

== ENCOUNTER 2017-08-06 18:26 | Inpatient (IN) | payer OTHER ==
[2017-08-06] MEDS ORDERED: ACETAMINOPHEN 1000 MG/100 ML VIAL (NON FORMULARY) IVPB ONE (18:54)
--- NOTE | 2017-08-06 19:07 | PDOC ---
History of Present Illness - General History Source: Patient, Family, Boat Hand Used Exam Limitations: No Limitations - History of Present Illness Initial Comments: 08/06/17 19:12 The patient is an 82 year old female with history of COPD on 3L supplemental O2 chronically, hypertension, cervical CA s/p full hysterectomy in the , who presents to the ED with family at bedside for shortness of breath and hypoxia noted today. Per the patient's daugher at bedside, the patient has had multiple recent hospital admissions (here at [facility] in June and [facility] 07/25-07/28). The daugher reports the patient has a visiting nurse at home who noticed the patient's condition was significantly worse today. This morning the patient was noted to have difficulty with breathing with blue tinted lips and O2 sat in the low 80s (recent baseline on supplemental O2 has been high 90s). The daughter also reports worsening bilateral lower extremity swelling (right>left) and complaints of chills, no measured fever at home. Patient and family members deny nausea, vomiting, or diarrhea. They do endorse chronic nonproductive cough and lower chest pain and epigastric pain. PCP: Dr. Rodney Agent Telegrapher: Dr. Bartholomew <Jessica Koroma - Last Filed: 08/06/17 20:45> <Janes Castellano - Last Filed: 08/06/17 21:28> - General Chief Complaint: Weakness Stated Complaint: WEAKNESS Time Seen by Provider: 08/06/17 18:37 Past History <Jessica Koroma - Last Filed: 08/06/17 20:45> - Past Medical History Cancer: Yes (cervical 1973) COPD: Yes (emphysema) Disorders: Yes (chronic UTIs) HTN: Yes - Surgical History Abdominal Surgery: (urinary track sx) - Immunization History Immunization Up to Date: Yes - Suicide/Smoking/Psychosocial Hx Smoking History: Former smoker Have you smoked in the past 12 months: No Number of Cigarettes Smoked Daily: 5 If you are a former smoker, when did you quit?: 2017 Information on smoking cessation initiated: No 'Breaking Loose' booklet given: 12/13/16 Hx Alcohol Use: No Drug/Substance Use Hx: No Substance Use Type: None <Janes Castellano - Last Filed: 08/06/17 21:28> - Past Medical History Allergies/Adverse Reactions: Allergies Allergy/AdvReac Type Severity Reaction Status Date / Time levofloxacin [From Levaquin] Allergy Verified 08/06/17 18:31 prednisone AdvReac Verified 08/06/17 18:31 Home Medications: Ambulatory Orders Acetaminophen 500 mg PO Q8H PRN 08/06/17 Alprazolam 0.25 mg PO Q8H PRN 08/06/17 Aspirin [ASA -] 81 mg PO DAILY 08/06/17 Budesonide/Formeterol Fumarate [SYMBICORT 160/4.5mcg -] 2 inh PO BID 08/06/17 Calcium Carbonate/Vitamin D3 [Calcium 600 + D3 Softgel] 1 each PO HS 08/06/17 Cefuroxime Axetil [Cefuroxime] 500 mg PO BID 08/06/17 Diltiazem HCl [Diltiazem ER] 120 mg PO HS 08/06/17 Escitalopram Oxalate [Lexapro -] 10 mg PO DAILY 08/06/17 Furosemide 20 mg PO DAILY PRN 08/06/17 Ipratropium/Albuterol Sulfate [Iprat-Albut 0.5-3(2.5) mg/3 ml] 3 ml IH Q6H PRN 08/06/17 Magnesium Oxide 500 mg PO DAILY 08/06/17 Montelukast Na [Singulair -] 10 mg PO HS 08/06/17 Roflumilast [Daliresp -] 500 mcg PO DAILY 08/06/17 Saccharomyces Boulardii [Florastor] 250 mg PO BID 08/06/17 Simvastatin 20 mg PO HS 08/06/17 Tiotropium [employer] [employer] [Spiriva] 1 inh PO DAILY 08/06/17 Review of Systems - Review of Systems Constitutional: Yes: Chills. No: Fever Respiratory: Yes: Cough, Shortness of Breath Cardiac (ROS): Yes: Edema. No: Chest Pain, Syncope ABD/GI: Yes: Constipated. No: Vomiting Neurological: No: Headache All Other Systems: Reviewed and Negative <Janes Castellano - Last Filed: 08/06/17 21:28> *Physical Exam - Vital Signs Last Vital Signs Temp Pulse Resp BP Pulse Ox 97.9 F 102 H 20 122/90 87 L 08/06/17 18:28 08/06/17 18:28 08/06/17 18:28 08/06/17 18:28 08/06/17 18:28 - Physical Exam Comments: 08/06/17 20:45 GENERAL: The patient is awake and alert. Eyes are closed. Cachectic, chronically ill appearing. HEAD: Normal with no signs of trauma. EYES: Pupils equal, round and reactive to light, extraocular movements intact, sclera anicteric, conjunctiva clear with no pallor. ENT: Ears normal, nares patent, oropharynx clear without exudates. Moist mucous membranes. NECK: Normal range of motion, supple without lymphadenopathy, JVD, or masses. LUNGS: Breath sounds equal, with end-inspiratory rhonchi at the right base. HEART: Regular rate and rhythm, normal S1 and S2 without murmur or rub. ABDOMEN: Soft/nontender/nondistended. BS wnl. No guarding or rebound. No palpable masses. No hepatosplenomegaly. EXTREMITIES: + 2 through 3 bilateral lower extremity edema, right>left. Normal range of motion. No clubbing or cyanosis. No cords, erythema, or tenderness. NEUROLOGICAL: Cranial nerves II through XII grossly intact. Normal speech, gait deferred. PSYCH: Deferred. SKIN: Warm, Dry, normal turgor. Scattered petechiae on the bilateral lower extremitiy. <Jessica Koroma - Last Filed: 08/06/17 20:45> - Vital Signs Last Vital Signs Temp Pulse Resp BP Pulse Ox 97.9 F 102 H 20 122/90 87 L 08/06/17 18:28 08/06/17 18:28 08/06/17 18:28 08/06/17 18:28 08/06/17 18:28 <Janes Castellano - Last Filed: 08/06/17 21:28> Heart Score/ECG Review #1 ECG reviewed & interpreted by me at: 18:52 General ECG Interpretation: Sinus Rhythm (PVCs noted), Normal Rate (99), Normal Intervals (qtc 449), No acute ischemic changes Compared to previous ECG there are: No significant change (07/07/17) <Janes Castellano - Last Filed: 08/06/17 21:28> ED Treatment Course - LABORATORY CBC & Chemistry Diagram: 08/06/17 19:17 08/06/17 19:17 <Jessica Koroma - Last Filed: 08/06/17 20:45> - LABORATORY CBC & Chemistry Diagram: 08/06/17 19:17 08/06/17 19:17 - RADIOLOGY Radiology Studies Ordered: Category Date Time Status CHEST X-RAY PORTABLE* [RAD] Stat Radiology 08/06/17 18:53 Ordered <Janes Castellano - Last Filed: 08/06/17 21:28> Medical Decision Making - Critical Care Time Total Critical Care Time (minutes): 70 Critical Care Statement: The care of this patient involved high complexity decision making to prevent further life threatening deterioration of the patient 's condition and/or to evaluate & treat vital organ system(s) failure or risk of failure. - Medical Decision Making 08/06/17 19:47 82-year-old female with advanced emphysema on 3 L home oxygen with VNS services in place, considerations for hospice care, DNR/DNI brought in by daughter for increased work of breathing over the last 2 days. Patient has been on her baseline oxygen but has become more tachypnea, more fatigued, and has had more difficulty breathing. Chills but no measured fevers, weak cough but no sputum, no vomiting or diarrhea. Afebrile here, tachypnea, O2 sat 80% on her baseline 3 L. Tachypnea, eyes closed, but responds to verbal and follows commands Trachea midline, no stridor Right basilar rhonchi, no wheezing Abdomen is soft/nondistended and nontender Bilateral leg swelling to the knees 82-year-old female with acute hypoxic respiratory failure, history of emphysema on home oxygen. Question progression of disease, rule out superimposed acute infectious process. Respiratory called and patient placed on high flow oxygen at 15 L and 50% FiO2 with marked improvement in her oxygen saturations at her baseline 94-96% and marked improvement in her mental status Discussed with patient and daughter (pt's HCP), patient is known DNR/DNI We'll check labs, check EKG. Part of patient's advanced directives is that she refuses steroids due to past adverse reactions. Will likely need admissionto assess home needs/oxygen requirements 08/06/17 20:15 White blood cell count 12.7, chemistries are otherwise within normal limits with normal creatinine, normal lactate, and normal troponin. On my preliminary review, ? lobar atelectasis on the Right? no clear consolidation or ptx but will repeat CXR - pt and family refusing CT because she won't lie flat. Pt remains clinically improved on high flow. Will proceed with admission, Dr. Herring called. 08/06/17 20:20 Accepted for inpatient tele by Dr. Herring. Dr. Bartholomew, pt's twisthand, consulted. 08/06/17 21:26 repeat CXR with ? RLL consolidation. Will broaden coverage to Vancomycin given recent admissions. Remains improved on high flow o2 with sat 98%. Awaiting bed placement. <Janes Castellano - Last Filed: 08/06/17 21:28> *DC/Admit/Observation/Transfer - Attestations Scribe Attestion: 08/06/17 19:39 Documentation prepared by Jessica Koroma, acting as medical scheduler for Janes Castellano MD. <Jessica Koroma - Last Filed: 08/06/17 20:45> - Discharge Dispostion Decision to Admit order: Yes <Janes Castellano - Last Filed: 08/06/17 21:28> Diagnosis at time of Disposition: Acute and chronic respiratory failure with hypoxia COPD (chronic obstructive pulmonary disease) Qualifiers: COPD type: emphysema Emphysema type: unspecified Qualified Code(s): J43.9 - Emphysema, unspecified - Discharge Dispostion Condition at time of disposition: Guarded
[2017-08-06 19:25] LABS: BASO % 0.8 % (0-2.0); EOS % 0.5 % (0-4.5); HEMATOCRIT 35.2 % (32.4-45.2); HEMOGLOBIN 11.7 GM/dL (10.7-15.3); LYMPH % 11.2 % (8-40); MCH 29.7 pg (25.7-33.7); MCHC 33.4 g/dl (32.0-36.0); MEAN PLT VOLUME 6.2 fl (7.5-11.1); MONO % 8.6 % (3.8-10.2); NEUT % 78.9 % (42.8-82.8); PLATELET COUNT 263 K/MM3 (134-434); RBC 3.95 M/mm3 (3.60-5.2); RDW 14.4 % (11.6-15.6); WHITE BLOOD COUNT 12.7 K/mm3 (4.0-10.0)
[2017-08-06 19:26] LABS: VENOUS PH 7.36 (7.32-7.42); VENOUS PO2 45.1 mmHg (28-48)
[2017-08-06 19:27] LABS: VENOUS PC02 72.1 mmHg (38-52)
[2017-08-06 19:42] LABS: INR 0.99 (0.82-1.09); PROTHROMBIN TIME (PATIENT) 11.2 SEC (9.7-13.0)
[2017-08-06 19:45] LABS: ACTIVATED PTT 32.6 SECONDS (25.2-36.5)
[2017-08-06] MEDS ORDERED: ACETAMINOPHEN INJECTION 100 ML IVPB ONE (19:53)
[2017-08-06 19:59] LABS: ALBUMIN 3.2 g/dl (3.4-5.0); ALK PHOS 50 U/L (45-117); BILIRUBIN,TOTAL 0.4 mg/dL (0.2-1.0); BLOOD UREA NITROGEN 23 mg/dL (7-18); CALCIUM 8.9 mg/dL (8.5-10.1); CO2 42 mmol/L (21-32); CREATININE 0.5 mg/dL (0.55-1.02); GLUCOSE,RANDOM 94 mg/dL (74-106); SGOT/AST 17 U/L (15-37); SGPT/ALT 29 U/L (12-78); TOT PROT 6.6 g/dl (6.4-8.2)
[2017-08-06 20:01] LABS: ANION GAP 3 (8-16); CHLORIDE 91 mmol/L (98-107); POTASSIUM 3.8 mmol/L (3.5-5.1); SODIUM 136 mmol/L (136-145)
[2017-08-06] MEDS ORDERED: CEFTRIAXONE 1,000 MG in DEXTROSE 5%-WATER - 50 ML IVPB ONE (20:14)
[2017-08-06] MEDS ORDERED: ACETAMINOPHEN 500 MG TABLET (FP) PO PRN (21:12)
[2017-08-06] MEDS ORDERED: ALPRAZolam 0.25 MG TABLET PO PRN ×2 (21:12→21:15)
[2017-08-06] MEDS ORDERED: FUROSEMIDE 20 MG TABLET (FP) PO PRN (21:12)
[2017-08-06] MEDS ORDERED: traMADol HCL 50 MG TABLET PO ONE (21:48)
[2017-08-06] MEDS ORDERED: ALPRAZolam 2 MG TABLET ONE (21:53)
[2017-08-06] MEDS ORDERED: traMADol HCL 50 MG TABLET ONE (21:53)
[2017-08-06] MEDS ORDERED: ATORVASTATIN CA 10 MG TABLET (FP) PO SCH (22:00)
[2017-08-06] MEDS ORDERED: PATIENT'S OWN MEDICATION (NON-FORMULARY) (Simvastatin [Simvastatin] 20 MG) PO SCH (22:00)
[2017-08-06] MEDS ORDERED: PATIENT'S OWN MEDICATION (NON-FORMULARY) (Diltiazem Hcl [Diltiazem 24hr Er] 120 MG) PO SCH (22:00)
[2017-08-06] MEDS ORDERED: MONTELUKAST NA 10 MG TABLET PO SCH (22:00)
[2017-08-06] MEDS ORDERED: CEFTRIAXONE 1 GM/50 ML BAG ONE (22:12)
--- NOTE | 2017-08-06 22:31 | HP ---
Admitting History and Physical - Admission Chief Complaint: shortness of breath History of Present Illness: 82 yo female, history of severe emphysema/ COPD, presents to hospital with worsened shortness of breath, desaturation at home. Patient was here in [facility] about 1 month ago, at that time with hypoxia and tachycardia, which corrected with oxygen use. Since that admission had been staying [facility] and went to hospital up there with shortness of breath, treated with prednisome and abx. Dtr notes increased agitation/ anxiety with prednisone, and with that admission went to [facility], receiving visiting nurse service there. With much noticable decline over past 2 days, patient advised to go back to hospital, but now insisted on coming down here to [place] (prefers [facility] to [facility]). Oxygen sat was in low 80's upon ED presentation, given high flow oxygen and abx (right infiltrate seen on CXR) and does note feeling somewhat better, oxygen saturation going into upper 90's now. Wants to go home. Dtr knows and feels patient knows as well, that likely this is end-stage COPD and would like comfort measures to take place. Dtr wants to honor mother's wishes and take her home, but knows without anything else set up at home for discomfort (only has oxygen at home) patient may have to come back to hospital later tonight, so agreeing to stay. 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 Cardiovascular: Yes: HTN, Other (tachycardia) Pulmonary: Yes: COPD - Smoking History Smoking history: Former smoker Have you smoked in the past 12 months: No Aproximately how many cigarettes per day: 5 If you are a former smoker, when did you quit?: 2017 - Alcohol/Substance Use Hx Alcohol Use: No - Social History History of Recent Travel: No Home Medications - Allergies Allergies/Adverse Reactions: Allergies Allergy/AdvReac Type Severity Reaction Status Date / Time levofloxacin [From Levaquin] Allergy Verified 08/06/17 18:31 prednisone AdvReac Verified 08/06/17 18:31 - Home Medications Home Medications: Ambulatory Orders Acetaminophen 500 mg PO Q8H PRN 08/06/17 Alprazolam 0.25 mg PO Q8H PRN 08/06/17 Aspirin [ASA -] 81 mg PO DAILY 08/06/17 Budesonide/Formeterol Fumarate [SYMBICORT 160/4.5mcg -] 2 inh PO BID 08/06/17 Calcium Carbonate/Vitamin D3 [Calcium 600 + D3 Softgel] 1 each PO HS 08/06/17 Cefuroxime Axetil [Cefuroxime] 500 mg PO BID 08/06/17 Diltiazem HCl [Diltiazem ER] 120 mg PO HS 08/06/17 Escitalopram Oxalate [Lexapro -] 10 mg PO DAILY 08/06/17 Furosemide 20 mg PO DAILY PRN 08/06/17 Ipratropium/Albuterol Sulfate [Iprat-Albut 0.5-3(2.5) mg/3 ml] 3 ml IH Q6H PRN 08/06/17 Magnesium Oxide 500 mg PO DAILY 08/06/17 Montelukast Na [Singulair -] 10 mg PO HS 08/06/17 Roflumilast [Daliresp -] 500 mcg PO DAILY 08/06/17 Saccharomyces [place] [Florastor] 250 mg PO BID 08/06/17 Simvastatin 20 mg PO HS 08/06/17 Tiotropium [place] [Spiriva] 1 inh PO DAILY 08/06/17 Family Disease History - Family Disease History Family History: Unremarkable Review of Systems - Review of Systems Constitutional: reports: Lethargy, Loss of Appetite, Weakness. denies: Chills, Fever Eyes: reports: No Symptoms HENT: denies: Difficult Swallowing, Epistaxis, Throat Pain Neck: denies: Decreased ROM, Pain on Movement, Tenderness Cardiovascular: denies: Chest Pain, Palpitations Respiratory: reports: SOB, SOB on Exertion, Wheezing Gastrointestinal: denies: Abdominal Pain, Bloating, Constipation, Diarrhea, Dysphagia, Melena, Nausea Genitourinary: denies: Burning, Discharge, Dysuria Physical Examination Vital Signs: Vital Signs Temperature 97.9 F 08/06/17 18:28 Pulse Rate 95 H 08/06/17 21:10 Respiratory Rate 24 08/06/17 19:02 Blood Pressure 121/80 08/06/17 18:40 O2 Sat by Pulse Oximetry (%) 97 08/06/17 21:10 Constitutional: Yes: Cachectic, Mild Distress (due to shortness of breath) Eyes: Yes: Conjunctiva Clear, EOM Intact, PERRL HENT: Yes: Atraumatic, Normocephalic Neck: Yes: Supple. No: Lymphadenopathy Cardiovascular: Yes: Regular Rate and Rhythm, S1, S2. No: Murmur Respiratory: Yes: Diminished (bilaterally) Gastrointestinal: Yes: Normal Bowel Sounds, Soft. No: Distention, Tenderness Edema: No Labs: CBC, BMP 08/06/17 19:17 08/06/17 19:17 Imaging - Results Chest X-ray: Image Reviewed (right base infiltrate) Problem List - Problems (1) Acute and chronic respiratory failure with hypoxia Assessment/Plan: -appears to be end-stage COPD -cont high-flow oxygen with breathing treatments, pulmonary evaluation -family interested in comfort care measures -will give morphine prn dose in case of air-hunger (reviewed with dtr, who had an aunt, the patient's sister, who required similar morphine with her end-stage COPD, so she was familiar with medication) -as wishing comfort care measures will d/c non-comfort medication currently to decrease pill burden Code(s): J96.21 - ACUTE AND CHRONIC RESPIRATORY FAILURE WITH HYPOXIA (2) COPD (chronic obstructive pulmonary disease) Assessment/Plan: -cont nebs,inhalers, oxygen Code(s): J44.9 - CHRONIC OBSTRUCTIVE PULMONARY DISEASE, UNSPECIFIED Qualifiers: COPD type: emphysema Emphysema type: unspecified Qualified Code(s): J43.9 - Emphysema, unspecified (3) PNA (pneumonia) Assessment/Plan: -start ceftriaxone Code(s): J18.9 - PNEUMONIA, UNSPECIFIED ORGANISM Qualifiers: Pneumonia type: due to unspecified organism Laterality: left Lung location: lower lobe of lung Qualified Code(s): J18.1 - Lobar pneumonia, unspecified organism (4) HTN (hypertension) Assessment/Plan: cont antihypertensives Code(s): I10 - ESSENTIAL (PRIMARY) HYPERTENSION
[2017-08-06] MEDS: VANCOMYCIN 1,000 MG in DEXTROSE 5%-WATER - 250 ML IVPB ONE (23:59)
[2017-08-06] MEDS: HEPARIN NA (PORCINE) 5,000 UNITS/ML 1ML VIAL SQ SCH (23:59)
[2017-08-07] MEDS: BUDESONIDE/FORMETEROL FUMARATE 160/4.5 mcg INHALER IH SCH ×2 (00:02→09:40)
[2017-08-07] MEDS: VANCOMYCIN 1,000 MG in DEXTROSE 5%-WATER - 250 ML IVPB ONE (00:31)
[2017-08-07 01:23] VITALS: BMI 21.6
[2017-08-07] MEDS: morphine SULFATE 4 MG/ML VIAL IVPUSH PRN ×4 (02:07→13:25)
[2017-08-07] MEDS: ALBUTEROL SO4 2.5/IPRATROPIUM 0.5 INH SOL 3 ML VIAL.NEB. NEB SCH ×2 (07:54→11:54)
[2017-08-07 08:06] LABS: BASO % 0.3 % (0-2.0); EOS % 0.3 % (0-4.5); HEMATOCRIT 32.9 % (32.4-45.2); LYMPH % 6.7 % (8-40); MCHC 33.4 g/dl (32.0-36.0); MEAN CELL VOLUME 89.8 fl (80-96); MEAN PLT VOLUME 6.1 fl (7.5-11.1); MONO % 5.6 % (3.8-10.2); NEUT % 87.1 % (42.8-82.8); PLATELET COUNT 216 K/MM3 (134-434); RBC 3.66 M/mm3 (3.60-5.2); RDW 14.4 % (11.6-15.6); WHITE BLOOD COUNT 14.8 K/mm3 (4.0-10.0)
[2017-08-07 08:32] LABS: CHLORIDE 91 mmol/L (98-107); SODIUM 136 mmol/L (136-145)
[2017-08-07 08:55] LABS: ALBUMIN 2.7 g/dl (3.4-5.0); ALK PHOS 45 U/L (45-117); ANION GAP 4 (8-16); BILIRUBIN,TOTAL 0.4 mg/dL (0.2-1.0); BLOOD UREA NITROGEN 19 mg/dL (7-18); CALCIUM 8.3 mg/dL (8.5-10.1); CO2 41 mmol/L (21-32); CREATININE 0.3 mg/dL (0.55-1.02); GLUCOSE,RANDOM 85 mg/dL (74-106); SGOT/AST 15 U/L (15-37); SGPT/ALT 23 U/L (12-78); TOT PROT 5.8 g/dl (6.4-8.2)
--- NOTE | 2017-08-07 08:55 | EKG ---
Test Reason : Blood Pressure : / mmHG Vent. Rate : 099 BPM Atrial Rate : 099 BPM P-R Int : 176 ms QRS Dur : 076 ms QT Int : 350 ms P-R-T Axes : 070 098 070 degrees QTc Int : 449 ms SINUS RHYTHM WITH MARKED SINUS ARRHYTHMIA WITH FREQUENT PREMATURE VENTRICULAR COMPLEXES POSSIBLE LEFT ATRIAL ENLARGEMENT RIGHTWARD AXIS LEFT VENTRICULAR HYPERTROPHY CANNOT RULE OUT SEPTAL INFARCT , AGE UNDETERMINED ABNORMAL ECG WHEN COMPARED WITH ECG OF 07-JUL-2017 12:49, PREMATURE VENTRICULAR COMPLEXES ARE NOW PRESENT Confirmed by JESSY ALAN, LADONNA ([id number]) on 08/07/2017 8:55:17 AM Referred By: Confirmed By:LADONNA JIMÉNEZ MD
[2017-08-07] MEDS ORDERED: cefTRIAXone SODIUM 1 GM VIAL ONE (09:16)
[2017-08-07] MEDS ORDERED: DEXTROSE 5%-WATER - 50 ML IVPB ONE (09:16)
[2017-08-07 09:21] VITALS: TEMP 97.8
[2017-08-07] MEDS: HEPARIN NA (PORCINE) 5,000 UNITS/ML 1ML VIAL SQ SCH (09:31)
[2017-08-07] MEDS ORDERED: ROFLUMILAST 500 MCG TABLET PO SCH (10:00)
[2017-08-07] MEDS ORDERED: CEFTRIAXONE 1 GM in DEXTROSE 5%-WATER - 50 ML IVPB SCH (10:00)
[2017-08-07] MEDS ORDERED: LACTOBACILLUS ACIDOPHILUS 1 TABLET PO SCH (10:00)
[2017-08-07] MEDS ORDERED: MAGNESIUM OXIDE 500 MG PO SCH (10:00)
[2017-08-07] MEDS ORDERED: MAGNESIUM OXIDE 400 MG TABLET (FP) PO SCH (10:00)
[2017-08-07] MEDS ORDERED: ASPIRIN 81 MG CHEWABLE TABLETS PO SCH (10:00)
[2017-08-07] MEDS ORDERED: CALCIUM 500MG/VIT-D 200 UNITS COMBO TABLET (FP) PO SCH (10:00)
[2017-08-07] MEDS ORDERED: ESCITALOPRAM OXALATE 10 MG TABLET (FP) PO SCH (10:00)
[2017-08-07] MEDS ORDERED: TIOTROPIUM BROMIDE 18 MCG CAPSULES IH SCH (10:00)
[2017-08-07] MEDS ORDERED: morphine SULFATE 10 MG/5 ML UNIT-DOSE CUP PO PRN (10:45)
--- NOTE | 2017-08-07 12:05 | DS ---
Physical Examination Vital Signs: Vital Signs Temperature 97.8 F 08/07/17 09:00 Pulse Rate 101 H 08/07/17 09:00 Respiratory Rate 19 08/07/17 09:00 Blood Pressure 115/59 08/07/17 09:00 O2 Sat by Pulse Oximetry (%) 98 08/07/17 06:00 Cardiovascular: Yes: Tachycardia, S1, S2 Respiratory: Yes: Diminished, On Venti-Mask Gastrointestinal: Yes: Normal Bowel Sounds, Soft Edema: No Neurological: Yes: Lethargy Labs: CBC, BMP 08/07/17 07:30 08/07/17 07:30 Discharge Summary Reason For Visit: ACUTE ON CHRONIC RESPIRATORY FAILURE WITH HYPOXIA Current Active Problems Acute and chronic respiratory failure with hypoxia (Acute) COPD (chronic obstructive pulmonary disease) (Acute) Hospital Course: 82 yo female, history of advanced COPD, admitted with worsening shortness of breath and hypoxia. Oxygenation improved with high-flow oxygen, found to have also infiltrate and given ceftriaxone for possible pneumonia, but respiratory status not much improved. Patient's sister recently from lung disease and family members (2 dtrs and son) present and all confirm that it is patient's wish to at home. Given the end-stage nature of her lungs hospice recommended , but family insistent on discharge home, knowing she is end stage, but wanting to follow her wishes to pass at home. Patient has oxygen at home. Was found to have urinary retention and hatch catheter placed. Transportation can be arranged for home, so will discharge with morphine solution to take at home for discomfort and family will assist her until hospice can be arranged at home. Condition: Guarded - Instructions Referrals: Steven Rodney MD [Primary Care Provider] - Disposition: [facility]HOME HEALTH CARE - Home Medications Comprehensive Discharge Medication List: Ambulatory Orders Acetaminophen 500 mg PO Q8H PRN 08/06/17 Alprazolam 0.25 mg PO Q8H PRN 08/06/17 Aspirin [ASA -] 81 mg PO DAILY 08/06/17 Budesonide/Formeterol Fumarate [SYMBICORT 160/4.5mcg -] 2 inh PO BID 08/06/17 Calcium Carbonate/Vitamin D3 [Calcium 600 + D3 Softgel] 1 each PO HS 08/06/17 Cefuroxime Axetil [Cefuroxime] 500 mg PO BID 08/06/17 Diltiazem HCl [Diltiazem ER] 120 mg PO HS 08/06/17 Escitalopram Oxalate [Lexapro -] 10 mg PO DAILY 08/06/17 Furosemide 20 mg PO DAILY PRN 08/06/17 Ipratropium/Albuterol Sulfate [Iprat-Albut 0.5-3(2.5) mg/3 ml] 3 ml IH Q6H PRN 08/06/17 Magnesium Oxide 500 mg PO DAILY 08/06/17 Montelukast Na [Singulair -] 10 mg PO HS 08/06/17 Roflumilast [Daliresp -] 500 mcg PO DAILY 08/06/17 Saccharomyces Boulardii [Florastor] 250 mg PO BID 08/06/17 Simvastatin 20 mg PO HS 08/06/17 Tiotropium [place] [Spiriva] 1 inh PO DAILY 08/06/17
[2017-08-07] MEDS ORDERED: METOPROLOL TARTRATE 5 MG/5 ML VIAL IVPUSH ONE (12:58)
[2017-08-07 13:07] VITALS: BP 118/70; PULSE 142
== END 2017-08-07 15:40 | disposition home health service (06) | DRG 189 ==
LOC: JER 18:26 → JERBED 20:21 → J4W 22:59
PROVIDERS: ADMIT Specialist; ATTEND Specialist
DX: J96.21 Acute and chronic respiratory failure with hypoxia (principal); J18.9 Pneumonia, unspecified organism; R64 Cachexia; Z99.81 Dependence on supplemental oxygen; I10 Essential (primary) hypertension; J44.9 Chronic obstructive pulmonary disease, unspecified; Z85.41 Personal history of malignant neoplasm of cervix uteri; Z87.891 Personal history of nicotine dependence; Z66 Do not resuscitate; Z68.21 Body mass index [BMI] 21.0-21.9, adult
CPT/HCPCS: 36415; 71045-TC-FY; 80053; 82803; 83605; 84484; 85025; 85610; 85730; 87040; 93005; 93010; 94640; 94660; 99285-25; J0131; J1644; J7620